=== PATIENT | female | born 1955 | race Caucasian/White ===

== ENCOUNTER 2020-08-15 11:12 | Inpatient (IN) | payer MEDICARE, OTHER, SELFPAY ==
[2020-08-15] VITALS (7 sets, daily range): BP systolic 136–152; BP diastolic 81–116; PULSE 89–138; RESP 18–24; TEMP 36.1–36.4; O2SAT 95–98; BMI 39.6
--- NOTE | 2020-08-15 12:13 | ED.PSYCH ---
HPI - Psych General Chief Complaint: Psychiatric Symptoms Stated Complaint: CRISIS Time Seen by Provider: 08/15/20 12:05 Source: family Mode of arrival: ambulatory Limitations: no limitations History of Present Illness HPI Narrative: inpatient running through eating to be admitted for ECT. states patient have severe depression which has not responded to medication as worsened the past 2 weeks. states patient tried to commit suicide many times 2 weeks ago states psychiatrist and therapist agree she needs ECT. MD complaint: suicidal ideation and feels depressed Related Data Home Medications Medication Instructions Recorded Confirmed atorvastatin 20 mg PO DAILY 08/15/20 08/15/20 clonazepam 3 mg PO BEDTIME 08/15/20 08/15/20 hydroxyzine HCl 50 mg PO BEDTIME 08/15/20 08/15/20 levothyroxine 88 mcg PO DAILY 08/15/20 08/15/20 mirtazapine 30 mg PO BEDTIME 08/15/20 08/15/20 nitroglycerin 0.4 mg SUBLINGUAL Q5M PRN 08/15/20 08/15/20 propranolol 20 mg PO BID 08/15/20 08/15/20 topiramate 75 mg PO BEDTIME 08/15/20 08/15/20 ziprasidone HCl 20 mg PO DAILY@1700 08/15/20 08/15/20 Allergies Allergy/AdvReac Type Severity Reaction Status Date / Time Iodinated Contrast Media Allergy Intermediate Hives Verified 08/15/20 12:27 Review of Systems Review of Systems: Severe depression and suicidal thoughts. Patient denies any physical complaints. Constitutional: Constitutional: Reports as per HPI and Reports no additional constitutional complaints Eyes: Eyes: Reports as per HPI and Reports no additional eye complaints ENT: Reports system reviewed and no additional complaints, except as documented and Reports as per HPI Cardiovascular: Cardiovascular: Reports as per HPI and Reports no additional cardiovascular complaints Respiratory: Respiratory: Reports as per HPI and Reports no additional respiratory complaints Gastrointestinal: Gastrointestinal: Reports as per HPI and Reports no additional gastrointestinal complaints Genitourinary: Genitourinary: Reports no additional female genitourinary complaints, Reports as per HPI, Denies abnormal menses, Denies abnormal vaginal bleeding, Denies flank pain, Denies urinary incontinence, Denies urinary hesitancy, Denies urinary urgency and Denies vaginal discharge Musculoskeletal: Musculoskeletal: Reports no additional musculoskeletal complaints and Reports as per HPI Psychiatric: Psychiatric: Reports no additional psychiatric complaints, Reports as per HPI, Reports anxiety and Reports depression [facility] Past Medical History Medical History (Updated 08/15/20 @ 17:42 by OMAR Ramirez) Constipation Endometriosis Surgical History (Updated 08/15/20 @ 12:25 by Cheyenne Calderon) Hx of appendectomy Social History Social History Alcohol intake: never Smoking Status: Never smoker Smoked in Last 30 Days: No Use of substances other than those prescribed or required for medical reasons: No Advance Directives: No Advance Directives Information Provided: No Physical Exam Vital Signs: Vital Signs: Vital Signs Temp Pulse Resp BP Pulse Ox 08/15/20 17:06 97.6 F 112 H 152/94 H 96 08/15/20 14:14 97 F 90 20 149/86 H 98 08/15/20 11:32 97 F 93 20 151/116 H 97 08/15/20 11:18 97 F 93 24 H 151/116 H Body Mass Index 39.6 Const: Other: Multiple skin excoriations on body. Patient constantly itching herself. General: cooperative, healthy appearing, no acute distress, well developed, alert and awake Orientation/consciousness: oriented to person, oriented to place, oriented to time and patient oriented x3 HENMT: Head: Yes normal to inspection Eyes: General: appearance normal, both eyes and all related structures Neck: Neck: Yes normal visual inspection, Yes full ROM, Yes no lymphadenopathy, Yes no meningeal signs, No positive Brudzinski's sign and No positive Kernig's sign Chest: Chest palpation & inspection: normal inspection of the chest and normal palpation of entire chest wall Resp: Effort & Inspection: normal respiratory effort, able to speak in complete sentences, no audible wheezes and no cough Auscultation: clear to auscultation bilaterally, no crackles, no rales, no rhonchi and no wheezes Percussion: percussion normal Cardio: Jugular venous distension: no JVD Heart sounds: S1 normal heart sound present and S2 normal heart sound present GI: Other: Multiple excoriation Inspection: Yes normal to inspection and No abdominal wall ecchymosis Palpation (GI): Soft to palpation, not firm, nontender, no guarding and not rigid : General: No CVA tenderness and Yes no CVA tenderness Back/Spine/Pelvis: Back: no CVA tenderness, No CVA tenderness and No back tenderness Skin: Other: positive for skin excoriation Neuro: General: oriented to person, oriented to place, oriented to time, patient oriented x3, no meningeal signs and CN's II-XI intact bilaterally Extrem: Other: positive for excoriations. General: Yes normal to inspection and Yes full ROM Psych: Other: Patient positive for severe anxiety and depression. Patient is suicial Course Course Course Narrative: Patient will have labs and baseline EKG. Crisis consult will be placed for admission. Reevaluation(s) Reevaluation #1: patient is a bed search for psych admission as per Care team organizational development consultant. Awaiating CMP. Case signed out to OMAR Mccabe to follow up CMP. Time: 17:45 MDM - Psych MDM Narrative Medical decision making narrative: Patient is a bed search for psych inpatient. Diagnosis is depression and severe anxety Restraints Face to Face Assessment: Face to Face Assessment: Current Situation: After assessment of the patient, a review of the pertinent medical record and a discussion with nursing staff, I feel the patient requires a restrain intervention. Reaction To: [] Medical Condition: [] Behavioral State: [] Continued Need: [] Lab Data Result diagrams: 08/15/20 15:38 Labs: Lab Results 08/15/20 08/15/20 08/15/20 Range/Units 11:56 11:57 15:38 WBC 6.8 (4.8-10.8) X10*3/uL RBC 5.37 (4.20-5.50) X10*6/uL Hgb 15.1 (12.0-16.0) g/dl Hct 47.4 H (37-47) % MCV 88.3 (80-98) fL MCH 28.1 (27.0-33.0) pg MCHC 31.9 (31.0-35.0) g/dl RDW 14.2 (11.0-16.0) % Plt Count 326 (160-400) X10*3/uL MPV 10.1 (9.4-12.3) fL Immature Gran % (Auto) 0.4 (0.0-0.4) % Neut % (Auto) 72.0 (45-73) % Lymph % (Auto) 19.1 L (20-40) % [place] % (Auto) 5.8 (2-11) % Eos % (Auto) 2.1 (0-4) % Baso % (Auto) 0.6 (0-2) % Lymph # (Auto) 1.3 (1.2-4.9) X10*3/uL [place] # (Auto) 0.4 (0.1-1.2) X10*3/uL Eos # (Auto) 0.1 (0.0-0.4) X10*3/uL Baso # (Auto) 0.0 (0.0-0.2) X10*3/uL Abs Immat Gran (auto) 0.03 (0.00-0.03) X10*3/uL Absolute Neuts (auto) 4.9 (2.0-8.3) X10*3/uL Absolute Nucleated RBC 0.000 (0.0-0.012) X10*3/uL Nucleated RBC % (auto) 0.0 (0.0-0.2) /100WBC PT (10.8-13.0) SEC INR (0.9-1.1) APTT (24.1-38.0) SEC Total Bilirubin (0.0-1.0) mg/dL Direct Bilirubin (0.0-0.5) mg/dL AST (5-31) U/L ALT (0-31) U/L Alkaline Phosphatase (39-117) U/L Total Protein (6.5-8.0) g/dL Albumin (3.5-5.0) g/dL Urine Color YELLOW Urine Appearance HAZY Urine pH 5.5 (5.0-8.0) Ur Specific [place] >= 1.030 H (1.005-1.025) Urine Protein NEG (NEG-TRACE) MG/DL Urine Glucose (UA) NEG (NEG) MG/DL Urine Ketones 40 (NEG) MG/DL Urine Blood NEG (NEG) Urine Nitrite NEG (NEG) Ur Leukocyte Esterase NEG (NEG) Salicylates (15-30) mg/dL Urine Opiates Screen Not Detected (Not Detect) Acetaminophen (<30) mcg/mL Ur Barbiturates Screen Not Detected (Not Detect) Ur Phencyclidine Scrn Not Detected (Not Detect) Ur Amphetamines Screen Not Detected (Not Detect) U Benzodiazepines Scrn POSITIVE H (Not Detect) Urine Cocaine Screen Not Detected (Not Detect) U Marijuana (THC) Screen Not Detected (Not Detect) Ethyl Alcohol mg/dL 08/15/20 08/15/20 08/15/20 Range/Units 15:38 15:38 15:38 WBC (4.8-10.8) X10*3/uL RBC (4.20-5.50) X10*6/uL Hgb (12.0-16.0) g/dl Hct (37-47) % MCV (80-98) fL MCH (27.0-33.0) pg MCHC (31.0-35.0) g/dl RDW (11.0-16.0) % Plt Count (160-400) X10*3/uL MPV (9.4-12.3) fL Immature Gran % (Auto) (0.0-0.4) % Neut % (Auto) (45-73) % Lymph % (Auto) (20-40) % [place] % (Auto) (2-11) % Eos % (Auto) (0-4) % Baso % (Auto) (0-2) % Lymph # (Auto) (1.2-4.9) X10*3/uL [place] # (Auto) (0.1-1.2) X10*3/uL Eos # (Auto) (0.0-0.4) X10*3/uL Baso # (Auto) (0.0-0.2) X10*3/uL Abs Immat Gran (auto) (0.00-0.03) X10*3/uL Absolute Neuts (auto) (2.0-8.3) X10*3/uL Absolute Nucleated RBC (0.0-0.012) X10*3/uL Nucleated RBC % (auto) (0.0-0.2) /100WBC PT (10.8-13.0) SEC INR (0.9-1.1) APTT (24.1-38.0) SEC Total Bilirubin 0.4 (0.0-1.0) mg/dL Direct Bilirubin 0.2 (0.0-0.5) mg/dL AST 18 (5-31) U/L ALT 17 (0-31) U/L Alkaline Phosphatase 99 (39-117) U/L Total Protein 7.0 (6.5-8.0) g/dL Albumin 4.2 (3.5-5.0) g/dL Urine Color Urine Appearance Urine pH (5.0-8.0) Ur Specific [place] (1.005-1.025) Urine Protein (NEG-TRACE) MG/DL Urine Glucose (UA) (NEG) MG/DL Urine Ketones (NEG) MG/DL Urine Blood (NEG) Urine Nitrite (NEG) Ur Leukocyte Esterase (NEG) Salicylates < 5.0 L (15-30) mg/dL Urine Opiates Screen (Not Detect) Acetaminophen < 1 (<30) mcg/mL Ur Barbiturates Screen (Not Detect) Ur Phencyclidine Scrn (Not Detect) Ur Amphetamines Screen (Not Detect) U Benzodiazepines Scrn (Not Detect) Urine Cocaine Screen (Not Detect) U Marijuana (THC) Screen (Not Detect) Ethyl Alcohol < 10 mg/dL 1025/20 Range/Units 15:38 WBC (4.8-10.8) X10*3/uL RBC (4.20-5.50) X10*6/uL Hgb (12.0-16.0) g/dl Hct (37-47) % MCV (80-98) fL MCH (27.0-33.0) pg MCHC (31.0-35.0) g/dl RDW (11.0-16.0) % Plt Count (160-400) X10*3/uL MPV (9.4-12.3) fL Immature Gran % (Auto) (0.0-0.4) % Neut % (Auto) (45-73) % Lymph % (Auto) (20-40) % [place] % (Auto) (2-11) % Eos % (Auto) (0-4) % Baso % (Auto) (0-2) % Lymph # (Auto) (1.2-4.9) X10*3/uL [place] # (Auto) (0.1-1.2) X10*3/uL Eos # (Auto) (0.0-0.4) X10*3/uL Baso # (Auto) (0.0-0.2) X10*3/uL Abs Immat Gran (auto) (0.00-0.03) X10*3/uL Absolute Neuts (auto) (2.0-8.3) X10*3/uL Absolute Nucleated RBC (0.0-0.012) X10*3/uL Nucleated RBC % (auto) (0.0-0.2) /100WBC PT 11.7 (10.8-13.0) SEC INR 1.0 (0.9-1.1) APTT 34.8 (24.1-38.0) SEC Total Bilirubin (0.0-1.0) mg/dL Direct Bilirubin (0.0-0.5) mg/dL AST (5-31) U/L ALT (0-31) U/L Alkaline Phosphatase (39-117) U/L Total Protein (6.5-8.0) g/dL Albumin (3.5-5.0) g/dL Urine Color Urine Appearance Urine pH (5.0-8.0) Ur Specific [place] (1.005-1.025) Urine Protein (NEG-TRACE) MG/DL Urine Glucose (UA) (NEG) MG/DL Urine Ketones (NEG) MG/DL Urine Blood (NEG) Urine Nitrite (NEG) Ur Leukocyte Esterase (NEG) Salicylates (15-30) mg/dL Urine Opiates Screen (Not Detect) Acetaminophen (<30) mcg/mL Ur Barbiturates Screen (Not Detect) Ur Phencyclidine Scrn (Not Detect) Ur Amphetamines Screen (Not Detect) U Benzodiazepines Scrn (Not Detect) Urine Cocaine Screen (Not Detect) U Marijuana (THC) Screen (Not Detect) Ethyl Alcohol mg/dL ECG Data Interpretation: Sinus rhythm with occasional premature ventricular complex ventricular rate 96 incomplete right bundle-branch block negative for STEMI. No EKG changes. Discharge Plan Discharge Clinical Impression: Depression, Acute anxiety Prescriptions: No Action atorvastatin 20 mg Tablet 20 mg PO DAILY RF: 0 clonazepam 1 mg Tablet 3 mg PO BEDTIME RF: 0 topiramate 25 mg Tablet 75 mg PO BEDTIME RF: 0 hydroxyzine HCl 50 mg Tablet 50 mg PO BEDTIME RF: 0 ziprasidone HCl 20 mg Capsule 20 mg PO DAILY@1700 RF: 0 mirtazapine 30 mg Tablet 30 mg PO BEDTIME RF: 0 nitroglycerin 0.4 mg Tablet, Sublingual 0.4 mg SUBLINGUAL Q5M PRN (Reason: Chest Pain) RF: 0 propranolol 20 mg Tablet 20 mg PO BID RF: 0 levothyroxine 88 mcg Capsule 88 mcg PO DAILY RF: 0
[2020-08-15 12:48] LABS: Glucose Urine UA NEG (NEG); Leukocyte Esterase Urine NEG (NEG); Nitrite Urine NEG (NEG); PH 5.5 (5.0-8.0); Specific Gravity - Urine >= 1.030 (1.005-1.025); Urine Blood NEG (NEG); Urine Ketones 40 MG/DL (NEG); Urine Protein NEG (NEG-TRACE)
--- NOTE | 2020-08-15 12:48 | PC.NURSE ---
CARE team in to evaluate
[2020-08-15 12:49] LABS: Appearance Urine HAZY; Color Urine YELLOW
[2020-08-15 13:12] LABS: Barbiturates, Urine Not Detected (Not Detect); Opiate Screen Urine Not Detected (Not Detect); Phencyclidine Screen Urine Not Detected (Not Detect)
[2020-08-15 13:13] LABS: Amphetamine Screen Urine Not Detected (Not Detect); Benzodiazepines Screen Urine POSITIVE (Not Detect); Cannabinoid Screen Urine Not Detected (Not Detect); Cocaine Screen Urine Not Detected (Not Detect)
[2020-08-15] MEDS: clonazePAM 1 MG TABLET 2 MG PO (13:41)
--- NOTE | 2020-08-15 14:36 | ECG_ITS ---
Test Reason : PRE ADMISSION Blood Pressure : / mmHG Vent. Rate : 096 BPM Atrial Rate : 096 BPM P-R Int : 126 ms QRS Dur : 116 ms QT Int : 370 ms P-R-T Axes : 052 028 -15 degrees QTc Int : 467 ms Sinus rhythm with occasional Premature ventricular complexes Incomplete right bundle branch block ST & T wave abnormality, consider inferior ischemia ST & T wave abnormality, consider anterolateral ischemia Abnormal ECG No previous ECGs available Referred By: Manuel Anglin Electronically Signed By:FRANCISCO RIVERS MD
[2020-08-15] MEDS: polyethylene glycoL 3350 17 GM POWD.PACK PO (14:52)
--- NOTE | 2020-08-15 14:56 | PC.NURSE ---
Pt in with . Pt continues to be very tearful, stating repeatedly 'i want to go home.' in w/ pt- at times irritable, accusatory 'if you lost her med list I'll take her out right now.' Pt stating that pt has been hospitalized in the past, and is requesting M5 now, states that pt's psychiatrist has already begun making arrangements w/ pt. Pt medicated for anxiety w/ clonopin - pt reluctant to take stating that ' i wont be able to take any when I get home.' Pt encouraged to accept the clonopin for anxiety and reminded that she will not be able to go home tonight. Pt also accepted medication for constipation- per pt, she has not been able to move her bowels x1 week. states pt has lost a lot of weight recently as she has not been eating, and drinking. Pt did accept miralax for constipation
--- NOTE | 2020-08-15 15:25 | PC.NURSE ---
labs being drawn
[2020-08-15 15:45] LABS: MANUAL DIFF FLAG NO
[2020-08-15 15:46] LABS: Basophils Percent Auto 0.6 % (0-2); Eosinophils Absolute Auto 0.1 X10*3/uL (0.0-0.4); Eosinophils Percent Auto 2.1 % (0-4); Hematocrit 47.4 % (37-47); Hemoglobin 15.1 g/dl (12.0-16.0); Imm Gran Abs Auto 0.03 X10*3/uL (0.00-0.03); Imm Gran Pct Auto 0.4 % (0.0-0.4); Lymphocytes Absolute Auto 1.3 X10*3/uL (1.2-4.9); Lymphocytes Percent Auto 19.1 % (20-40); Mean Corpuscular HGB Conc 31.9 g/dl (31.0-35.0); Mean Corpuscular Hemoglobin 28.1 pg (27.0-33.0); Mean Corpuscular Volume 88.3 fL (80-98); Mean Platelet Volume 10.1 fL (9.4-12.3); Monocytes Absolute Auto 0.4 X10*3/uL (0.1-1.2); Monocytes Percent Auto 5.8 % (2-11); Neutrophils Absolute Auto 4.9 X10*3/uL (2.0-8.3); Platelet Count 326 X10*3/uL (160-400); Red Blood Count 5.37 X10*6/uL (4.20-5.50); Red Cell Distribution Width 14.2 % (11.0-16.0); White Blood Count 6.8 X10*3/uL (4.8-10.8)
[2020-08-15 15:51] LABS: Prothrombin Time 11.7 SEC (10.8-13.0)
[2020-08-15 15:54] LABS: Partial Thromboplastin Time 34.8 SEC (24.1-38.0)
[2020-08-15 16:10] LABS: Acetaminophen LAB < 1 mcg/mL (<30); Alanine Aminotransferase 17 U/L (0-31); Albumin Level 4.2 g/dL (3.5-5.0); Alkaline Phosphatase 99 U/L (39-117); Aspartate Amino Transferase 18 U/L (5-31); Bilirubin Direct 0.2 mg/dL (0.0-0.5); Bilirubin Total 0.4 mg/dL (0.0-1.0); Salicylate < 5.0 mg/dL (15-30)
[2020-08-15 16:12] LABS: Ethanol < 10 mg/dL
--- NOTE | 2020-08-15 16:42 | PC.NURSE ---
of pt stating he needs to leave to go home- pt tearful, stating that she does not want to be here, reassured, pt difficult to console.
[2020-08-15 18:03] LABS: Anion Gap 15 (12-20); Blood Urea Nitrogen 10 mg/dL (9-16); Calcium 9.7 mg/dL (8.4-10.2); Carbon Dioxide 24 mmol/L (22-29); Chloride 106 mmol/L (96-108); Creatinine Clr Calc Pharmacy 67.5; Estimated Glomerular Filt Rate > 60; Glucose Random 125 mg/dL (60-115); Sodium 141 mmol/L (135-145)
[2020-08-15] MEDS: Propranolol HCL 20 MG TABLET PO (20:15)
[2020-08-15] MEDS: Mirtazapine 30 MG TABLET PO (20:15)
[2020-08-15] MEDS: Topiramate 25 MG TABLET 75 MG PO (23:16)
[2020-08-15] MEDS: clonazePAM 1 MG TABLET 3 MG PO (23:16)
[2020-08-15] MEDS: Atorvastatin Calcium 20 MG TABLET PO (23:17)
[2020-08-15] MEDS: Escitalopram Oxalate 5 MG TABLET PO (23:17)
[2020-08-15] MEDS: hydrOXYzine HCL 50 MG TABLET PO (23:17)
[2020-08-16] VITALS (7 sets, daily range): BP systolic 109–133; BP diastolic 67–83; PULSE 70–103; RESP 16–18; TEMP 36.2–36.4; O2SAT 96–98
[2020-08-16] MEDS: Ibuprofen 400 MG TABLET PO (05:28)
--- NOTE | 2020-08-16 06:15 | PC.NURSE ---
Patient in bed appears sleeping, no distress observed/reported, will continue to monitor, will continue to monitor.
--- NOTE | 2020-08-16 07:15 | PC.NURSE ---
PT PACING IN ED. DENIES ANY COMPLAINTS AT THIS TIME. RESPIRATIONS EVEN/UNLABORED BILATERALLY. WILL CONTINUE TO MONITOR.
--- NOTE | 2020-08-16 08:13 | PC.NURSE ---
Pt up to shower.
--- NOTE | 2020-08-16 09:08 | MHC.CARE ---
CARE Team contacted [facility] reference #[id number] , Pts current plan has out of network benefits, a single case agreement is not required. Pts plan additionally does not require pre-certification.
[2020-08-16] MEDS: Levothyroxine Sodium 88 MCG TABLET PO (09:19)
[2020-08-16] MEDS: Propranolol HCL 20 MG TABLET PO ×2 (09:20→21:50)
--- NOTE | 2020-08-16 11:23 | PC.NURSE ---
Pt's is taking all patients belongings home with him.
[2020-08-16] MEDS: polyethylene glycoL 3350 17 GM POWD.PACK PO (12:21)
[2020-08-16] MEDS: Ibuprofen 600 MG TABLET PO ×2 (12:21→18:43)
--- NOTE | 2020-08-16 12:24 | PC.NURSE ---
pt given ibuprofen for back pain and miralax for constipation.
--- NOTE | 2020-08-16 15:21 | PC.NURSE ---
Report received. Resting in room. Declined to place dinner when offered. Ensure ordered. Continues to be a section 12 bed search.
--- NOTE | 2020-08-16 16:26 | P.CNPS_ITS ---
History of Present Illness Chief Complaint: CRISIS Reason for Consult: Impaired sleep, worsening anxiety and depression Requesting physician: Barbara Partida Discussed with referring provider: Yes Sources of Information: patient interviewed and chart reviewed HPI Narrative: Pt is a 64 year old female with history of depression currently awaiting admission to psychiatric unit for worsening depressive sx, suicidal ideation and possible eval for ECT. Consult requested as patient expressing worsening anxiety since in ED and poor sleep last night. Pt seen in room 4 of area. Awake, alert, engaged in interview. Pt laying down for most on interview. Pt intermittently weeping stating she wanted to go home, though at the same time acknowledging that she needed to be admitted. Discussed current sx., including lack of sleep last evening.. Pt stated that inability to sleep last evening was likely due to not receiving one of her medications in the evening as she normally takes it at home. During interview patient asked this mortgage or loan underwriter several times to increase her Klonopin dose, when asked for rationale, she stated I know it will help me sleep . Pt is currently prescribed 3mg of Klonopin at . Past Psychiatric History: Please see crisis eval for full history, but stacy is currently followed outpt by Dr. Kristopher Fuentes Medical Evaluation Reviewed: Yes Personal & Social History: very involved Review of Systems Psychiatric: Reports abnormal sleep pattern, Reports anxiety, Reports change in appetite (decreased ), Reports depression, Reports hopelessness and Reports anhedonia [facility] Medical History (Updated 08/15/20 @ 17:42 by OMAR Ramirez) Constipation Endometriosis Surgical History (Updated 08/15/20 @ 12:25 by Cheyenne Calderon) Hx of appendectomy Diagnostics Vital Signs (24Hr): Vital Signs - 24 hr 08/15/20 17:06 08/15/20 20:15 08/15/20 20:22 Temperature 97.6 F Pulse Rate 112 H 138 H 138 H Respiratory Rate Blood Pressure 152/94 H 152/101 H 151/101 H Pulse Oximetry 96 97 08/15/20 23:24 08/16/20 05:36 08/16/20 09:13 Temperature 96.9 F 97.5 F 97.2 F Pulse Rate 89 103 H 70 Respiratory Rate 18 17 Blood Pressure 136/81 109/83 115/79 Pulse Oximetry 95 97 96 08/16/20 09:20 08/16/20 10:00 08/16/20 12:00 Temperature Pulse Rate 70 Respiratory Rate 16 18 Blood Pressure 115/79 Pulse Oximetry 08/16/20 16:17 Temperature 97.4 F Pulse Rate 86 Respiratory Rate 18 Blood Pressure 133/67 Pulse Oximetry 98 Body Mass Index 39.6 Labs Results: 08/15/20 15:38 08/15/20 15:38 Labs: Laboratory Results - last 48 hr 08/15/20 08/15/20 08/15/20 11:56 11:57 15:38 WBC 6.8 RBC 5.37 Hgb 15.1 Hct 47.4 H MCV 88.3 MCH 28.1 MCHC 31.9 RDW 14.2 Plt Count 326 MPV 10.1 Immature Gran % (Auto) 0.4 Neut % (Auto) 72.0 Lymph % (Auto) 19.1 L [place] % (Auto) 5.8 Eos % (Auto) 2.1 Baso % (Auto) 0.6 Lymph # (Auto) 1.3 [place] # (Auto) 0.4 Eos # (Auto) 0.1 Baso # (Auto) 0.0 Abs Immat Gran (auto) 0.03 Absolute Neuts (auto) 4.9 Absolute Nucleated RBC 0.000 Nucleated RBC % (auto) 0.0 PT INR APTT Sodium Potassium Chloride Carbon Dioxide Anion Gap BUN Creatinine Estim Creat Clear Calc Estimated GFR Random Glucose Calcium Total Bilirubin Direct Bilirubin AST ALT Alkaline Phosphatase Total Protein Albumin Urine Color YELLOW Urine Appearance HAZY Urine pH 5.5 Ur Specific [place] >= 1.030 H Urine Protein NEG Urine Glucose (UA) NEG Urine Ketones 40 Urine Blood NEG Urine Nitrite NEG Ur Leukocyte Esterase NEG Salicylates Urine Opiates Screen Not Detected Acetaminophen Ur Barbiturates Screen Not Detected Ur Phencyclidine Scrn Not Detected Ur Amphetamines Screen Not Detected U Benzodiazepines Scrn POSITIVE H Urine Cocaine Screen Not Detected U Marijuana (THC) Screen Not Detected Ethyl Alcohol 08/15/20 08/15/20 08/15/20 15:38 15:38 15:38 WBC RBC Hgb Hct MCV MCH MCHC RDW Plt Count MPV Immature Gran % (Auto) Neut % (Auto) Lymph % (Auto) [place] % (Auto) Eos % (Auto) Baso % (Auto) Lymph # (Auto) [place] # (Auto) Eos # (Auto) Baso # (Auto) Abs Immat Gran (auto) Absolute Neuts (auto) Absolute Nucleated RBC Nucleated RBC % (auto) PT INR APTT Sodium 141 Potassium 4.0 Chloride 106 Carbon Dioxide 24 Anion Gap 15 BUN 10 Creatinine 0.91 Estim Creat Clear Calc 67.5 Estimated GFR > 60 Random Glucose 125 H Calcium 9.7 Total Bilirubin 0.4 Direct Bilirubin 0.2 AST 18 ALT 17 Alkaline Phosphatase 99 Total Protein 7.0 Albumin 4.2 Urine Color Urine Appearance Urine pH Ur Specific [place] Urine Protein Urine Glucose (UA) Urine Ketones Urine Blood Urine Nitrite Ur Leukocyte Esterase Salicylates < 5.0 L Urine Opiates Screen Acetaminophen < 1 Ur Barbiturates Screen Ur Phencyclidine Scrn Ur Amphetamines Screen U Benzodiazepines Scrn Urine Cocaine Screen U Marijuana (THC) Screen Ethyl Alcohol < 10 08/15/20 15:38 WBC RBC Hgb Hct MCV MCH MCHC RDW Plt Count MPV Immature Gran % (Auto) Neut % (Auto) Lymph % (Auto) [place] % (Auto) Eos % (Auto) Baso % (Auto) Lymph # (Auto) [place] # (Auto) Eos # (Auto) Baso # (Auto) Abs Immat Gran (auto) Absolute Neuts (auto) Absolute Nucleated RBC Nucleated RBC % (auto) PT 11.7 INR 1.0 APTT 34.8 Sodium Potassium Chloride Carbon Dioxide Anion Gap BUN Creatinine Estim Creat Clear Calc Estimated GFR Random Glucose Calcium Total Bilirubin Direct Bilirubin AST ALT Alkaline Phosphatase Total Protein Albumin Urine Color Urine Appearance Urine pH Ur Specific [place] Urine Protein Urine Glucose (UA) Urine Ketones Urine Blood Urine Nitrite Ur Leukocyte Esterase Salicylates Urine Opiates Screen Acetaminophen Ur Barbiturates Screen Ur Phencyclidine Scrn Ur Amphetamines Screen U Benzodiazepines Scrn Urine Cocaine Screen U Marijuana (THC) Screen Ethyl Alcohol Mental Status Exam Mental Status Exam Patient Appearance: Well Grooomed Patient Orientation: Person, Place, Time and Situation Level of Consciousness: Awake and Alert Patient Behavior: Timid and Anxious Mood Description: Depressed, Anxious and Blunted Affect Description: Depressed, Anxious, Blunted and Apprehensive Patient Cognition Impaired: No Ability to Follow Directions: Excellent Speech Pattern: Clear and Soft-Spoken Hallucinations: None Thought Process: Rumination Thought Content: positive for Preoccupation and positive for Slowed Thinking Depressive Symptoms: Increased Anxiety, Difficulty Sleeping, Changes in Appetite, Crying Spells, Hopelessness, Unhappiness, Thoughts of /Suicide (Denies during interview, though attempts prior to admission ), Loss of Energy and Difficulty Concentrating Judgement: Fair Medications Medications Current Medications Generic Name Dose Route Start Last Admin Trade Name Torsten PRN Reason Stop Dose Admin Atorvastatin Calcium 20 mg 08/16/20 21:00 Atorvastatin Calcium 20 Mg Tablet PO BEDTIME ERIN Clonazepam 3 mg 08/15/20 23:15 08/15/20 23:16 Clonazepam 1 Mg Tablet PO 3 mg BEDTIME ERIN Administration Escitalopram Oxalate 5 mg 08/15/20 23:15 08/15/20 23:17 Escitalopram Oxalate 5 Mg Tablet PO 5 mg BEDTIME ERIN Administration Hydroxyzine HCl 50 mg 08/15/20 23:15 08/15/20 23:17 Hydroxyzine Hcl 50 Mg Tablet PO 50 mg BEDTIME ERIN Administration Hydroxyzine HCl 25 mg 08/16/20 16:10 Hydroxyzine Hcl 25 Mg Tablet PO Q6H PRN Anxiety Levothyroxine Sodium 88 mcg 08/16/20 09:00 08/16/20 09:19 Levothyroxine Sodium 88 Mcg Tablet PO 88 mcg DAILY ERIN Administration Mirtazapine 30 mg 08/15/20 21:00 08/15/20 20:15 Mirtazapine 30 Mg Tablet PO 30 mg BEDTIME ERIN Administration Nitroglycerin 0.4 mg 08/15/20 18:42 Nitroglycerin 0.4 Mg Tab.Subl SUBLINGUAL Q5M PRN Chest Pain Propranolol HCl 20 mg 08/15/20 21:00 08/16/20 09:20 Propranolol Hcl 20 Mg Tablet PO 20 mg BID ERIN Administration Protocol Topiramate 75 mg 08/15/20 23:15 08/15/20 23:16 Topiramate 25 Mg Tablet PO 75 mg BEDTIME ERIN Administration Ziprasidone 20 mg 08/16/20 21:00 Ziprasidone 20 Mg Capsule PO BEDTIME ERIN Allergies Allergies Allergy/AdvReac Type Severity Reaction Status Date / Time Iodinated Contrast Media Allergy Intermediate Hives Verified 08/15/20 12:27 Assessment & Plan Assessment & Plan (1) Depression: Status: Acute Code(s): F32.9 - Major depressive disorder, single episode, unspecified Recommendations: * Atarax 25mg PRN for anxiety * Bedtime orders rectified, so pt will now be receiving Geodon as she is taking it at home * Awaiting admission to psychiatric unit Greater than 50% of the session was spent on counseling and/or coordination of care
[2020-08-16] MEDS: Mirtazapine 30 MG TABLET PO (21:50)
[2020-08-16] MEDS: Ziprasidone 20 MG CAPSULE PO (21:51)
[2020-08-16] MEDS: hydrOXYzine HCL 50 MG TABLET PO (21:51)
[2020-08-16] MEDS: Atorvastatin Calcium 20 MG TABLET PO (21:51)
[2020-08-16] MEDS: clonazePAM 1 MG TABLET 3 MG PO (21:51)
[2020-08-16] MEDS: Escitalopram Oxalate 5 MG TABLET PO (21:51)
[2020-08-16] MEDS: Topiramate 25 MG TABLET 75 MG PO (21:51)
[2020-08-17 00:34] VITALS: RESP 16
--- NOTE | 2020-08-17 07:02 | PC.NURSE ---
Report received. PT currently eating breakfast, requesting motrin, denies other complaints. Pt is inpatient bedsearch.
[2020-08-17 08:57] VITALS: BP 107/55; PULSE 89; RESP 16; TEMP 36.6; O2SAT 95
[2020-08-17] MEDS: hydrOXYzine HCL 25 MG TABLET PO ×2 (09:07→22:54)
[2020-08-17] MEDS: Levothyroxine Sodium 88 MCG TABLET PO (09:07)
[2020-08-17 09:10] VITALS: BP 107/55; PULSE 89
[2020-08-17 10:15] LABS: SARS COV2 PCR INHOUSE NEGATIVE (Negative)
[2020-08-17] MEDS: polyethylene glycoL 3350 17 GM POWD.PACK PO (13:52)
[2020-08-17] MEDS: Ibuprofen 600 MG TABLET PO (15:19)
[2020-08-17 15:56] VITALS: BP 131/78; PULSE 111; RESP 16; TEMP 36.2; O2SAT 95
[2020-08-17 18:00] VITALS: BP 131/78; PULSE 111; RESP 16; TEMP 36.2; O2SAT 95
[2020-08-17] MEDS: clonazePAM 1 MG TABLET 3 MG PO (21:25)
[2020-08-17] MEDS: Atorvastatin Calcium 20 MG TABLET PO (21:25)
[2020-08-17] MEDS: Ziprasidone 20 MG CAPSULE PO (21:26)
[2020-08-17] MEDS: Topiramate 25 MG TABLET 75 MG PO (21:26)
[2020-08-17] MEDS: hydrOXYzine HCL 50 MG TABLET PO (21:26)
[2020-08-17 21:27] VITALS: BP 137/92; PULSE 122
[2020-08-17] MEDS: Escitalopram Oxalate 5 MG TABLET PO (21:27)
[2020-08-17] MEDS: Mirtazapine 30 MG TABLET PO (21:27)
[2020-08-17] MEDS: Propranolol HCL 20 MG TABLET PO (21:27)
[2020-08-17] MEDS: Magnesium Citrate 300 ML SOLUTION 150 ML PO (22:53)
[2020-08-18 07:29] VITALS: BP 105/83; PULSE 81; TEMP 35.8
[2020-08-18 08:27] VITALS: BP 105/83; PULSE 81
[2020-08-18] MEDS: Levothyroxine Sodium 88 MCG TABLET PO (08:27)
[2020-08-18] MEDS: Propranolol HCL 20 MG TABLET PO ×2 (08:27→21:42)
[2020-08-18 09:40] VITALS: O2SAT 97
--- NOTE | 2020-08-18 12:14 | P.HPPS_ITS ---
HPI Chief Complaint: Depression Sources of Information: patient interviewed, chart reviewed and crisis/core team assessment reviewed HPI Narrative: the patient is a 64-year-old female with a history of recurrent depression. The patient is referred through the emergency room status post suicide attempt her with a Klonopin overdose. The patient was brought to the emergency room by her who rescue the patient from the overdose attempt. Patient's reportedly states he is no longer able to keep her safe at home. Patient has been increasingly despondent has had problems with concentration attention difficulty D she states with her eyes and feeling that she cannot live like this any longer. She has had her eyes examined there has been no difficulty. Patient is anxious tends to ruminate has reportedly lost 40 lb since March. She has been increasingly hopeless helpless despondent with intrusive suicidal thoughts. She has had a number of reported medication changes including tapering off of Cymbalta clonazepam was recently increased to 3 mg bedtime she was restarted on Lexapro 5 mg daily has been on mirtazapine 30 mg daily. She is also on Topamax 75 mg Geodon 20 mg hydroxyzine 50 mg at bedtime atorvastatin 10 mg daily levothyroxine 88 micro g daily propranolol 20 b.i.d. nitroglycerin 0.4 mg sublingual p.r.n.. The patient has not had trials of lithium Lamictal Abilifkat Rexulti. The patient in the emergency room was reportedly wanting to go home she had been referred to this telegraphic typewriter installer by Dr. Fuentes her outpatient psychiatrist for go luation of ECT or TMS. Patient has been increasingly decompensating since March. Her psychiatrist is Dr. Hannah Fuentes telephone [phone] to patient denies any history of caro denies any history of hallucinations or delusional material Past Psychiatric History: Please see crisis eval for full history, but patient is currently followed outpt by Dr. Kristopher Fuentes the patient has a history of prior psychiatric hospitalizations last at [facility] 2 and half years ago. History of suicidality but until wrist recently no history of past suicide attempt. First depressive episode age 51 the patient has a history of hospitalization at [facility] in 2017 another hospitalization 2018 she is mode had multiple medication trials. [facility] Medical History (Updated 08/18/20 @ 22:26 by Deondre Briceño MD) Constipation Endometriosis Hypercholesteremia Hypertension Major depressive disorder, recurrent severe without psychotic features Surgical History (Updated 08/15/20 @ 12:25 by Cheyenne Calderon) Hx of appendectomy Family History: family history of depression and suicidality id brother committed suicide by hanging Social History: the patient is has 2 children she states she is happily for 46 years the patient is a number of grandchildren patient is 1 of 5 children Substance History: denies any history of alcohol or substance abuse Trauma History: denies any trauma history Diagnostics Vital Signs (24Hr): Vital Signs - 24 hr 08/17/20 15:56 08/17/20 18:00 08/17/20 21:27 Temperature 97.1 F 97.1 F Pulse Rate 111 H 111 H 122 H Respiratory Rate 16 16 Blood Pressure 131/78 131/78 137/92 H Pulse Oximetry 95 95 08/18/20 07:29 08/18/20 08:27 08/18/20 09:40 Temperature 96.4 F L Pulse Rate 81 81 Respiratory Rate Blood Pressure 105/83 105/83 Pulse Oximetry 97 Body Mass Index 39.6 Labs Results: 08/15/20 15:38 08/15/20 15:38 Labs: Laboratory Results - last 48 hr 08/17/20 09:11 Coronavirus (PCR) NEGATIVE Meds/Allergies Meds Home Medications Medication Instructions Recorded Confirmed Type atorvastatin 10 mg PO DAILY 08/15/20 08/15/20 History clonazepam 3 mg PO BEDTIME 08/15/20 08/15/20 History escitalopram oxalate [Lexapro] 5 mg PO BEDTIME 08/15/20 08/15/20 History hydroxyzine HCl 50 mg PO BEDTIME 08/15/20 08/15/20 History levothyroxine 88 mcg PO DAILY 08/15/20 08/15/20 History mirtazapine 30 mg PO BEDTIME 08/15/20 08/15/20 History nitroglycerin 0.4 mg SUBLINGUAL Q5M PRN 08/15/20 08/15/20 History propranolol 20 mg PO BID 08/15/20 08/15/20 History topiramate 75 mg PO BEDTIME 08/15/20 08/15/20 History ziprasidone HCl 20 mg PO DAILY@1700 08/15/20 08/15/20 History Allergies Allergies Allergy/AdvReac Type Severity Reaction Status Date / Time Iodinated Contrast Media Allergy Intermediate Hives Verified 08/15/20 12:27 Mental Status Exam Mental Status Exam Patient Appearance: Appropriate Patient Orientation: Person, Place and Situation Level of Consciousness: Awake Patient Behavior: Talkative Mood Description: Anxious, Sad and Nervous Affect Description: Anxious, Labile ( Becomes tearful in saying she just wants to go home), Sad and Nervous Ability to Follow Directions: Fair Speech Pattern: Perseverating Hallucinations: None Delusions: Not Present Thought Process: Distracted and Rumination Thought Content: positive for Obsessional Thoughts, positive for Perseveration, positive for Suicidal Ideation ( intrusive thoughts that she would be better off cannot stand how she feels denies plan or intent in this setting) and negative for Homicidal Ideation Depressive Symptoms: Increased Anxiety, Insomnia, Difficulty Sleeping, Thoughts of /Suicide and Difficulty Concentrating Judgement: Fair Judgement and Insight: had discussion with patient regarding treatment and ECT need for hospitalization. Patient became caught and obsessional loop has limited insight judgment at this time difficulty with perspective Assessment & Plan Assessment & Plan (1) Major depressive disorder, recurrent severe without psychotic features: Status: Acute Code(s): F33.2 - Major depressive disorder, recurrent severe without psychotic features (2) Suicidal ideation: Status: Acute Code(s): R45.851 - Suicidal ideations (3) Severe anxiety: Status: Acute Code(s): F41.9 - Anxiety disorder, unspecified Assessment and Plan: continue present medication trial. Unclear why patient is on 3 mg of clonazepam and might benefit from Seroquel or Zyprexa at bedtime for agitated depression. Will try and coordinate care with Dr. Fuentes patient's outpatient psychiatrist and will discuss with patient Dr. Fuentes and has been consideration of ECT which has been considered. Patient to unstable for TMS. Consideration could also be given to trial of Abilify. Check labs EKG medical consult patient given literature regarding ECT and also option of viewing inf ormation by video monitor for safety patient denies suicidal plan or intent in this setting had been head banging will monitor Patient educated on: diagnosis, medication risk/benefits and ECT Informed Consent: further education needed Reason for continued inpatient stay Substantial Risk for: harm to self
[2020-08-18] MEDS: hydrOXYzine HCL 25 MG TABLET PO ×2 (12:22→22:43)
[2020-08-18 18:00] VITALS: BP 147/88; PULSE 92; TEMP 36.2
[2020-08-18] MEDS: clonazePAM 1 MG TABLET 3 MG PO (21:40)
[2020-08-18] MEDS: Atorvastatin Calcium 20 MG TABLET PO (21:40)
[2020-08-18] MEDS: Topiramate 25 MG TABLET 75 MG PO (21:41)
[2020-08-18] MEDS: Mirtazapine 30 MG TABLET PO (21:41)
[2020-08-18] MEDS: Escitalopram Oxalate 5 MG TABLET PO (21:41)
[2020-08-18] MEDS: hydrOXYzine HCL 50 MG TABLET PO (21:41)
[2020-08-18 21:42] VITALS: BP 147/88; PULSE 92
[2020-08-18] MEDS: Ziprasidone 20 MG CAPSULE PO (21:42)
--- NOTE | 2020-08-19 | ECG_ITS ---
Test Reason : ECT CLEARENCE Blood Pressure : / mmHG Vent. Rate : 063 BPM Atrial Rate : 063 BPM P-R Int : 112 ms QRS Dur : 118 ms QT Int : 446 ms P-R-T Axes : 028 010 -07 degrees QTc Int : 456 ms Normal sinus rhythm Incomplete right bundle branch block ST & T wave abnormality, consider anterior ischemia Abnormal ECG When compared with ECG of 15-AUG-2020 15:54, Premature ventricular complexes are no longer Present Vent. rate has decreased BY 33 BPM Referred By: Deondre Briceño Electronically Signed By:FRANCISCO RIVERS MD
--- NOTE | 2020-08-19 | CT_ITS ---
EXAMINATION: CT HEAD WITHOUT CONTRAST CLINICAL INFORMATION: pre ect periods of confusion memory difficulty COMPARISON: None TECHNIQUE: Contiguous axial imaging was performed from the skull base to vertex without intravenous administration of contrast. Additional 2-D coronal and sagittal reformatted images are generated on the CT workstation and uploaded to PACS. DOSE LOWERING TECHNIQUES: This CT examination was performed using dose optimization techniques as appropriate, variously including the following: *Automated exposure control *Adjustment of mA and/or kV according to patient size (this includes techniques or standardized protocols for targeted exams where dose is matched to indication/reason for exam; i.e. extremities or head) *Use of iterative reconstruction technique DLP: 728 mGy-cm FINDINGS: There is no intracranial hemorrhage, hematoma, or extra-axial fluid collection. The ventricles are normal in size. There is no hydrocephalus, edema, or mass effect. The zheng-white matter differentiation appears symmetric. There is small perivascular Virchow-Bernard space inferior left basal ganglia. Punctate basal ganglia calcification also seen on left. There is no visible acute territorial infarct or mass lesion. There is incidental dural calcification just right of midline at vertex. The calvarium appears intact. There is no pneumocephalus or orbital emphysema. The visualized sinuses and middle ears and mastoid air cells show no significant mucosal thickening. There are no air-fluid levels. CT/CT head/brain wo con IMPRESSION: No acute intracranial abnormality.
[2020-08-19] MEDS: hydrOXYzine HCL 25 MG TABLET PO ×2 (03:26→09:48)
[2020-08-19 06:55] VITALS: BP 109/55; PULSE 77; RESP 16; TEMP 35.8
[2020-08-19 07:00] VITALS: BMI 38.3
[2020-08-19 08:33] LABS: Alanine Aminotransferase 18 U/L (0-31); Albumin Level 4.1 g/dL (3.5-5.0); Alkaline Phosphatase 99 U/L (39-117); Anion Gap 12 (12-20); Aspartate Amino Transferase 26 U/L (5-31); Bilirubin Total 0.5 mg/dL (0.0-1.0); Blood Urea Nitrogen 12 mg/dL (9-16); Calcium 9.4 mg/dL (8.4-10.2); Carbon Dioxide 27 mmol/L (22-29); Chloride 103 mmol/L (96-108); Cholesterol 151 mg/dL; Creatinine Clr Calc Pharmacy 66.8; Estimated Glomerular Filt Rate > 60; Glucose Fasting 112 mg/dL (60-99); HDL Cholesterol 52 mg/dL; LDL Cholesterol Calculated 76 mg/dl; Potassium 4.2 mmol/l (3.3-5.1); Sodium 138 mmol/L (135-145); Total Protein 6.7 g/dL (6.5-8.0); Triglycerides 119 mg/dL
[2020-08-19 08:49] LABS: TSH reflex Free T4 1.07 mIU/mL (0.32-4.0)
[2020-08-19 09:24] LABS: Reflex LDLD? No
[2020-08-19 09:27] LABS: Folate 12.4 ng/mL (> or = 4.0); Vitamin B12 364 pg/mL (200-900)
[2020-08-19 09:40] VITALS: BP 109/55; PULSE 77
[2020-08-19] MEDS: Propranolol HCL 20 MG TABLET PO ×2 (09:40→21:53)
[2020-08-19] MEDS: Levothyroxine Sodium 88 MCG TABLET PO (09:40)
[2020-08-19] MEDS: Trolamine Salicylate 10 % Cream 85 GM TUBE 1 APPL TOPICAL (16:17)
--- NOTE | 2020-08-19 16:34 | P.CONIM_ITS ---
History of Present Illness Data of Consult Service Date: 08/19/20 Requesting physician: Michelle rBiceño Primary Care Provider: Hilda Flowers MD [facility] Reason for consult: ECT clearance 64 year female with HLD, HTN, hypothyroidism, Major depression who is presently admitted to inpatient Psych unit due to depression with Suicide attempt by klonopin overdose. ECT is being contemplated as part of treatment plan and patient is being medically evaluated for this. She has never had this procedure before and is unsure if she will go through it. She report no chest pain, no sob and MIRAMONTES and does not endorse any covid symptoms. Review of Systems Review of Systems: Gen: no fever Resp: no SOB Card: no chest pain, no leg edema, no MIRAMONTES GI: no N/V Psych: Depression, SI Yes all other systems are reviewed and are negative [facility] Medical History (Updated 08/19/20 @ 16:42 by Darren Patterson MD) Constipation Endometriosis Hypercholesteremia Hypertension Hypothyroidism Major depressive disorder, recurrent severe without psychotic features Functional capacity: independent ambulation Pertinent family history: There is family history of HLD, HTN on both sides of family Surgical History Hx of appendectomy Social History Household Members: Spouse Housing: House Do you presently have visiting nurse or other home services: No Alcohol intake: never Smoking Status: Never smoker Smoked in Last 30 Days: No Use of substances other than those prescribed or required for medical reasons: No Currently Displaying Signs/Symptoms of Drug Intoxication Withdrawal: No Have you been hit, kicked, punched, or otherwise hurt by someone within the past year? If so, by whom?: No Do you feel safe in your current relationship?: Yes Is there a partner from a previous relationship who is making you feel unsafe now?: No Are you made to feel afraid or neglected: No Spiritual Healthcare Practices: NONE IDENTIFIED Advance Directives: No Advance Directives Information Provided: No Advance Directives on File: No Do you have thoughts of harming others: None Do you have a plan to hurt others: No Plan Recently lost weight without trying: Yes service: No Sexual orientation: Straight/Heterosexual Meds Allergies Allergy/AdvReac Type Severity Reaction Status Date / Time Iodinated Contrast Media Allergy Intermediate Hives Verified 08/15/20 12:27 Home Medications Medication Instructions Recorded Confirmed Type atorvastatin 10 mg PO DAILY 08/15/20 08/15/20 History clonazepam 3 mg PO BEDTIME 08/15/20 08/15/20 History escitalopram oxalate [Lexapro] 5 mg PO BEDTIME 08/15/20 08/15/20 History hydroxyzine HCl 50 mg PO BEDTIME 08/15/20 08/15/20 History levothyroxine 88 mcg PO DAILY 08/15/20 08/15/20 History mirtazapine 30 mg PO BEDTIME 08/15/20 08/15/20 History nitroglycerin 0.4 mg SUBLINGUAL Q5M PRN 08/15/20 08/15/20 History propranolol 20 mg PO BID 08/15/20 08/15/20 History topiramate 75 mg PO BEDTIME 08/15/20 08/15/20 History ziprasidone HCl 20 mg PO DAILY@1700 08/15/20 08/15/20 History Physical Exam Vital Signs and Narrative: Vital Signs: Last Vital Signs Temp 96.4 F L 08/19/20 06:55 Pulse 77 08/19/20 09:40 Resp 16 08/19/20 06:55 BP 109/55 L 08/19/20 09:40 Pulse Ox 97 08/18/20 09:40 Body Mass Index 38.3 Results Labs Labs: Laboratory Tests 08/15/20 08/15/20 08/15/20 11:56 11:57 15:38 WBC 6.8 RBC 5.37 Hgb 15.1 Hct 47.4 H MCV 88.3 MCH 28.1 MCHC 31.9 RDW 14.2 Plt Count 326 MPV 10.1 Immature Gran % (Auto) 0.4 Neut % (Auto) 72.0 Lymph % (Auto) 19.1 L [place] % (Auto) 5.8 Eos % (Auto) 2.1 Baso % (Auto) 0.6 Lymph # (Auto) 1.3 [place] # (Auto) 0.4 Eos # (Auto) 0.1 Baso # (Auto) 0.0 Abs Immat Gran (auto) 0.03 Absolute Neuts (auto) 4.9 Absolute Nucleated RBC 0.000 Nucleated RBC % (auto) 0.0 PT INR APTT Sodium Potassium Chloride Carbon Dioxide Anion Gap BUN Creatinine Estim Creat Clear Calc Estimated GFR Random Glucose Fasting Glucose Calcium Total Bilirubin Direct Bilirubin AST ALT Alkaline Phosphatase Total Protein Albumin Triglycerides Cholesterol LDL Cholesterol, Calc HDL Cholesterol Vitamin B12 Folate TSH Urine Color YELLOW Urine Appearance HAZY Urine pH 5.5 Ur Specific [place] >= 1.030 H Urine Protein NEG Urine Glucose (UA) NEG Urine Ketones 40 Urine Blood NEG Urine Nitrite NEG Ur Leukocyte Esterase NEG Salicylates Urine Opiates Screen Not Detected Acetaminophen Ur Barbiturates Screen Not Detected Ur Phencyclidine Scrn Not Detected Ur Amphetamines Screen Not Detected U Benzodiazepines Scrn POSITIVE H Urine Cocaine Screen Not Detected U Marijuana (THC) Screen Not Detected Ethyl Alcohol Coronavirus (PCR) 08/15/20 08/15/20 08/15/20 15:38 15:38 15:38 WBC RBC Hgb Hct MCV MCH MCHC RDW Plt Count MPV Immature Gran % (Auto) Neut % (Auto) Lymph % (Auto) [place] % (Auto) Eos % (Auto) Baso % (Auto) Lymph # (Auto) [place] # (Auto) Eos # (Auto) Baso # (Auto) Abs Immat Gran (auto) Absolute Neuts (auto) Absolute Nucleated RBC Nucleated RBC % (auto) PT INR APTT Sodium 141 Potassium 4.0 Chloride 106 Carbon Dioxide 24 Anion Gap 15 BUN 10 Creatinine 0.91 Estim Creat Clear Calc 67.5 Estimated GFR > 60 Random Glucose 125 H Fasting Glucose Calcium 9.7 Total Bilirubin 0.4 Direct Bilirubin 0.2 AST 18 ALT 17 Alkaline Phosphatase 99 Total Protein 7.0 Albumin 4.2 Triglycerides Cholesterol LDL Cholesterol, Calc HDL Cholesterol Vitamin B12 Folate TSH Urine Color Urine Appearance Urine pH Ur Specific [place] Urine Protein Urine Glucose (UA) Urine Ketones Urine Blood Urine Nitrite Ur Leukocyte Esterase Salicylates < 5.0 L Urine Opiates Screen Acetaminophen < 1 Ur Barbiturates Screen Ur Phencyclidine Scrn Ur Amphetamines Screen U Benzodiazepines Scrn Urine Cocaine Screen U Marijuana (THC) Screen Ethyl Alcohol < 10 Coronavirus (PCR) 08/15/20 08/17/20 08/19/20 15:38 09:11 07:49 WBC RBC Hgb Hct MCV MCH MCHC RDW Plt Count MPV Immature Gran % (Auto) Neut % (Auto) Lymph % (Auto) [place] % (Auto) Eos % (Auto) Baso % (Auto) Lymph # (Auto) [place] # (Auto) Eos # (Auto) Baso # (Auto) Abs Immat Gran (auto) Absolute Neuts (auto) Absolute Nucleated RBC Nucleated RBC % (auto) PT 11.7 INR 1.0 APTT 34.8 Sodium 138 Potassium 4.2 Chloride 103 Carbon Dioxide 27 Anion Gap 12 BUN 12 Creatinine 0.92 Estim Creat Clear Calc 66.8 Estimated GFR > 60 Random Glucose Fasting Glucose 112 H Calcium 9.4 Total Bilirubin 0.5 Direct Bilirubin AST 26 D ALT 18 Alkaline Phosphatase 99 Total Protein 6.7 Albumin 4.1 Triglycerides 119 Cholesterol 151 LDL Cholesterol, Calc 76 HDL Cholesterol 52 Vitamin B12 Folate TSH 1.07 Urine Color Urine Appearance Urine pH Ur Specific [place] Urine Protein Urine Glucose (UA) Urine Ketones Urine Blood Urine Nitrite Ur Leukocyte Esterase Salicylates Urine Opiates Screen Acetaminophen Ur Barbiturates Screen Ur Phencyclidine Scrn Ur Amphetamines Screen U Benzodiazepines Scrn Urine Cocaine Screen U Marijuana (THC) Screen Ethyl Alcohol Coronavirus (PCR) NEGATIVE 08/19/20 07:49 WBC RBC Hgb Hct MCV MCH MCHC RDW Plt Count MPV Immature Gran % (Auto) Neut % (Auto) Lymph % (Auto) [place] % (Auto) Eos % (Auto) Baso % (Auto) Lymph # (Auto) [place] # (Auto) Eos # (Auto) Baso # (Auto) Abs Immat Gran (auto) Absolute Neuts (auto) Absolute Nucleated RBC Nucleated RBC % (auto) PT INR APTT Sodium Potassium Chloride Carbon Dioxide Anion Gap BUN Creatinine Estim Creat Clear Calc Estimated GFR Random Glucose Fasting Glucose Calcium Total Bilirubin Direct Bilirubin AST ALT Alkaline Phosphatase Total Protein Albumin Triglycerides Cholesterol LDL Cholesterol, Calc HDL Cholesterol Vitamin B12 364 Folate 12.4 TSH Urine Color Urine Appearance Urine pH Ur Specific [place] Urine Protein Urine Glucose (UA) Urine Ketones Urine Blood Urine Nitrite Ur Leukocyte Esterase Salicylates Urine Opiates Screen Acetaminophen Ur Barbiturates Screen Ur Phencyclidine Scrn Ur Amphetamines Screen U Benzodiazepines Scrn Urine Cocaine Screen U Marijuana (THC) Screen Ethyl Alcohol Coronavirus (PCR) Assessment and Plan (1) Major depressive disorder, recurrent severe without psychotic features: Status: Acute (2) Severe anxiety: Status: Acute (3) Suicidal ideation: Status: Acute (4) Hypothyroidism: Status: Acute (5) Depression: Status: Acute (6) Acute anxiety: Status: Acute 64 year female with HTN, HLD, hypothyrodism and major depression presently admitted for depression with suicide attempt and is being considered for ECT. She has no angina or heart failure symptoms at this time. I reviewed ECG which does show an incomplete RBBB which appear to be old, no old for comparaison. Recommendation: At this time, there is no absolute contraindication to ECT and one should take usual precaution. ' -Continue home meds for HTN, HLD, Hypotnyroidism. Continue Pharmcotherapy and behavioral therapy for depression. Thanks you for the consult
[2020-08-19 18:00] VITALS: BP 134/71; PULSE 80; TEMP 36.4
--- NOTE | 2020-08-19 21:46 | HO.PSYCHPN ---
Subjective Subjective Date of Service: 08/19/20 Reason For Visit: Depression Subjective Notes: Conditional Voluntary Interim History: patient anxious ruminating depressed somewhat help rejecting distressed complains of visual difficulty states is related to the depression refusing any eye consult ophthalmic consult. Wants to feel better yet fearful of making any medication change. Extensive conversation with patient's this morning risks benefits and alternatives to ECT. He also asked about the possibility of involuntary ECT. Medication Compliance: Yes Side effects from medications: No Mental Status Exam Mental Status Exam Patient Appearance: Appropriate Patient Orientation: Person, Place and Situation Level of Consciousness: Awake Patient Behavior: Talkative, Restless, Fearful and Distractible Mood Description: Depressed, Fearful, Anxious, Sad and Nervous Affect Description: Anxious, Labile ( Becomes tearful in saying she just wants to go home), Sad and Nervous Ability to Follow Directions: Fair Speech Pattern: Perseverating Hallucinations: None Delusions: Not Present Thought Process: Distracted and Rumination Thought Content: positive for Obsessional Thoughts, positive for Perseveration, positive for Suicidal Ideation ( intrusive thoughts that she would be better off cannot stand how she feels denies plan or intent in this setting) and negative for Homicidal Ideation Depressive Symptoms: Increased Anxiety, Insomnia, Difficulty Sleeping, Thoughts of /Suicide and Difficulty Concentrating Judgement: Fair Judgement and Insight: Patient having difficulty taking an information desperately asking for help E et fearful to accept help Diagnostics Vital Signs (24Hr): Vital Signs - 24 hr 08/19/20 06:55 08/19/20 09:40 08/19/20 18:00 Temperature 96.4 F L 97.6 F Pulse Rate 77 77 80 Respiratory Rate 16 Blood Pressure 109/55 L 109/55 L 134/71 Body Mass Index 38.3 Labs Results: 08/15/20 15:38 08/19/20 07:49 Labs: Laboratory Results - last 48 hr 08/19/20 08/19/20 07:49 07:49 Sodium 138 Potassium 4.2 Chloride 103 Carbon Dioxide 27 Anion Gap 12 BUN 12 Creatinine 0.92 Estim Creat Clear Calc 66.8 Estimated GFR > 60 Fasting Glucose 112 H Calcium 9.4 Total Bilirubin 0.5 AST 26 D ALT 18 Alkaline Phosphatase 99 Total Protein 6.7 Albumin 4.1 Triglycerides 119 Cholesterol 151 LDL Cholesterol, Calc 76 HDL Cholesterol 52 Vitamin B12 364 Folate 12.4 TSH 1.07 Imaging Radiology Impressions: ITS Impressions Head CT 08/19/20 00:00 IMPRESSION: No acute intracranial abnormality. Medications Medications Current Medications Generic Name Dose Route Start Last Admin Trade Name Berhaneq PRN Reason Stop Dose Admin Atorvastatin Calcium 20 mg 08/16/20 21:00 08/18/20 21:40 Atorvastatin Calcium 20 Mg Tablet PO 20 mg BEDTIME ERIN Administration Clonazepam 3 mg 08/15/20 23:15 08/18/20 21:40 Clonazepam 1 Mg Tablet PO 3 mg BEDTIME ERIN Administration Escitalopram Oxalate 5 mg 08/15/20 23:15 08/18/20 21:41 Escitalopram Oxalate 5 Mg Tablet PO 5 mg BEDTIME ERIN Administration Hydroxyzine HCl 50 mg 08/15/20 23:15 08/18/20 21:41 Hydroxyzine Hcl 50 Mg Tablet PO 50 mg BEDTIME ERIN Administration Hydroxyzine HCl 25 mg 08/16/20 16:10 08/19/20 09:48 Hydroxyzine Hcl 25 Mg Tablet PO 25 mg Q6H PRN Administration Anxiety Ibuprofen 600 mg 08/19/20 20:12 Ibuprofen 600 Mg Tablet PO Q8H PRN Pain, Moderate (Pain Scale 4-6 Levothyroxine Sodium 88 mcg 08/16/20 09:00 08/19/20 09:40 Levothyroxine Sodium 88 Mcg Tablet PO 88 mcg DAILY ERIN Administration Magnesium Citrate 150 ml 08/17/20 18:31 08/17/20 22:53 Magnesium Citrate 300 Ml Solution PO 150 ml BID PRN Administration Constipation Mirtazapine 30 mg 08/15/20 21:00 08/18/20 21:41 Mirtazapine 30 Mg Tablet PO 30 mg BEDTIME ERIN Administration Nitroglycerin 0.4 mg 08/15/20 18:42 Nitroglycerin 0.4 Mg Tab.Subl SUBLINGUAL Q5M PRN Chest Pain Olanzapine 2.5 mg 08/19/20 21:00 Olanzapine 2.5 Mg Tablet PO BEDTIME ERIN Olanzapine 2.5 mg 08/19/20 17:26 Olanzapine 2.5 Mg Tablet PO BID PRN anxiety/restlessness Propranolol HCl 20 mg 08/15/20 21:00 08/19/20 09:40 Propranolol Hcl 20 Mg Tablet PO 20 mg BID ERIN Administration Protocol Sodium Biphosphate/Sodium Phosphate 133 ml 08/17/20 18:31 Sodium Phosphate,Hardin-Dibasic 133 Ml Enema DE DAILY PRN Constipation Topiramate 50 mg 08/19/20 21:00 Topiramate 25 Mg Tablet PO BEDTIME ERIN Trolamine Salicylate 1 appl 08/19/20 13:52 08/19/20 16:17 Trolamine Salicylate 10 % Cream 85 Gm Tube TOPICAL 1 appl QID PRN Administration Pain, Moderate (Pain Scale 4-6 Protocol Allergies Allergies Allergy/AdvReac Type Severity Reaction Status Date / Time Iodinated Contrast Media Allergy Intermediate Hives Verified 08/15/20 12:27 Assessment & Plan Assessment & Plan (1) Severe anxiety: Status: Acute Code(s): F41.9 - Anxiety disorder, unspecified (2) Suicidal ideation: Status: Acute Code(s): R45.851 - Suicidal ideations (3) Major depressive disorder, recurrent severe without psychotic features: Status: Acute Code(s): F33.2 - Major depressive disorder, recurrent severe without psychotic features Assessment and Plan: all placed to Dr. Hannah Fuentes to this point no return call trying to coordinate care regarding medication and ECT. Had extensive discussion with patient's this morning patient had been referred for ECT discussed how TMS was not an option given patient's instability and recent suicidality. Stop Geoantoni try low-dose Zyprexa for agitated depression med consultation reviewed head CT scan unremarkable no significant contraindications to ECT. EKG incomplete right bundle branch block Greater than 50% of the session was spent on counseling and/or coordination of care Patient educated on: diagnosis, medication risk/benefits and ECT Guardian/Caregiver educated on: medication risk/benefits and ECT Informed Consent: further education needed Reason for contiued inpatient stay Substantial Risk for: harm to self
[2020-08-19] MEDS: Mirtazapine 30 MG TABLET PO (21:50)
[2020-08-19] MEDS: clonazePAM 1 MG TABLET 3 MG PO (21:51)
[2020-08-19] MEDS: Atorvastatin Calcium 20 MG TABLET PO (21:51)
[2020-08-19] MEDS: Escitalopram Oxalate 5 MG TABLET PO (21:51)
[2020-08-19] MEDS: OLANZapine 2.5 MG TABLET PO (21:52)
[2020-08-19] MEDS: hydrOXYzine HCL 50 MG TABLET PO (21:52)
[2020-08-19] MEDS: Topiramate 25 MG TABLET 50 MG PO (21:52)
[2020-08-19 21:53] VITALS: BP 134/71; PULSE 80
[2020-08-20] MEDS: hydrOXYzine HCL 25 MG TABLET PO ×3 (00:17→14:35)
[2020-08-20 06:22] VITALS: BP 105/56; PULSE 89; RESP 16; TEMP 35.7; O2SAT 98
[2020-08-20 08:48] VITALS: BP 105/56; PULSE 89
[2020-08-20] MEDS: Propranolol HCL 20 MG TABLET PO ×2 (08:48→21:38)
[2020-08-20] MEDS: Levothyroxine Sodium 88 MCG TABLET PO (08:48)
[2020-08-20] MEDS: Trolamine Salicylate 10 % Cream 85 GM TUBE 1 APPL TOPICAL (09:33)
--- NOTE | 2020-08-20 10:42 | P.PNPSI_ITS ---
Subjective Subjective Reason For Visit: Depression Subjective Notes: Conditional Voluntary Interim History: Patient severely depressed anxious worried about electric bill therapy or at having electric for therapy. Has symptomatic preoccupation worries about insomnia given psychoeducation about ECT a at other option Medication Compliance: Yes Side effects from medications: No Attending Groups: No Mental Status Exam Mental Status Exam Narrative: withdrawn or giated when engaged Patient Appearance: Disheveled and Appropriate Patient Orientation: Person, Place, Time and Situation Level of Consciousness: Awake and Appropriate Patient Behavior: Passive, Restless and Anxious Mood Description: Constricted, Depressed, Anxious, Sad, Nervous and Apprehensive Affect Description: Depressed Patient Cognition Impaired: No Ability to Follow Directions: Poor Speech Pattern: Clear Thought Process: Rumination Thought Content: positive for Obsessional Thoughts and positive for Perseveration Depressive Symptoms: Diff. Making Decisions, Crying Spells and Significant Weight Loss Judgement: Fair Diagnostics Vital Signs (24Hr): Vital Signs - 24 hr 08/19/20 18:00 08/19/20 21:53 08/20/20 06:22 Temperature 97.6 F 96.3 F L Pulse Rate 80 80 89 Respiratory Rate 16 Blood Pressure 134/71 134/71 105/56 L Pulse Oximetry 98 08/20/20 08:48 Temperature Pulse Rate 89 Respiratory Rate Blood Pressure 105/56 L Pulse Oximetry Body Mass Index 38.3 Labs Results: 08/15/20 15:38 08/19/20 07:49 Labs: Laboratory Results - last 48 hr 08/19/20 08/19/20 07:49 07:49 Sodium 138 Potassium 4.2 Chloride 103 Carbon Dioxide 27 Anion Gap 12 BUN 12 Creatinine 0.92 Estim Creat Clear Calc 66.8 Estimated GFR > 60 Fasting Glucose 112 H Calcium 9.4 Total Bilirubin 0.5 AST 26 D ALT 18 Alkaline Phosphatase 99 Total Protein 6.7 Albumin 4.1 Triglycerides 119 Cholesterol 151 LDL Cholesterol, Calc 76 HDL Cholesterol 52 Vitamin B12 364 Folate 12.4 TSH 1.07 Imaging Radiology Impressions: ITS Impressions Head CT 08/19/20 00:00 IMPRESSION: No acute intracranial abnormality. Medications Medications Current Medications Generic Name Dose Route Start Last Admin Trade Name Freq PRN Reason Stop Dose Admin Atorvastatin Calcium 20 mg 08/16/20 21:00 08/19/20 21:51 Atorvastatin Calcium 20 Mg Tablet PO 20 mg BEDTIME ERIN Administration Clonazepam 3 mg 08/15/20 23:15 08/19/20 21:51 Clonazepam 1 Mg Tablet PO 3 mg BEDTIME ERIN Administration Escitalopram Oxalate 5 mg 08/15/20 23:15 08/19/20 21:51 Escitalopram Oxalate 5 Mg Tablet PO 5 mg BEDTIME ERIN Administration Hydroxyzine HCl 50 mg 08/15/20 23:15 08/19/20 21:52 Hydroxyzine Hcl 50 Mg Tablet PO 50 mg BEDTIME ERIN Administration Hydroxyzine HCl 25 mg 08/16/20 16:10 08/20/20 08:49 Hydroxyzine Hcl 25 Mg Tablet PO 25 mg Q6H PRN Administration Anxiety Ibuprofen 600 mg 08/19/20 20:12 Ibuprofen 600 Mg Tablet PO Q8H PRN Pain, Moderate (Pain Scale 4-6 Levothyroxine Sodium 88 mcg 08/16/20 09:00 08/20/20 08:48 Levothyroxine Sodium 88 Mcg Tablet PO 88 mcg DAILY ERIN Administration Magnesium Citrate 150 ml 08/17/20 18:31 08/17/20 22:53 Magnesium Citrate 300 Ml Solution PO 150 ml BID PRN Administration Constipation Mirtazapine 30 mg 08/15/20 21:00 08/19/20 21:50 Mirtazapine 30 Mg Tablet PO 30 mg BEDTIME ERIN Administration Nitroglycerin 0.4 mg 08/15/20 18:42 Nitroglycerin 0.4 Mg Tab.Subl SUBLINGUAL Q5M PRN Chest Pain Olanzapine 2.5 mg 08/19/20 21:00 08/19/20 21:52 Olanzapine 2.5 Mg Tablet PO 2.5 mg BEDTIME ERIN Administration Olanzapine 2.5 mg 08/19/20 17:26 Olanzapine 2.5 Mg Tablet PO BID PRN anxiety/restlessness Olanzapine 2.5 mg 08/20/20 10:26 Olanzapine 2.5 Mg Tablet PO 08/20/20 10:27 ONCE ONE Propranolol HCl 20 mg 08/15/20 21:00 08/20/20 08:48 Propranolol Hcl 20 Mg Tablet PO 20 mg BID ERIN Administration Protocol Sodium Biphosphate/Sodium Phosphate 133 ml 08/17/20 18:31 Sodium Phosphate,[place]-Dibasic 133 Ml Enema [place] DAILY PRN Constipation Topiramate 50 mg 08/19/20 21:00 08/19/20 21:52 Topiramate 25 Mg Tablet PO 50 mg BEDTIME ERIN Administration Trolamine Salicylate 1 appl 08/19/20 13:52 08/20/20 09:33 Trolamine Salicylate 10 % Cream 85 Gm Tube TOPICAL 1 appl QID PRN Administration Pain, Moderate (Pain Scale 4-6 Protocol Allergies Allergies Allergy/AdvReac Type Severity Reaction Status Date / Time Iodinated Contrast Media Allergy Intermediate Hives Verified 08/15/20 12:27 Assessment & Plan Assessment & Plan (1) Severe anxiety: Status: Acute Code(s): F41.9 - Anxiety disorder, unspecified (2) Major depressive disorder, recurrent severe without psychotic features: Status: Acute Code(s): F33.2 - Major depressive disorder, recurrent severe without psychotic features Assessment and Plan: head CT scan med consult reviewed EKG right bundle-branch block incomplete patient felt medically stable for ECT Zyprexa added for anxiety obsessional thinking Greater than 50% of the session was spent on counseling and/or coordination of care
[2020-08-20] MEDS: OLANZapine 2.5 MG TABLET PO (10:53)
[2020-08-20 18:00] VITALS: BP 151/79; PULSE 90; TEMP 36.3
[2020-08-20] MEDS: clonazePAM 1 MG TABLET 3 MG PO (21:35)
[2020-08-20] MEDS: OLANZapine 2.5 MG TABLET 5 MG PO (21:36)
[2020-08-20] MEDS: hydrOXYzine HCL 50 MG TABLET PO (21:36)
[2020-08-20] MEDS: Escitalopram Oxalate 5 MG TABLET PO (21:37)
[2020-08-20] MEDS: Atorvastatin Calcium 20 MG TABLET PO (21:37)
[2020-08-20] MEDS: Mirtazapine 30 MG TABLET PO (21:37)
[2020-08-20 21:38] VITALS: BP 151/79; PULSE 90
[2020-08-20] MEDS: Topiramate 25 MG TABLET 50 MG PO (21:38)
[2020-08-21] MEDS: hydrOXYzine HCL 25 MG TABLET PO ×2 (00:51→09:27)
[2020-08-21] MEDS: OLANZapine 2.5 MG TABLET PO (00:51)
[2020-08-21 06:35] VITALS: BP 118/74; PULSE 79; RESP 16; TEMP 36.1
[2020-08-21] MEDS: Propranolol HCL 20 MG TABLET PO ×2 (09:24→22:24)
[2020-08-21] MEDS: Levothyroxine Sodium 88 MCG TABLET PO (09:24)
--- NOTE | 2020-08-21 10:53 | P.PNPSI_ITS ---
Subjective Subjective Date of Service: 08/21/20 Reason For Visit: Depression Subjective Notes: Conditional Voluntary Interim History: Pt anxious and depressed, fearful about ECT and perseverating about what would help her best but can't make decision around it mostly isolating to her room Medication Compliance: Yes Side effects from medications: No Attending Groups: Intermittent Review of Systems Constitutional: Reports fatigue, Reports lethargy and Reports malaise Endocrine: Reports fatigue Mental Status Exam Mental Status Exam Narrative: lying in bed, looking sad and anxious Patient Appearance: Fatigued and Appropriate Patient Orientation: Person, Place, Time and Situation Level of Consciousness: Awake and Appropriate Patient Behavior: Dependent, Passive and Anxious Mood Description: Constricted and Depressed Affect Description: Withdrawn Patient Cognition Impaired: No Ability to Follow Directions: Fair Speech Pattern: Clear and Soft-Spoken Hallucinations: None Thought Process: Intact, Goal Oriented and Slowed Thinking Thought Content: positive for Goal Oriented, positive for Perseveration (ambivalent) and positive for Poverty of Content Depressive Symptoms: Diff. Making Decisions, Difficulty Sleeping, Loss of Int. in Activity, Hopelessness, Unhappiness and Difficulty Concentrating Judgement: Fair Diagnostics Vital Signs (24Hr): Vital Signs - 24 hr 08/20/20 18:00 08/20/20 21:38 08/21/20 06:35 Temperature 97.4 F 96.9 F Pulse Rate 90 90 79 Respiratory Rate 16 Blood Pressure 151/79 H 151/79 H 118/74 Body Mass Index 38.3 Labs Results: 08/15/20 15:38 08/19/20 07:49 Imaging Radiology Impressions: ITS Impressions Head CT 08/19/20 00:00 IMPRESSION: No acute intracranial abnormality. Medications Medications Current Medications Generic Name Dose Route Start Last Admin Trade Name Freq PRN Reason Stop Dose Admin Atorvastatin Calcium 20 mg 08/16/20 21:00 08/20/20 21:37 Atorvastatin Calcium 20 Mg Tablet PO 20 mg BEDTIME ERIN Administration Clonazepam 3 mg 08/15/20 23:15 08/20/20 21:35 Clonazepam 1 Mg Tablet PO 3 mg BEDTIME ERIN Administration Escitalopram Oxalate 5 mg 08/15/20 23:15 08/20/20 21:37 Escitalopram Oxalate 5 Mg Tablet PO 5 mg BEDTIME ERIN Administration Hydroxyzine HCl 50 mg 08/15/20 23:15 08/20/20 21:36 Hydroxyzine Hcl 50 Mg Tablet PO 50 mg BEDTIME ERIN Administration Hydroxyzine HCl 25 mg 08/16/20 16:10 08/21/20 09:27 Hydroxyzine Hcl 25 Mg Tablet PO 25 mg Q6H PRN Administration Anxiety Ibuprofen 600 mg 08/19/20 20:12 Ibuprofen 600 Mg Tablet PO Q8H PRN Pain, Moderate (Pain Scale 4-6 Levothyroxine Sodium 88 mcg 08/16/20 09:00 08/21/20 09:24 Levothyroxine Sodium 88 Mcg Tablet PO 88 mcg DAILY ERIN Administration Magnesium Citrate 150 ml 08/17/20 18:31 08/17/20 22:53 Magnesium Citrate 300 Ml Solution PO 150 ml BID PRN Administration Constipation Mirtazapine 30 mg 08/15/20 21:00 08/20/20 21:37 Mirtazapine 30 Mg Tablet PO 30 mg BEDTIME ERIN Administration Nitroglycerin 0.4 mg 08/15/20 18:42 Nitroglycerin 0.4 Mg Tab.Subl SUBLINGUAL Q5M PRN Chest Pain Olanzapine 2.5 mg 08/19/20 17:26 08/21/20 00:51 Olanzapine 2.5 Mg Tablet PO 2.5 mg BID PRN Administration anxiety/restlessness Olanzapine 5 mg 08/20/20 21:00 08/20/20 21:36 Olanzapine 2.5 Mg Tablet PO 5 mg BEDTIME ERIN Administration Propranolol HCl 20 mg 08/15/20 21:00 08/21/20 09:24 Propranolol Hcl 20 Mg Tablet PO 20 mg BID ERIN Administration Protocol Sodium Biphosphate/Sodium Phosphate 133 ml 08/17/20 18:31 Sodium Phosphate,[place]-Dibasic 133 Ml Enema [place] DAILY PRN Constipation Topiramate 50 mg 08/19/20 21:00 08/20/20 21:38 Topiramate 25 Mg Tablet PO 50 mg BEDTIME ERIN Administration Trolamine Salicylate 1 appl 08/19/20 13:52 08/20/20 09:33 Trolamine Salicylate 10 % Cream 85 Gm Tube TOPICAL 1 appl QID PRN Administration Pain, Moderate (Pain Scale 4-6 Protocol Allergies Allergies Allergy/AdvReac Type Severity Reaction Status Date / Time Iodinated Contrast Media Allergy Intermediate Hives Verified 08/15/20 12:27 Assessment & Plan Assessment & Plan (1) Major depressive disorder, recurrent severe without psychotic features: Status: Acute Code(s): F33.2 - Major depressive disorder, recurrent severe without psychotic features Assessment and Plan: discussed medication and trial of ECT Greater than 50% of the session was spent on counseling and/or coordination of care
[2020-08-21] MEDS: clonazePAM 1 MG TABLET 3 MG PO (22:16)
[2020-08-21] MEDS: Atorvastatin Calcium 20 MG TABLET PO (22:16)
[2020-08-21] MEDS: Escitalopram Oxalate 5 MG TABLET PO (22:16)
[2020-08-21] MEDS: Topiramate 25 MG TABLET 50 MG PO (22:17)
[2020-08-21] MEDS: hydrOXYzine HCL 50 MG TABLET PO (22:17)
[2020-08-21] MEDS: Mirtazapine 30 MG TABLET PO (22:17)
[2020-08-21] MEDS: OLANZapine 5 MG TABLET PO (22:20)
[2020-08-21 22:24] VITALS: BP 136/68; PULSE 60
[2020-08-21 22:28] VITALS: TEMP 36.1
[2020-08-22] MEDS: Ibuprofen 600 MG TABLET PO (01:05)
[2020-08-22] MEDS: hydrOXYzine HCL 25 MG TABLET PO ×2 (01:05→09:00)
[2020-08-22 06:00] VITALS: BP 135/70; PULSE 80; RESP 18; TEMP 36.6; O2SAT 98
[2020-08-22] MEDS: Propranolol HCL 20 MG TABLET PO ×2 (09:00→22:14)
[2020-08-22] MEDS: Levothyroxine Sodium 88 MCG TABLET PO (09:01)
[2020-08-22] MEDS: OLANZapine 2.5 MG TABLET PO (13:13)
--- NOTE | 2020-08-22 15:00 | HO.PSYCHPN ---
Subjective Subjective Date of Service: 08/22/20 Reason For Visit: Depression Subjective Notes: Conditional Voluntary Interim History: continues agitated and ambivalent, anxious and depressed can't make decision about treatment Medication Compliance: Yes Side effects from medications: No Attending Groups: Intermittent Review of Systems Acute medical concerns: No Review of Systems Review of Systems Yes all other systems are reviewed and are negative Mental Status Exam Mental Status Exam Narrative: withdrawn or giated when engaged Patient Appearance: Fatigued and Appropriate Patient Orientation: Person, Place, Time and Situation Level of Consciousness: Awake and Appropriate Patient Behavior: Passive, Restless and Anxious Mood Description: Anxious Affect Description: Depressed Patient Cognition Impaired: No Ability to Follow Directions: Poor Speech Pattern: Clear Thought Process: Rumination Thought Content: positive for Obsessional Thoughts and positive for Perseveration Depressive Symptoms: Diff. Making Decisions Judgement: Fair Diagnostics Vital Signs (24Hr): Vital Signs - 24 hr 08/21/20 22:24 08/21/20 22:28 08/22/20 06:00 Temperature 97.0 F 97.9 F Pulse Rate 60 80 Respiratory Rate 18 Blood Pressure 136/68 135/70 Pulse Oximetry 98 Body Mass Index 38.3 Labs Results: 08/15/20 15:38 08/19/20 07:49 Imaging Radiology Impressions: ITS Impressions Head CT 08/19/20 00:00 IMPRESSION: No acute intracranial abnormality. Medications Medications Current Medications Generic Name Dose Route Start Last Admin Trade Name Freq PRN Reason Stop Dose Admin Atorvastatin Calcium 20 mg 08/16/20 21:00 08/21/20 22:16 Atorvastatin Calcium 20 Mg Tablet PO 20 mg BEDTIME ERIN Administration Clonazepam 3 mg 08/15/20 23:15 08/21/20 22:16 Clonazepam 1 Mg Tablet PO 3 mg BEDTIME ERIN Administration Escitalopram Oxalate 5 mg 08/15/20 23:15 08/21/20 22:16 Escitalopram Oxalate 5 Mg Tablet PO 5 mg BEDTIME ERIN Administration Hydroxyzine HCl 50 mg 08/15/20 23:15 08/21/20 22:17 Hydroxyzine Hcl 50 Mg Tablet PO 50 mg BEDTIME ERIN Administration Hydroxyzine HCl 25 mg 08/16/20 16:10 08/22/20 09:00 Hydroxyzine Hcl 25 Mg Tablet PO 25 mg Q6H PRN Administration Anxiety Ibuprofen 600 mg 08/19/20 20:12 08/22/20 01:05 EDT Ibuprofen 600 Mg Tablet PO 600 mg Q8H PRN Administration Pain, Moderate (Pain Scale 4-6 Levothyroxine Sodium 88 mcg 08/16/20 09:00 08/22/20 09:01 Levothyroxine Sodium 88 Mcg Tablet PO 88 mcg DAILY ERIN Administration Magnesium Citrate 150 ml 08/17/20 18:31 08/17/20 22:53 Magnesium Citrate 300 Ml Solution PO 150 ml BID PRN Administration Constipation Mirtazapine 30 mg 08/15/20 21:00 08/21/20 22:17 Mirtazapine 30 Mg Tablet PO 30 mg BEDTIME ERIN Administration Nitroglycerin 0.4 mg 08/15/20 18:42 Nitroglycerin 0.4 Mg Tab.Subl SUBLINGUAL Q5M PRN Chest Pain Olanzapine 2.5 mg 08/19/20 17:26 08/21/20 00:51 Olanzapine 2.5 Mg Tablet PO 2.5 mg BID PRN Administration anxiety/restlessness Olanzapine 5 mg 08/22/20 21:00 08/21/20 22:20 Olanzapine 5 Mg Tablet PO 5 mg BEDTIME ERIN Administration Olanzapine 2.5 mg 08/22/20 11:50 08/22/20 13:13 Olanzapine 2.5 Mg Tablet PO 2.5 mg DAILY ERIN Administration Propranolol HCl 20 mg 08/15/20 21:00 08/22/20 09:00 Propranolol Hcl 20 Mg Tablet PO 20 mg BID ERIN Administration Protocol Sodium Biphosphate/Sodium Phosphate 133 ml 08/17/20 18:31 Sodium Phosphate,[place]-Dibasic 133 Ml Enema [place] DAILY PRN Constipation Topiramate 50 mg 08/19/20 21:00 08/21/20 22:17 Topiramate 25 Mg Tablet PO 50 mg BEDTIME ERIN Administration Trolamine Salicylate 1 appl 08/19/20 13:52 08/20/20 09:33 Trolamine Salicylate 10 % Cream 85 Gm Tube TOPICAL 1 appl QID PRN Administration Pain, Moderate (Pain Scale 4-6 Protocol Allergies Allergies Allergy/AdvReac Type Severity Reaction Status Date / Time Iodinated Contrast Media Allergy Intermediate Hives Verified 08/15/20 12:27 Assessment & Plan Assessment & Plan (1) Major depressive disorder, recurrent severe without psychotic features: Status: Acute Code(s): F33.2 - Major depressive disorder, recurrent severe without psychotic features Assessment and Plan: discussed advising ECt (2) Severe anxiety: Status: Acute Code(s): F41.9 - Anxiety disorder, unspecified Assessment and Plan: add low dose olanzapine in am , vistaril not bring much relief to agita in am Greater than 50% of the session was spent on counseling and/or coordination of care
[2020-08-22] MEDS: hydrOXYzine HCL 50 MG TABLET PO (22:11)
[2020-08-22] MEDS: OLANZapine 5 MG TABLET PO (22:13)
[2020-08-22] MEDS: Atorvastatin Calcium 20 MG TABLET PO (22:13)
[2020-08-22] MEDS: Mirtazapine 30 MG TABLET PO (22:13)
[2020-08-22] MEDS: Escitalopram Oxalate 5 MG TABLET PO (22:13)
[2020-08-22 22:14] VITALS: BP 177/94; PULSE 102
[2020-08-23] VITALS (14 sets, daily range): BP systolic 113–156; BP diastolic 51–92; PULSE 73–92; RESP 16–18; TEMP 36.1–36.4; O2SAT 93–96
--- NOTE | 2020-08-23 07:35 | MHC.SHP ---
Pre-Procedural Eval Section A The patient is an INPATIENT: Yes Changes since office visit: Yes Changes in Medication and Yes Patient answered all questions; No Cold of Flu in the past 2 weeks and No New Medical Problems The History & Physical has been completed within 30 days and I have reviewed it.: Yes Section B Chief Complaint: Depression Allergies: Allergies Allergy/AdvReac Type Severity Reaction Status Date / Time Iodinated Contrast Media Allergy Intermediate Hives Verified 08/15/20 12:27 Plan Patient has been examined and remains a candidate for the planned procedure
--- NOTE | 2020-08-23 07:35 | HO.ECTPROC ---
ECT Procedure Note Diagnosis/Treatment Diagnosis: Major Depressive Disorder Current Treatment Number: 1 Treatment: Series Interval Clinical Notes: pt with severe anxiety and depression ECT Settings Device: THYMATRON DGx Electrode Placement: Right Unilateral Program/Pulse Width: 0.50 Energy Percent: 100 Seizure Duration By EEG (in seconds): 21 Medications Administration General Anesthetic: Propofol (60 for flumaz effect 140 mg for procedure ) Muscle Relaxant: Succinylcholine (80) Ancillary Medications Analgesics: Torodol - Pre ECT (15) Anti-emetics: Zofran - Pre ECT (4) Miscillaneous Medications: Flumazenil (0.5) Airway Management Airway Management: Bag Mask Ventilation Treatment Recommendations Electrode Placement: Right Unilateral Program/Pulse Width: 0.50 Energy Percent: 100 Notes: change to etomidate give .25 flumazenil just before giving etom Had anxiety with flumazenil Pt Tolerated Procedure w/o Issue: Yes
[2020-08-23] MEDS: clonazePAM 0.5 MG TABLET PO (08:35)
[2020-08-23] MEDS: OLANZapine 2.5 MG TABLET PO ×3 (08:39→22:22)
--- NOTE | 2020-08-23 09:09 | HO.POSTANES ---
Post Anesthesia Evaluation Post Anesthesia Evaluation Vital Signs: Vital Signs Temp Pulse Resp BP Pulse Ox 08/23/20 08:55 97.2 F 73 16 152/89 H 94 08/23/20 08:40 80 16 135/82 93 08/23/20 08:25 82 16 135/75 93 08/23/20 08:20 82 16 141/70 H 95 08/23/20 08:15 78 16 129/65 95 08/23/20 08:10 97.6 F 75 18 113/51 L 95 08/23/20 06:54 96.9 F 77 16 145/88 H 94 08/23/20 05:48 97.2 F 87 16 121/69 96 08/23/20 05:35 97.2 F 87 16 121/69 96 08/23/20 00:01 97.5 F 75 16 128/62 08/22/20 22:14 102 H 177/94 H Anesthesia: General Mental Status: Awake Pain Control: Satisfactory Nausea/Vomiting: None Hydration: Adequate Anesthesia-Related Issues: No Anes. Related Issues
[2020-08-23] MEDS: Levothyroxine Sodium 88 MCG TABLET PO (10:11)
[2020-08-23] MEDS: Propranolol HCL 20 MG TABLET PO ×2 (10:11→22:21)
[2020-08-23] MEDS: clonazePAM 1 MG TABLET 3 MG PO (22:22)
[2020-08-23] MEDS: Atorvastatin Calcium 20 MG TABLET PO (22:22)
[2020-08-23] MEDS: Mirtazapine 30 MG TABLET PO (22:23)
[2020-08-23] MEDS: hydrOXYzine HCL 50 MG TABLET PO (22:23)
--- NOTE | 2020-08-23 23:22 | HO.PSYCHPN ---
Subjective Subjective Reason For Visit: Depression Interim History: see ECT note patient did have anxiety reaction when given flumazenil. Patient ask for help but fearful of almost all options. Severe anxiety Mental Status Exam Mental Status Exam Narrative: withdrawn or giated when engaged Patient Appearance: Appropriate Patient Orientation: Person, Place, Time and Situation Level of Consciousness: Awake and Appropriate Patient Behavior: Passive, Restless and Anxious Mood Description: Constricted, Depressed, Anxious, Sad, Nervous and Apprehensive Affect Description: Depressed Patient Cognition Impaired: No Ability to Follow Directions: Poor Speech Pattern: Clear Diagnostics Vital Signs (24Hr): Vital Signs - 24 hr 08/23/20 00:01 08/23/20 05:35 08/23/20 05:48 Temperature 97.5 F 97.2 F 97.2 F Pulse Rate 75 87 87 Respiratory Rate 16 16 16 Blood Pressure 128/62 121/69 121/69 Pulse Oximetry 96 96 08/23/20 06:54 08/23/20 08:10 08/23/20 08:15 Temperature 96.9 F 97.6 F Pulse Rate 77 75 78 Respiratory Rate 16 18 16 Blood Pressure 145/88 H 113/51 L 129/65 Pulse Oximetry 94 95 95 08/23/20 08:20 08/23/20 08:25 08/23/20 08:40 Temperature Pulse Rate 82 82 80 Respiratory Rate 16 16 16 Blood Pressure 141/70 H 135/75 135/82 Pulse Oximetry 95 93 93 08/23/20 08:55 08/23/20 10:00 08/23/20 10:11 Temperature 97.2 F 97.6 F Pulse Rate 73 75 75 Respiratory Rate 16 Blood Pressure 152/89 H 140/92 H 140/92 H Pulse Oximetry 94 93 08/23/20 22:21 Temperature Pulse Rate 92 Respiratory Rate Blood Pressure 156/75 H Pulse Oximetry Body Mass Index 38.3 Labs Results: 08/15/20 15:38 08/19/20 07:49 Imaging Radiology Impressions: ITS Impressions Head CT 08/19/20 00:00 IMPRESSION: No acute intracranial abnormality. Medications Medications Current Medications Generic Name Dose Route Start Last Admin Trade Name Freq PRN Reason Stop Dose Admin Atorvastatin Calcium 20 mg 08/16/20 21:00 08/23/20 22:22 Atorvastatin Calcium 20 Mg Tablet PO 20 mg BEDTIME ERIN Administration Clonazepam 3 mg 08/15/20 23:15 08/23/20 22:22 Clonazepam 1 Mg Tablet PO 3 mg BEDTIME ERIN Administration Hydroxyzine HCl 50 mg 08/15/20 23:15 08/23/20 22:23 Hydroxyzine Hcl 50 Mg Tablet PO 50 mg BEDTIME ERIN Administration Hydroxyzine HCl 25 mg 08/16/20 16:10 08/22/20 09:00 Hydroxyzine Hcl 25 Mg Tablet PO 25 mg Q6H PRN Administration Anxiety Ibuprofen 600 mg 08/19/20 20:12 08/22/20 01:05 EDT Ibuprofen 600 Mg Tablet PO 600 mg Q8H PRN Administration Pain, Moderate (Pain Scale 4-6 Levothyroxine Sodium 88 mcg 08/16/20 09:00 08/23/20 10:11 Levothyroxine Sodium 88 Mcg Tablet PO 88 mcg DAILY ERIN Administration Magnesium Citrate 150 ml 08/17/20 18:31 08/17/20 22:53 Magnesium Citrate 300 Ml Solution PO 150 ml BID PRN Administration Constipation Mirtazapine 30 mg 08/15/20 21:00 08/23/20 22:23 Mirtazapine 30 Mg Tablet PO 30 mg BEDTIME ERNI Administration Nitroglycerin 0.4 mg 08/15/20 18:42 Nitroglycerin 0.4 Mg Tab.Subl SUBLINGUAL Q5M PRN Chest Pain Olanzapine 2.5 mg 08/19/20 17:26 08/21/20 00:51 Olanzapine 2.5 Mg Tablet PO 2.5 mg BID PRN Administration anxiety/restlessness Olanzapine 2.5 mg 08/22/20 11:50 08/23/20 10:11 Olanzapine 2.5 Mg Tablet PO 2.5 mg DAILY ERIN Administration Olanzapine 7.5 mg 08/24/20 21:00 Olanzapine 5 Mg Tablet PO BEDTIME ERIN Propranolol HCl 20 mg 08/15/20 21:00 08/23/20 22:21 Propranolol Hcl 20 Mg Tablet PO 20 mg BID ERIN Administration Protocol Sodium Biphosphate/Sodium Phosphate 133 ml 08/17/20 18:31 Sodium Phosphate,[place]-Dibasic 133 Ml Enema [place] DAILY PRN Constipation Trolamine Salicylate 1 appl 08/19/20 13:52 08/20/20 09:33 Trolamine Salicylate 10 % Cream 85 Gm Tube TOPICAL 1 appl QID PRN Administration Pain, Moderate (Pain Scale 4-6 Protocol Allergies Allergies Allergy/AdvReac Type Severity Reaction Status Date / Time Iodinated Contrast Media Allergy Intermediate Hives Verified 08/15/20 12:27 Assessment & Plan Assessment & Plan (1) Severe anxiety: Status: Acute Code(s): F41.9 - Anxiety disorder, unspecified (2) Major depressive disorder, recurrent severe without psychotic features: Status: Acute Code(s): F33.2 - Major depressive disorder, recurrent severe without psychotic features Assessment and Plan: see ECT note Zyprexa added for anxiety obsessional thinking needs much reassurance and support case reviewed also with patient's reviewed results of 1st ECT Greater than 50% of the session was spent on counseling and/or coordination of care Patient educated on: diagnosis, medication risk/benefits, ECT and therapeutic strategies Informed Consent: further education needed Reason for contiued inpatient stay Substantial Risk for: harm to self
[2020-08-24 06:15] VITALS: BP 103/64; PULSE 68; RESP 16; TEMP 36.6
[2020-08-24] MEDS: Levothyroxine Sodium 88 MCG TABLET PO (09:26)
[2020-08-24] MEDS: OLANZapine 2.5 MG TABLET PO (09:26)
[2020-08-24 09:28] VITALS: BP 103/64; PULSE 68
[2020-08-24] MEDS: Propranolol HCL 20 MG TABLET PO ×2 (09:28→21:45)
[2020-08-24] MEDS: Benztropine Mesylate 1 MG TABLET PO (11:55)
[2020-08-24 18:00] VITALS: BP 117/56; PULSE 66; TEMP 36.2
--- NOTE | 2020-08-24 20:16 | P.PNPSI_ITS ---
Subjective Subjective Reason For Visit: Depression Interim History: patient anxious and ruminating rule depressed fearful of any medication change did tolerate eventually 1st ECT had difficulty with flumazenil reviewed with patient difficulty doing ECT on clonazepam Mental Status Exam Mental Status Exam Narrative: denies active self-harm in this setting Patient Appearance: Appropriate Patient Orientation: Person, Place, Time and Situation Level of Consciousness: Awake and Appropriate Patient Behavior: Passive, Restless and Anxious Mood Description: Constricted, Depressed, Anxious, Sad, Nervous and Apprehensive Affect Description: Depressed Patient Cognition Impaired: No Ability to Follow Directions: Poor Speech Pattern: Clear Hallucinations: None Thought Process: Rumination Thought Content: positive for Obsessional Thoughts, positive for Circumstantial, positive for Preoccupation and positive for Hypochondriasis Depressive Symptoms: Increased Anxiety, Insomnia, Diff. Making Decisions, Increased Irritability and Thoughts of /Suicide Judgement: Fair Diagnostics Vital Signs (24Hr): Vital Signs - 24 hr 08/23/20 22:21 08/24/20 06:15 08/24/20 09:28 Temperature 97.8 F Pulse Rate 92 68 68 Respiratory Rate 16 Blood Pressure 156/75 H 103/64 103/64 08/24/20 18:00 Temperature 97.1 F Pulse Rate 66 Respiratory Rate Blood Pressure 117/56 L Body Mass Index 38.3 Labs Results: 08/15/20 15:38 08/19/20 07:49 Imaging Radiology Impressions: ITS Impressions Head CT 08/19/20 00:00 IMPRESSION: No acute intracranial abnormality. Medications Medications Current Medications Generic Name Dose Route Start Last Admin Trade Name Freq PRN Reason Stop Dose Admin Atorvastatin Calcium 20 mg 08/16/20 21:00 08/23/20 22:22 Atorvastatin Calcium 20 Mg Tablet PO 20 mg BEDTIME ERIN Administration Hydroxyzine HCl 50 mg 08/15/20 23:15 08/23/20 22:23 Hydroxyzine Hcl 50 Mg Tablet PO 50 mg BEDTIME ERIN Administration Hydroxyzine HCl 25 mg 08/16/20 16:10 08/22/20 09:00 Hydroxyzine Hcl 25 Mg Tablet PO 25 mg Q6H PRN Administration Anxiety Ibuprofen 600 mg 08/19/20 20:12 08/22/20 01:05 EDT Ibuprofen 600 Mg Tablet PO 600 mg Q8H PRN Administration Pain, Moderate (Pain Scale 4-6 Levothyroxine Sodium 88 mcg 08/16/20 09:00 08/24/20 09:26 Levothyroxine Sodium 88 Mcg Tablet PO 88 mcg DAILY ERIN Administration Magnesium Citrate 150 ml 08/17/20 18:31 08/17/20 22:53 Magnesium Citrate 300 Ml Solution PO 150 ml BID PRN Administration Constipation Mirtazapine 30 mg 08/15/20 21:00 08/23/20 22:23 Mirtazapine 30 Mg Tablet PO 30 mg BEDTIME ERIN Administration Nitroglycerin 0.4 mg 08/15/20 18:42 Nitroglycerin 0.4 Mg Tab.Subl SUBLINGUAL Q5M PRN Chest Pain Olanzapine 2.5 mg 08/19/20 17:26 08/21/20 00:51 Olanzapine 2.5 Mg Tablet PO 2.5 mg BID PRN Administration anxiety/restlessness Olanzapine 7.5 mg 08/24/20 21:00 Olanzapine 5 Mg Tablet PO BEDTIME ERIN Olanzapine 2.5 mg 08/25/20 06:00 Olanzapine 2.5 Mg Tablet PO DAILY@0600 ERIN Propranolol HCl 20 mg 08/15/20 21:00 08/24/20 09:28 Propranolol Hcl 20 Mg Tablet PO 20 mg BID ERIN Administration Protocol Sodium Biphosphate/Sodium Phosphate 133 ml 08/17/20 18:31 Sodium Phosphate,[place]-Dibasic 133 Ml Enema [place] DAILY PRN Constipation Trolamine Salicylate 1 appl 08/19/20 13:52 08/20/20 09:33 Trolamine Salicylate 10 % Cream 85 Gm Tube TOPICAL 1 appl QID PRN Administration Pain, Moderate (Pain Scale 4-6 Protocol Allergies Allergies Allergy/AdvReac Type Severity Reaction Status Date / Time Iodinated Contrast Media Allergy Intermediate Hives Verified 08/15/20 12:27 Assessment & Plan Assessment & Plan (1) Severe anxiety: Status: Acute Code(s): F41.9 - Anxiety disorder, unspecified (2) Major depressive disorder, recurrent severe without psychotic features: Status: Acute Code(s): F33.2 - Major depressive disorder, recurrent severe without psychotic features Assessment and Plan: see ECT note Zyprexa added for anxiety obsessional thinking needs much reassurance and support case reviewed also with patient's reviewed results of 1st ECT change clonazepam to alprazolam for less interference with ECT Lexapro discontinued Greater than 50% of the session was spent on counseling and/or coordination of care Patient educated on: diagnosis, medication risk/benefits and ECT Reason for contiued inpatient stay Substantial Risk for: harm to self and rapid decompensation
[2020-08-24] MEDS: ALPRAZolam 0.5 MG TABLET 1 MG PO (21:44)
[2020-08-24 21:45] VITALS: BP 115/67; PULSE 66
[2020-08-24] MEDS: Atorvastatin Calcium 20 MG TABLET PO (21:45)
[2020-08-24] MEDS: Mirtazapine 30 MG TABLET PO (21:45)
[2020-08-24] MEDS: hydrOXYzine HCL 50 MG TABLET PO (21:45)
[2020-08-24] MEDS: OLANZapine 5 MG TABLET 7.5 MG PO (21:50)
[2020-08-25] VITALS (14 sets, daily range): BP systolic 119–156; BP diastolic 62–111; PULSE 58–99; RESP 16–23; TEMP 35.8–36.8; O2SAT 94–98; BMI 38.3
[2020-08-25] MEDS: OLANZapine 2.5 MG TABLET PO (05:55)
--- NOTE | 2020-08-25 06:19 | HO.ECTPROC ---
ECT Procedure Note Diagnosis/Treatment Diagnosis: Major Depressive Disorder Previous ECT Date: 08/23/20 Current Treatment Number: 2 Treatment: Series Interval Clinical Notes: No change in mood. Much ambivalence about ECT ECT Settings Device: THYMATRON DGx Electrode Placement: Rt temporal/ Lt frontal Program/Pulse Width: 0.50 Energy Percent: 100 Seizure Duration By EEG (in seconds): 57 By Motor Observation (in seconds): 39 Medications Administration General Anesthetic: Etomidate (18) Muscle Relaxant: Succinylcholine (100) Ancillary Medications Analgesics: Torodol - Pre ECT (15) Anti-emetics: Zofran - Pre ECT (4) Miscillaneous Medications: Propofol (30) Airway Management Airway Management: Bag Mask Ventilation Treatment Recommendations Electrode Placement: Rt temporal/ Lt frontal Program/Pulse Width: 0.50 Energy Percent: 100 Notes: No Flumazenil used. Reduce benzos if possible Pt Tolerated Procedure w/o Issue: Yes
--- NOTE | 2020-08-25 06:19 | MHC.SHP ---
Pre-Procedural Eval Section A The patient is an INPATIENT: Yes Changes since office visit: Yes Patient answered all questions; No Cold of Flu in the past 2 weeks, No New Medical Problems and No Changes in Medication The History & Physical has been completed within 30 days and I have reviewed it.: Yes Section B Chief Complaint: Depression Allergies: Allergies Allergy/AdvReac Type Severity Reaction Status Date / Time Iodinated Contrast Media Allergy Intermediate Hives Verified 08/15/20 12:27 Plan Diagnosis/Plan: Unchanged Patient has been examined and remains a candidate for the planned procedure
--- NOTE | 2020-08-25 07:03 | P.CONAN_ITS ---
HPI - Anesthesia Eval Consult details Narrative: 65 F with MDD pf ECT PMFSH Past Medical History Medical History Constipation Endometriosis Hypercholesteremia Hypertension Hypothyroidism Major depressive disorder, recurrent severe without psychotic features Functional capacity: independent ambulation Surgical History Surgical History Hx of appendectomy Social History Social History Household Members: Spouse Housing: House Do you presently have visiting nurse or other home services: No Alcohol intake: never Smoking Status: Never smoker Smoked in Last 30 Days: No Use of substances other than those prescribed or required for medical reasons: No Currently Displaying Signs/Symptoms of Drug Intoxication Withdrawal: No Have you been hit, kicked, punched, or otherwise hurt by someone within the past year? If so, by whom?: No Do you feel safe in your current relationship?: Yes Is there a partner from a previous relationship who is making you feel unsafe now?: No Are you made to feel afraid or neglected: No Spiritual Healthcare Practices: NONE IDENTIFIED Advance Directives: No Advance Directives Information Provided: No Advance Directives on File: No Do you have thoughts of harming others: None Do you have a plan to hurt others: No Plan Recently lost weight without trying: Yes service: No Sexual orientation: Straight/Heterosexual Meds Allergies Allergy/AdvReac Type Severity Reaction Status Date / Time Iodinated Contrast Media Allergy Intermediate Hives Verified 08/15/20 12:27 Home Medications Medication Instructions Recorded Confirmed Type atorvastatin 10 mg PO DAILY 08/15/20 08/15/20 History clonazepam 3 mg PO BEDTIME 08/15/20 08/15/20 History escitalopram oxalate [Lexapro] 5 mg PO BEDTIME 08/15/20 08/15/20 History hydroxyzine HCl 50 mg PO BEDTIME 08/15/20 08/15/20 History levothyroxine 88 mcg PO DAILY 08/15/20 08/15/20 History mirtazapine 30 mg PO BEDTIME 08/15/20 08/15/20 History nitroglycerin 0.4 mg SUBLINGUAL Q5M PRN 08/15/20 08/15/20 History propranolol 20 mg PO BID 08/15/20 08/15/20 History topiramate 75 mg PO BEDTIME 08/15/20 08/15/20 History ziprasidone HCl 20 mg PO DAILY@1700 08/15/20 08/15/20 History Exam Exam Date and Time: August 25, 2020 0703 Height,Weight and Vital Signs: Height 5 ft 2 in Weight 95.2 kg Last Vital Signs Temp 97.5 F 08/25/20 06:27 Pulse 75 08/25/20 06:27 Resp 18 08/25/20 06:27 BP 140/85 H 08/25/20 06:27 Pulse Ox 95 08/25/20 06:27 Pertinent Lab Results Pertinent Lab Results: Laboratory Tests 08/15/20 08/15/20 08/15/20 11:56 11:57 15:38 WBC 6.8 RBC 5.37 Hgb 15.1 Hct 47.4 H MCV 88.3 MCH 28.1 MCHC 31.9 RDW 14.2 Plt Count 326 MPV 10.1 Immature Gran % (Auto) 0.4 Neut % (Auto) 72.0 Lymph % (Auto) 19.1 L [place] % (Auto) 5.8 Eos % (Auto) 2.1 Baso % (Auto) 0.6 Lymph # (Auto) 1.3 [place] # (Auto) 0.4 Eos # (Auto) 0.1 Baso # (Auto) 0.0 Abs Immat Gran (auto) 0.03 Absolute Neuts (auto) 4.9 Absolute Nucleated RBC 0.000 Nucleated RBC % (auto) 0.0 PT INR APTT Sodium Potassium Chloride Carbon Dioxide Anion Gap BUN Creatinine Estim Creat Clear Calc Estimated GFR Random Glucose Fasting Glucose Calcium Total Bilirubin Direct Bilirubin AST ALT Alkaline Phosphatase Total Protein Albumin Triglycerides Cholesterol LDL Cholesterol, Calc HDL Cholesterol Vitamin B12 Folate TSH Urine Color YELLOW Urine Appearance HAZY Urine pH 5.5 Ur Specific [place] >= 1.030 H Urine Protein NEG Urine Glucose (UA) NEG Urine Ketones 40 Urine Blood NEG Urine Nitrite NEG Ur Leukocyte Esterase NEG Salicylates Urine Opiates Screen Not Detected Acetaminophen Ur Barbiturates Screen Not Detected Ur Phencyclidine Scrn Not Detected Ur Amphetamines Screen Not Detected U Benzodiazepines Scrn POSITIVE H Urine Cocaine Screen Not Detected U Marijuana (THC) Screen Not Detected Ethyl Alcohol Coronavirus (PCR) 10/25/20 10/25/20 10/25/20 15:38 15:38 15:38 WBC RBC Hgb Hct MCV MCH MCHC RDW Plt Count MPV Immature Gran % (Auto) Neut % (Auto) Lymph % (Auto) [place] % (Auto) Eos % (Auto) Baso % (Auto) Lymph # (Auto) [place] # (Auto) Eos # (Auto) Baso # (Auto) Abs Immat Gran (auto) Absolute Neuts (auto) Absolute Nucleated RBC Nucleated RBC % (auto) PT INR APTT Sodium 141 Potassium 4.0 Chloride 106 Carbon Dioxide 24 Anion Gap 15 BUN 10 Creatinine 0.91 Estim Creat Clear Calc 67.5 Estimated GFR > 60 Random Glucose 125 H Fasting Glucose Calcium 9.7 Total Bilirubin 0.4 Direct Bilirubin 0.2 AST 18 ALT 17 Alkaline Phosphatase 99 Total Protein 7.0 Albumin 4.2 Triglycerides Cholesterol LDL Cholesterol, Calc HDL Cholesterol Vitamin B12 Folate TSH Urine Color Urine Appearance Urine pH Ur Specific [place] Urine Protein Urine Glucose (UA) Urine Ketones Urine Blood Urine Nitrite Ur Leukocyte Esterase Salicylates < 5.0 L Urine Opiates Screen Acetaminophen < 1 Ur Barbiturates Screen Ur Phencyclidine Scrn Ur Amphetamines Screen U Benzodiazepines Scrn Urine Cocaine Screen U Marijuana (THC) Screen Ethyl Alcohol < 10 Coronavirus (PCR) 08/15/20 08/17/20 08/19/20 15:38 09:11 07:49 WBC RBC Hgb Hct MCV MCH MCHC RDW Plt Count MPV Immature Gran % (Auto) Neut % (Auto) Lymph % (Auto) [place] % (Auto) Eos % (Auto) Baso % (Auto) Lymph # (Auto) [place] # (Auto) Eos # (Auto) Baso # (Auto) Abs Immat Gran (auto) Absolute Neuts (auto) Absolute Nucleated RBC Nucleated RBC % (auto) PT 11.7 INR 1.0 APTT 34.8 Sodium 138 Potassium 4.2 Chloride 103 Carbon Dioxide 27 Anion Gap 12 BUN 12 Creatinine 0.92 Estim Creat Clear Calc 66.8 Estimated GFR > 60 Random Glucose Fasting Glucose 112 H Calcium 9.4 Total Bilirubin 0.5 Direct Bilirubin AST 26 D ALT 18 Alkaline Phosphatase 99 Total Protein 6.7 Albumin 4.1 Triglycerides 119 Cholesterol 151 LDL Cholesterol, Calc 76 HDL Cholesterol 52 Vitamin B12 Folate TSH 1.07 Urine Color Urine Appearance Urine pH Ur Specific [place] Urine Protein Urine Glucose (UA) Urine Ketones Urine Blood Urine Nitrite Ur Leukocyte Esterase Salicylates Urine Opiates Screen Acetaminophen Ur Barbiturates Screen Ur Phencyclidine Scrn Ur Amphetamines Screen U Benzodiazepines Scrn Urine Cocaine Screen U Marijuana (THC) Screen Ethyl Alcohol Coronavirus (PCR) NEGATIVE 08/19/20 07:49 WBC RBC Hgb Hct MCV MCH MCHC RDW Plt Count MPV Immature Gran % (Auto) Neut % (Auto) Lymph % (Auto) [place] % (Auto) Eos % (Auto) Baso % (Auto) Lymph # (Auto) [place] # (Auto) Eos # (Auto) Baso # (Auto) Abs Immat Gran (auto) Absolute Neuts (auto) Absolute Nucleated RBC Nucleated RBC % (auto) PT INR APTT Sodium Potassium Chloride Carbon Dioxide Anion Gap BUN Creatinine Estim Creat Clear Calc Estimated GFR Random Glucose Fasting Glucose Calcium Total Bilirubin Direct Bilirubin AST ALT Alkaline Phosphatase Total Protein Albumin Triglycerides Cholesterol LDL Cholesterol, Calc HDL Cholesterol Vitamin B12 364 Folate 12.4 TSH Urine Color Urine Appearance Urine pH Ur Specific [place] Urine Protein Urine Glucose (UA) Urine Ketones Urine Blood Urine Nitrite Ur Leukocyte Esterase Salicylates Urine Opiates Screen Acetaminophen Ur Barbiturates Screen Ur Phencyclidine Scrn Ur Amphetamines Screen U Benzodiazepines Scrn Urine Cocaine Screen U Marijuana (THC) Screen Ethyl Alcohol Coronavirus (PCR) Airway Mallampati Class: III TM Dist: >3cm Neck ROM: Full Loose/Missing/Broken Teeth: No Assessment and Plan Assessment Anesthesia Assessment: Anesthesia Plan Discussed and Chart Reviewed Final Anesthetic Review NPO: Yes Final Preanesthetic Review: No Changes in Pt Med Stat and Consent Obtained/Reviewed Patient Risk: Low Procedure Risk: Low Anesthetic Plan Anesthetic Plan: GA Disposition: Standard PACU
[2020-08-25] MEDS: Propranolol HCL 20 MG TABLET PO ×2 (08:52→22:33)
[2020-08-25] MEDS: Ibuprofen 600 MG TABLET PO (08:52)
[2020-08-25] MEDS: Levothyroxine Sodium 88 MCG TABLET PO (08:52)
[2020-08-25] MEDS: Lidocaine 5 % Ointment 35 GM 1 APPL TOPICAL (13:55)
[2020-08-25] MEDS: ALPRAZolam 0.5 MG TABLET 1 MG PO (22:32)
[2020-08-25] MEDS: OLANZapine 5 MG TABLET 7.5 MG PO (22:32)
[2020-08-25] MEDS: Mirtazapine 30 MG TABLET PO (22:32)
[2020-08-25] MEDS: hydrOXYzine HCL 50 MG TABLET PO (22:32)
[2020-08-25] MEDS: Atorvastatin Calcium 20 MG TABLET PO (22:32)
--- NOTE | 2020-08-25 23:51 | P.PNPSI_ITS ---
Subjective Subjective Date of Service: 08/25/20 Reason For Visit: Depression Subjective Notes: Conditional Voluntary Interim History: patient continues quite anxious ruminating worried about insomnia worried about any potential change in medication quite fearful re garding ECT fearful regarding changing medication Medication Compliance: Yes Side effects from medications: Yes Attending Groups: No Mental Status Exam Mental Status Exam Narrative: denies active self-harm in this setting but feels quite fragile hopeless tearful Patient Appearance: Appropriate Patient Orientation: Person, Place, Time and Situation Level of Consciousness: Awake and Appropriate Patient Behavior: Passive, Restless and Anxious Mood Description: Constricted, Depressed, Anxious, Sad, Nervous and Apprehensive Affect Description: Depressed Patient Cognition Impaired: No Ability to Follow Directions: Poor Speech Pattern: Clear Hallucinations: None Thought Process: Rumination Thought Content: positive for Obsessional Thoughts, positive for Circumstantial, positive for Preoccupation and positive for Hypochondriasis Depressive Symptoms: Increased Anxiety, Insomnia, Diff. Making Decisions, Increased Irritability and Thoughts of /Suicide Judgement: Fair Diagnostics Vital Signs (24Hr): Vital Signs - 24 hr 08/25/20 05:35 08/25/20 05:48 08/25/20 06:27 Temperature 97.1 F 97.1 F 97.5 F Pulse Rate 88 88 75 Respiratory Rate 18 16 18 Blood Pressure 129/78 129/78 140/85 H Pulse Oximetry 96 96 95 08/25/20 07:26 08/25/20 07:31 08/25/20 07:36 Temperature 98.2 F Pulse Rate 62 59 58 Respiratory Rate 18 20 16 Blood Pressure 144/78 H 119/71 126/69 Pulse Oximetry 98 97 97 08/25/20 07:41 08/25/20 07:46 08/25/20 07:57 Temperature 98.2 F Pulse Rate 78 71 66 Respiratory Rate 20 23 H 22 H Blood Pressure 156/83 H 147/86 H 145/85 H Pulse Oximetry 96 94 95 08/25/20 08:52 08/25/20 10:19 08/25/20 18:00 Temperature 97.2 F 96.5 F L Pulse Rate 66 62 Respiratory Rate Blood Pressure 145/85 H 146/62 H Pulse Oximetry 97 08/25/20 22:33 08/25/20 22:43 Temperature Pulse Rate 97 99 Respiratory Rate Blood Pressure 149/111 H 155/93 H Pulse Oximetry Body Mass Index 38.3 Labs Results: 08/15/20 15:38 08/19/20 07:49 Imaging Radiology Impressions: ITS Impressions Head CT 08/19/20 00:00 IMPRESSION: No acute intracranial abnormality. Medications Medications Current Medications Generic Name Dose Route Start Last Admin Trade Name Freq PRN Reason Stop Dose Admin Alprazolam 1 mg 08/24/20 21:00 08/25/20 22:32 Alprazolam 0.5 Mg Tablet PO 1 mg BEDTIME ERIN Administration Alprazolam 0.25 mg 08/26/20 08:30 Alprazolam 0.25 Mg Tablet PO BID@0830,1430 ERIN Atorvastatin Calcium 20 mg 08/16/20 21:00 08/25/20 22:32 Atorvastatin Calcium 20 Mg Tablet PO 20 mg BEDTIME ERIN Administration Hydroxyzine HCl 50 mg 08/15/20 23:15 08/25/20 22:32 Hydroxyzine Hcl 50 Mg Tablet PO 50 mg BEDTIME ERIN Administration Hydroxyzine HCl 25 mg 08/16/20 16:10 08/22/20 09:00 Hydroxyzine Hcl 25 Mg Tablet PO 25 mg Q6H PRN Administration Anxiety Ibuprofen 600 mg 08/19/20 20:12 08/25/20 08:52 Ibuprofen 600 Mg Tablet PO 600 mg Q8H PRN Administration Pain, Moderate (Pain Scale 4-6 Levothyroxine Sodium 88 mcg 08/16/20 09:00 08/25/20 08:52 Levothyroxine Sodium 88 Mcg Tablet PO 88 mcg DAILY ERIN Administration Lidocaine 1 appl 08/25/20 13:08 08/25/20 13:55 Lidocaine 5 % Ointment 35 Gm TOPICAL 1 appl Q6H PRN Administration Pain, Moderate (Pain Scale 4-6 Protocol Magnesium Citrate 150 ml 08/17/20 18:31 08/17/20 22:53 Magnesium Citrate 300 Ml Solution PO 150 ml BID PRN Administration Constipation Mirtazapine 30 mg 08/15/20 21:00 08/25/20 22:32 Mirtazapine 30 Mg Tablet PO 30 mg BEDTIME ERIN Administration Nitroglycerin 0.4 mg 08/15/20 18:42 Nitroglycerin 0.4 Mg Tab.Subl SUBLINGUAL Q5M PRN Chest Pain Olanzapine 2.5 mg 08/19/20 17:26 08/21/20 00:51 Olanzapine 2.5 Mg Tablet PO 2.5 mg BID PRN Administration anxiety/restlessness Olanzapine 7.5 mg 08/24/20 21:00 08/25/20 22:32 Olanzapine 5 Mg Tablet PO 7.5 mg BEDTIME ERIN Administration Olanzapine 2.5 mg 08/25/20 06:00 08/25/20 05:55 Olanzapine 2.5 Mg Tablet PO 2.5 mg DAILY@0600 ERIN Administration Propranolol HCl 20 mg 08/15/20 21:00 08/25/20 22:33 Propranolol Hcl 20 Mg Tablet PO 20 mg BID ERIN Administration Protocol Sodium Biphosphate/Sodium Phosphate 133 ml 08/17/20 18:31 Sodium Phosphate,[place]-Dibasic 133 Ml Enema [place] DAILY PRN Constipation Trolamine Salicylate 1 appl 08/19/20 13:52 08/20/20 09:33 Trolamine Salicylate 10 % Cream 85 Gm Tube TOPICAL 1 appl QID PRN Administration Pain, Moderate (Pain Scale 4-6 Protocol Allergies Allergies Allergy/AdvReac Type Severity Reaction Status Date / Time Iodinated Contrast Media Allergy Intermediate Hives Verified 08/15/20 12:27 Assessment & Plan Assessment & Plan (1) Severe anxiety: Status: Acute Code(s): F41.9 - Anxiety disorder, unspecified (2) Major depressive disorder, recurrent severe without psychotic features: Status: Acute Code(s): F33.2 - Major depressive disorder, recurrent severe without psychotic features Assessment and Plan: continue ECT alprazolam at bedtime consider change olanzapine to Seroquel Greater than 50% of the session was spent on counseling and/or coordination of care Patient educated on: diagnosis, medication risk/benefits and ECT Informed Consent: understands Reason for contiued inpatient stay Substantial Risk for: harm to self
[2020-08-26] MEDS: hydrOXYzine HCL 25 MG TABLET PO ×2 (01:27→23:12)
[2020-08-26] MEDS: Ibuprofen 600 MG TABLET PO ×2 (01:27→16:58)
[2020-08-26 06:20] VITALS: BP 136/77; PULSE 78; RESP 18; TEMP 36.2; O2SAT 96
[2020-08-26] MEDS: OLANZapine 2.5 MG TABLET PO (06:30)
[2020-08-26 08:44] VITALS: BP 136/77; PULSE 78
[2020-08-26] MEDS: Propranolol HCL 20 MG TABLET PO ×2 (08:44→23:05)
[2020-08-26] MEDS: Levothyroxine Sodium 88 MCG TABLET PO (08:45)
[2020-08-26] MEDS: ALPRAZolam 0.25 MG TABLET PO ×2 (10:16→14:08)
--- NOTE | 2020-08-26 12:54 | HO.POSTANES ---
Post Anesthesia Evaluation Post Anesthesia Evaluation Vital Signs: Vital Signs Temp Pulse Resp BP Pulse Ox 08/26/20 08:44 78 136/77 08/26/20 06:20 97.2 F 78 18 136/77 96 Anesthesia: General Mental Status: Awake Pain Control: Satisfactory Nausea/Vomiting: None Hydration: Adequate Anesthesia-Related Issues: No Anes. Related Issues
[2020-08-26 16:59] VITALS: BP 134/85; PULSE 80; TEMP 36.4
--- NOTE | 2020-08-26 19:07 | P.PNPSI_ITS ---
Subjective Subjective Reason For Visit: Depression Subjective Notes: Conditional Voluntary Interim History: patient continues quite anxious ruminating worried about insomnia worried about any potential change in medication quite fearful regarding ECT fearful regarding changing medication discussed starting Seroquel and increasing alprazolam continue ECT needs much encouragement Medication Compliance: Yes Side effects from medications: Yes Attending Groups: No Mental Status Exam Mental Status Exam Narrative: denies active self-harm in this setting but feels quite fragile hopeless tearful this continues Patient Appearance: Appropriate Patient Orientation: Person, Place, Time and Situation Level of Consciousness: Awake and Appropriate Patient Behavior: Passive, Restless and Anxious Mood Description: Constricted, Depressed, Anxious, Sad, Nervous and Apprehensive Affect Description: Depressed Patient Cognition Impaired: No Ability to Follow Directions: Poor Speech Pattern: Clear Diagnostics Vital Signs (24Hr): Vital Signs - 24 hr 08/25/20 22:33 08/25/20 22:43 08/26/20 06:20 Temperature 97.2 F Pulse Rate 97 99 78 Respiratory Rate 18 Blood Pressure 149/111 H 155/93 H 136/77 Pulse Oximetry 96 08/26/20 08:44 08/26/20 16:59 Temperature 97.5 F Pulse Rate 78 80 Respiratory Rate Blood Pressure 136/77 134/85 Pulse Oximetry Body Mass Index 38.3 Labs Results: 08/15/20 15:38 08/19/20 07:49 Imaging Radiology Impressions: ITS Impressions Head CT 08/19/20 00:00 IMPRESSION: No acute intracranial abnormality. Medications Medications Current Medications Generic Name Dose Route Start Last Admin Trade Name Freq PRN Reason Stop Dose Admin Alprazolam 0.25 mg 08/26/20 08:30 08/26/20 14:08 Alprazolam 0.25 Mg Tablet PO 0.25 mg BID@0830,1430 ERIN Administration Alprazolam 1.5 mg 08/26/20 21:00 Alprazolam 0.5 Mg Tablet PO BEDTIME ERIN Atorvastatin Calcium 20 mg 08/16/20 21:00 08/25/20 22:32 Atorvastatin Calcium 20 Mg Tablet PO 20 mg BEDTIME ERIN Administration Hydroxyzine HCl 50 mg 08/15/20 23:15 08/25/20 22:32 Hydroxyzine Hcl 50 Mg Tablet PO 50 mg BEDTIME ERIN Administration Hydroxyzine HCl 25 mg 08/16/20 16:10 08/26/20 01:27 Hydroxyzine Hcl 25 Mg Tablet PO 25 mg Q6H PRN Administration Anxiety Ibuprofen 600 mg 08/19/20 20:12 08/26/20 16:58 Ibuprofen 600 Mg Tablet PO 600 mg Q8H PRN Administration Pain, Moderate (Pain Scale 4-6 Levothyroxine Sodium 88 mcg 08/16/20 09:00 08/26/20 08:45 Levothyroxine Sodium 88 Mcg Tablet PO 88 mcg DAILY ERIN Administration Lidocaine 1 appl 08/25/20 13:08 08/25/20 13:55 Lidocaine 5 % Ointment 35 Gm TOPICAL 1 appl Q6H PRN Administration Pain, Moderate (Pain Scale 4-6 Protocol Magnesium Citrate 150 ml 08/17/20 18:31 08/17/20 22:53 Magnesium Citrate 300 Ml Solution PO 150 ml BID PRN Administration Constipation Mirtazapine 30 mg 08/15/20 21:00 08/25/20 22:32 Mirtazapine 30 Mg Tablet PO 30 mg BEDTIME ERIN Administration Nitroglycerin 0.4 mg 08/15/20 18:42 Nitroglycerin 0.4 Mg Tab.Subl SUBLINGUAL Q5M PRN Chest Pain Olanzapine 2.5 mg 08/19/20 17:26 08/21/20 00:51 Olanzapine 2.5 Mg Tablet PO 2.5 mg BID PRN Administration anxiety/restlessness Olanzapine 7.5 mg 08/24/20 21:00 08/25/20 22:32 Olanzapine 5 Mg Tablet PO 7.5 mg BEDTIME ERIN Administration Olanzapine 2.5 mg 08/25/20 06:00 08/26/20 06:30 Olanzapine 2.5 Mg Tablet PO 2.5 mg DAILY@0600 ERIN Administration Propranolol HCl 20 mg 08/15/20 21:00 08/26/20 08:44 Propranolol Hcl 20 Mg Tablet PO 20 mg BID ERIN Administration Protocol Sodium Biphosphate/Sodium Phosphate 133 ml 08/17/20 18:31 Sodium Phosphate,[place]-Dibasic 133 Ml Enema [place] DAILY PRN Constipation Trolamine Salicylate 1 appl 08/19/20 13:52 08/20/20 09:33 Trolamine Salicylate 10 % Cream 85 Gm Tube TOPICAL 1 appl QID PRN Administration Pain, Moderate (Pain Scale 4-6 Protocol Allergies Allergies Allergy/AdvReac Type Severity Reaction Status Date / Time Iodinated Contrast Media Allergy Intermediate Hives Verified 08/15/20 12:27 Assessment & Plan Assessment & Plan (1) Severe anxiety: Status: Acute Code(s): F41.9 - Anxiety disorder, unspecified (2) Major depressive disorder, recurrent severe without psychotic features: Status: Acute Code(s): F33.2 - Major depressive disorder, recurrent severe without psychotic features Assessment and Plan: continue ECT alprazolam at bedtime consider change olanzapine to Seroquel start Trintellix 5 mg in the morning Greater than 50% of the session was spent on counseling and/or coordination of care
[2020-08-26] MEDS: QUEtiapine Fumarate 25 MG TABLET PO (23:04)
[2020-08-26] MEDS: Atorvastatin Calcium 20 MG TABLET PO (23:04)
[2020-08-26] MEDS: OLANZapine 5 MG TABLET 7.5 MG PO (23:04)
[2020-08-26 23:05] VITALS: BP 140/87; PULSE 94
[2020-08-26] MEDS: Mirtazapine 30 MG TABLET PO (23:05)
[2020-08-26] MEDS: hydrOXYzine HCL 50 MG TABLET PO (23:05)
[2020-08-27] VITALS (12 sets, daily range): BP systolic 113–187; BP diastolic 66–101; PULSE 59–96; RESP 16–95; TEMP 36.3–36.6; O2SAT 92–96; BMI 46.3
[2020-08-27] MEDS: OLANZapine 2.5 MG TABLET PO (06:07)
--- NOTE | 2020-08-27 06:58 | HO.ECTPROC ---
ECT Procedure Note Diagnosis/Treatment Diagnosis: Major Depressive Disorder Previous ECT Date: 08/25/20 Current Treatment Number: 3 Treatment: Series Interval Clinical Notes: agitation ECT Settings Device: THYMATRON DGx Electrode Placement: Bitemporal Program/Pulse Width: 0.50 Energy Percent: 100 Seizure Duration By EEG (in seconds): 51 By Motor Observation (in seconds): 42 Medications Administration General Anesthetic: Etomidate (18) Muscle Relaxant: Succinylcholine (100) and Rocuronium (5 pre ) Ancillary Medications Analgesics: Torodol - Pre ECT (15) Anti-emetics: Zofran - Pre ECT (4) Miscillaneous Medications: Propofol (30) Airway Management Airway Management: Bag Mask Ventilation Treatment Recommendations Electrode Placement: Bitemporal Program/Pulse Width: 0.50 Energy Percent: 100 Notes: Reduce to Etom 16 Pt Tolerated Procedure w/o Issue: Yes
--- NOTE | 2020-08-27 06:59 | HO.ANESPROP2 ---
FORMERLY [facility], [facility] Past Medical History Medical History Constipation Endometriosis Hypercholesteremia Hypertension Hypothyroidism Major depressive disorder, recurrent severe without psychotic features Functional capacity: independent ambulation Surgical History Surgical History Hx of appendectomy Social History Social History Household Members: Spouse Housing: House Do you presently have visiting nurse or other home services: No Alcohol intake: never Smoking Status: Never smoker Smoked in Last 30 Days: No Use of substances other than those prescribed or required for medical reasons: No Currently Displaying Signs/Symptoms of Drug Intoxication Withdrawal: No Have you been hit, kicked, punched, or otherwise hurt by someone within the past year? If so, by whom?: No Do you feel safe in your current relationship?: Yes Is there a partner from a previous relationship who is making you feel unsafe now?: No Are you made to feel afraid or neglected: No Spiritual Healthcare Practices: NONE IDENTIFIED Advance Directives: No Advance Directives Information Provided: No Advance Directives on File: No Do you have thoughts of harming others: None Do you have a plan to hurt others: No Plan Recently lost weight without trying: Yes service: No Sexual orientation: Straight/Heterosexual Meds Allergies Allergy/AdvReac Type Severity Reaction Status Date / Time Iodinated Contrast Media Allergy Intermediate Hives Verified 08/15/20 12:27 Home Medications Medication Instructions Recorded Confirmed Type atorvastatin 10 mg PO DAILY 08/15/20 08/15/20 History clonazepam 3 mg PO BEDTIME 08/15/20 08/15/20 History escitalopram oxalate [Lexapro] 5 mg PO BEDTIME 08/15/20 08/15/20 History hydroxyzine HCl 50 mg PO BEDTIME 08/15/20 08/15/20 History levothyroxine 88 mcg PO DAILY 08/15/20 08/15/20 History mirtazapine 30 mg PO BEDTIME 08/15/20 08/15/20 History nitroglycerin 0.4 mg SUBLINGUAL Q5M PRN 08/15/20 08/15/20 History propranolol 20 mg PO BID 08/15/20 08/15/20 History topiramate 75 mg PO BEDTIME 08/15/20 08/15/20 History ziprasidone HCl 20 mg PO DAILY@1700 08/15/20 08/15/20 History Exam Exam Date and Time: August 27, 2020 0659 Height,Weight and Vital Signs: Height 5 ft 2 in Weight 114.9 kg Last Vital Signs Temp 97.8 F 08/27/20 06:36 Pulse 73 08/27/20 06:36 Resp 16 08/27/20 06:36 BP 138/73 08/27/20 06:36 Pulse Ox 96 08/27/20 06:25 Pertinent Lab Results Pertinent Lab Results: Laboratory Tests 08/15/20 08/15/20 08/15/20 11:56 11:57 15:38 WBC 6.8 RBC 5.37 Hgb 15.1 Hct 47.4 H MCV 88.3 MCH 28.1 MCHC 31.9 RDW 14.2 Plt Count 326 MPV 10.1 Immature Gran % (Auto) 0.4 Neut % (Auto) 72.0 Lymph % (Auto) 19.1 L [place] % (Auto) 5.8 Eos % (Auto) 2.1 Baso % (Auto) 0.6 Lymph # (Auto) 1.3 [place] # (Auto) 0.4 Eos # (Auto) 0.1 Baso # (Auto) 0.0 Abs Immat Gran (auto) 0.03 Absolute Neuts (auto) 4.9 Absolute Nucleated RBC 0.000 Nucleated RBC % (auto) 0.0 PT INR APTT Sodium Potassium Chloride Carbon Dioxide Anion Gap BUN Creatinine Estim Creat Clear Calc Estimated GFR Random Glucose Fasting Glucose Calcium Total Bilirubin Direct Bilirubin AST ALT Alkaline Phosphatase Total Protein Albumin Triglycerides Cholesterol LDL Cholesterol, Calc HDL Cholesterol Vitamin B12 Folate TSH Urine Color YELLOW Urine Appearance HAZY Urine pH 5.5 Ur Specific [place] >= 1.030 H Urine Protein NEG Urine Glucose (UA) NEG Urine Ketones 40 Urine Blood NEG Urine Nitrite NEG Ur Leukocyte Esterase NEG Salicylates Urine Opiates Screen Not Detected Acetaminophen Ur Barbiturates Screen Not Detected Ur Phencyclidine Scrn Not Detected Ur Amphetamines Screen Not Detected U Benzodiazepines Scrn POSITIVE H Urine Cocaine Screen Not Detected U Marijuana (THC) Screen Not Detected Ethyl Alcohol Coronavirus (PCR) 08/15/20 08/15/20 08/15/20 15:38 15:38 15:38 WBC RBC Hgb Hct MCV MCH MCHC RDW Plt Count MPV Immature Gran % (Auto) Neut % (Auto) Lymph % (Auto) [place] % (Auto) Eos % (Auto) Baso % (Auto) Lymph # (Auto) [place] # (Auto) Eos # (Auto) Baso # (Auto) Abs Immat Gran (auto) Absolute Neuts (auto) Absolute Nucleated RBC Nucleated RBC % (auto) PT INR APTT Sodium 141 Potassium 4.0 Chloride 106 Carbon Dioxide 24 Anion Gap 15 BUN 10 Creatinine 0.91 Estim Creat Clear Calc 67.5 Estimated GFR > 60 Random Glucose 125 H Fasting Glucose Calcium 9.7 Total Bilirubin 0.4 Direct Bilirubin 0.2 AST 18 ALT 17 Alkaline Phosphatase 99 Total Protein 7.0 Albumin 4.2 Triglycerides Cholesterol LDL Cholesterol, Calc HDL Cholesterol Vitamin B12 Folate TSH Urine Color Urine Appearance Urine pH Ur Specific [place] Urine Protein Urine Glucose (UA) Urine Ketones Urine Blood Urine Nitrite Ur Leukocyte Esterase Salicylates < 5.0 L Urine Opiates Screen Acetaminophen < 1 Ur Barbiturates Screen Ur Phencyclidine Scrn Ur Amphetamines Screen U Benzodiazepines Scrn Urine Cocaine Screen U Marijuana (THC) Screen Ethyl Alcohol < 10 Coronavirus (PCR) 08/15/20 08/17/20 08/19/20 15:38 09:11 07:49 WBC RBC Hgb Hct MCV MCH MCHC RDW Plt Count MPV Immature Gran % (Auto) Neut % (Auto) Lymph % (Auto) [place] % (Auto) Eos % (Auto) Baso % (Auto) Lymph # (Auto) [place] # (Auto) Eos # (Auto) Baso # (Auto) Abs Immat Gran (auto) Absolute Neuts (auto) Absolute Nucleated RBC Nucleated RBC % (auto) PT 11.7 INR 1.0 APTT 34.8 Sodium 138 Potassium 4.2 Chloride 103 Carbon Dioxide 27 Anion Gap 12 BUN 12 Creatinine 0.92 Estim Creat Clear Calc 66.8 Estimated GFR > 60 Random Glucose Fasting Glucose 112 H Calcium 9.4 Total Bilirubin 0.5 Direct Bilirubin AST 26 D ALT 18 Alkaline Phosphatase 99 Total Protein 6.7 Albumin 4.1 Triglycerides 119 Cholesterol 151 LDL Cholesterol, Calc 76 HDL Cholesterol 52 Vitamin B12 Folate TSH 1.07 Urine Color Urine Appearance Urine pH Ur Specific [place] Urine Protein Urine Glucose (UA) Urine Ketones Urine Blood Urine Nitrite Ur Leukocyte Esterase Salicylates Urine Opiates Screen Acetaminophen Ur Barbiturates Screen Ur Phencyclidine Scrn Ur Amphetamines Screen U Benzodiazepines Scrn Urine Cocaine Screen U Marijuana (THC) Screen Ethyl Alcohol Coronavirus (PCR) NEGATIVE 08/19/20 07:49 WBC RBC Hgb Hct MCV MCH MCHC RDW Plt Count MPV Immature Gran % (Auto) Neut % (Auto) Lymph % (Auto) [place] % (Auto) Eos % (Auto) Baso % (Auto) Lymph # (Auto) [place] # (Auto) Eos # (Auto) Baso # (Auto) Abs Immat Gran (auto) Absolute Neuts (auto) Absolute Nucleated RBC Nucleated RBC % (auto) PT INR APTT Sodium Potassium Chloride Carbon Dioxide Anion Gap BUN Creatinine Estim Creat Clear Calc Estimated GFR Random Glucose Fasting Glucose Calcium Total Bilirubin Direct Bilirubin AST ALT Alkaline Phosphatase Total Protein Albumin Triglycerides Cholesterol LDL Cholesterol, Calc HDL Cholesterol Vitamin B12 364 Folate 12.4 TSH Urine Color Urine Appearance Urine pH Ur Specific [place] Urine Protein Urine Glucose (UA) Urine Ketones Urine Blood Urine Nitrite Ur Leukocyte Esterase Salicylates Urine Opiates Screen Acetaminophen Ur Barbiturates Screen Ur Phencyclidine Scrn Ur Amphetamines Screen U Benzodiazepines Scrn Urine Cocaine Screen U Marijuana (THC) Screen Ethyl Alcohol Coronavirus (PCR) Airway Mallampati Class: III TM Dist: >3cm Neck ROM: Full
--- NOTE | 2020-08-27 07:01 | MHC.SHP ---
Pre-Procedural Eval Section A The patient is an INPATIENT: Yes Changes since office visit: No Cold of Flu in the past 2 weeks, No New Medical Problems, No Changes in Medication and No Patient answered all questions The History & Physical has been completed within 30 days and I have reviewed it.: Yes Section B Chief Complaint: Depression Allergies: Allergies Allergy/AdvReac Type Severity Reaction Status Date / Time Iodinated Contrast Media Allergy Intermediate Hives Verified 08/15/20 12:27 Plan Diagnosis/Plan: Unchanged Patient has been examined and remains a candidate for the planned procedure
--- NOTE | 2020-08-27 08:27 | HO.POSTANES ---
Post Anesthesia Evaluation Post Anesthesia Evaluation Vital Signs: Vital Signs Temp Pulse Resp BP Pulse Ox 08/27/20 07:51 72 18 153/87 H 95 08/27/20 07:46 74 19 150/92 H 96 08/27/20 07:41 76 21 H 113/66 93 08/27/20 07:36 97.5 F 59 20 114/68 92 08/27/20 06:36 97.8 F 73 16 138/73 08/27/20 06:25 97.4 F 78 18 166/101 H 96 08/27/20 06:00 97.8 F 73 16 138/73 08/26/20 23:05 94 140/87 H Anesthesia: General Mental Status: Awake Pain Control: Satisfactory Nausea/Vomiting: None Hydration: Adequate Anesthesia-Related Issues: No Anes. Related Issues
[2020-08-27] MEDS: Propranolol HCL 20 MG TABLET PO ×2 (08:59→22:43)
[2020-08-27] MEDS: Levothyroxine Sodium 88 MCG TABLET PO (08:59)
--- NOTE | 2020-08-27 10:15 | PC.NURSE ---
Late entry. Pt admitted to PACU for ECT. IV inserted, LR infusion started, anesthesia to place order.
--- NOTE | 2020-08-27 10:39 | HO.PSYCHPN ---
Subjective Subjective Date of Service: 08/27/20 Reason For Visit: Depression Subjective Notes: Conditional Voluntary Interim History: patient continues quite anxious ruminating worried about insomnia worried about any potential change in medication quite fearful regarding ECT fearful regarding changing medication HAD BITEMPORAL ECT TODAY patient complains of muscle aches in her calf sent thigh unclear if related to ECT or antipsychotic side effect. tearful severely anxious and depressed not responding to olanzapine Medication Compliance: Yes Side effects from medications: Yes Attending Groups: No Mental Status Exam Mental Status Exam Narrative: denies active self-harm in this setting but feels quite fragile hopeless tearful ruminating on what happens if ECT not effective not psychotic no hallucinations or delusions does not respond easily to reassurance Patient Appearance: Appropriate Patient Orientation: Person, Place, Time and Situation Level of Consciousness: Awake Patient Behavior: Passive, Restless, Anxious and Fearful Mood Description: Constricted, Depressed, Anxious, Sad, Nervous and Apprehensive Affect Description: Depressed Patient Cognition Impaired: No Ability to Follow Directions: Poor Speech Pattern: Clear Diagnostics Vital Signs (24Hr): Vital Signs - 24 hr 08/26/20 16:59 08/26/20 23:05 08/27/20 06:00 Temperature 97.5 F 97.8 F Pulse Rate 80 94 73 Respiratory Rate 16 Blood Pressure 134/85 140/87 H 138/73 Pulse Oximetry 08/27/20 06:25 08/27/20 06:36 08/27/20 07:36 Temperature 97.4 F 97.8 F 97.5 F Pulse Rate 78 73 59 Respiratory Rate 18 16 20 Blood Pressure 166/101 H 138/73 114/68 Pulse Oximetry 96 92 08/27/20 07:41 08/27/20 07:46 08/27/20 07:51 Temperature Pulse Rate 76 74 72 Respiratory Rate 21 H 19 18 Blood Pressure 113/66 150/92 H 153/87 H Pulse Oximetry 93 96 95 08/27/20 08:06 08/27/20 08:28 08/27/20 08:53 Temperature 97.4 F 97.4 F Pulse Rate 61 61 72 Respiratory Rate 16 95 H Blood Pressure 165/81 H 140/82 H 187/83 H Pulse Oximetry 94 96 08/27/20 08:59 Temperature Pulse Rate 72 Respiratory Rate Blood Pressure 187/83 H Pulse Oximetry Body Mass Index 46.3 Labs Results: 08/15/20 15:38 08/19/20 07:49 Imaging Radiology Impressions: ITS Impressions Head CT 08/19/20 00:00 IMPRESSION: No acute intracranial abnormality. Medications Medications Current Medications Generic Name Dose Route Start Last Admin Trade Name Berhaneq PRN Reason Stop Dose Admin Alprazolam 0.25 mg 08/26/20 08:30 08/26/20 14:08 Alprazolam 0.25 Mg Tablet PO 0.25 mg BID@0830,1430 ERIN Administration Alprazolam 1.5 mg 08/26/20 21:00 08/26/20 22:59 Alprazolam 0.5 Mg Tablet PO Not Given BEDTIME ERIN Atorvastatin Calcium 20 mg 08/16/20 21:00 08/26/20 23:04 Atorvastatin Calcium 20 Mg Tablet PO 20 mg BEDTIME ERIN Administration Hydroxyzine HCl 50 mg 08/15/20 23:15 08/26/20 23:05 Hydroxyzine Hcl 50 Mg Tablet PO 50 mg BEDTIME ERIN Administration Hydroxyzine HCl 25 mg 08/16/20 16:10 08/26/20 23:12 Hydroxyzine Hcl 25 Mg Tablet PO 25 mg Q6H PRN Administration Anxiety Ibuprofen 600 mg 08/19/20 20:12 08/26/20 16:58 Ibuprofen 600 Mg Tablet PO 600 mg Q8H PRN Administration Pain, Moderate (Pain Scale 4-6 Levothyroxine Sodium 88 mcg 08/16/20 09:00 08/27/20 08:59 Levothyroxine Sodium 88 Mcg Tablet PO 88 mcg DAILY ERIN Administration Lidocaine 1 appl 08/25/20 13:08 08/25/20 13:55 Lidocaine 5 % Ointment 35 Gm TOPICAL 1 appl Q6H PRN Administration Pain, Moderate (Pain Scale 4-6 Protocol Magnesium Citrate 150 ml 08/17/20 18:31 08/17/20 22:53 Magnesium Citrate 300 Ml Solution PO 150 ml BID PRN Administration Constipation Mirtazapine 30 mg 08/15/20 21:00 08/26/20 23:05 Mirtazapine 30 Mg Tablet PO 30 mg BEDTIME ERIN Administration Nitroglycerin 0.4 mg 08/15/20 18:42 Nitroglycerin 0.4 Mg Tab.Subl SUBLINGUAL Q5M PRN Chest Pain Olanzapine 2.5 mg 08/19/20 17:26 08/21/20 00:51 Olanzapine 2.5 Mg Tablet PO 2.5 mg BID PRN Administration anxiety/restlessness Olanzapine 7.5 mg 08/24/20 21:00 08/26/20 23:04 Olanzapine 5 Mg Tablet PO 7.5 mg BEDTIME ERIN Administration Olanzapine 2.5 mg 08/25/20 06:00 08/27/20 06:07 Olanzapine 2.5 Mg Tablet PO 2.5 mg DAILY@0600 ERIN Administration Ondansetron HCl 4 mg 08/27/20 07:00 Ondansetron Hcl 4 Mg/2 Ml Vial IVPUSH ONCE PRN Nausea and Vomiting Propranolol HCl 20 mg 08/15/20 21:00 08/27/20 08:59 Propranolol Hcl 20 Mg Tablet PO 20 mg BID ERIN Administration Protocol Quetiapine Fumarate 25 mg 08/26/20 19:15 08/26/20 23:04 Quetiapine Fumarate 25 Mg Tablet PO 25 mg BEDTIME PRN Administration Insomnia Sodium Biphosphate/Sodium Phosphate 133 ml 08/17/20 18:31 Sodium Phosphate,[place]-Dibasic 133 Ml Enema [place] DAILY PRN Constipation Trolamine Salicylate 1 appl 08/19/20 13:52 08/20/20 09:33 Trolamine Salicylate 10 % Cream 85 Gm Tube TOPICAL 1 appl QID PRN Administration Pain, Moderate (Pain Scale 4-6 Protocol Allergies Allergies Allergy/AdvReac Type Severity Reaction Status Date / Time Iodinated Contrast Media Allergy Intermediate Hives Verified 08/15/20 12:27 Assessment & Plan Assessment & Plan (1) Severe anxiety: Status: Acute Code(s): F41.9 - Anxiety disorder, unspecified (2) Major depressive disorder, recurrent severe without psychotic features: Status: Acute Code(s): F33.2 - Major depressive disorder, recurrent severe without psychotic features Assessment and Plan: continue ECT alprazolam at bedtime and during the day replacing 2 mg of Klonopin at bedtime. Stop Zyprexa may be contributing to EPS or patient did do a test dose of quetiapine this afternoon and did seem improved start quetiapine increase as tolerated and needed Trintellix 5 mg in the morning case reviewed with Dr. brando Fuentes outpatient psychiatrist Greater than 50% of the session was spent on counseling and/or coordination of care
[2020-08-27] MEDS: QUEtiapine Fumarate 25 MG TABLET PO ×2 (13:50→22:42)
[2020-08-27] MEDS: ALPRAZolam 0.25 MG TABLET PO (13:52)
[2020-08-27] MEDS: ALPRAZolam 0.5 MG TABLET 1.5 MG PO (22:41)
[2020-08-27] MEDS: Mirtazapine 30 MG TABLET PO (22:41)
[2020-08-27] MEDS: Atorvastatin Calcium 20 MG TABLET PO (22:42)
[2020-08-27] MEDS: hydrOXYzine HCL 50 MG TABLET PO (22:42)
[2020-08-28 09:00] VITALS: BP 113/80; PULSE 70
[2020-08-28] MEDS: Propranolol HCL 20 MG TABLET PO ×2 (09:00→20:25)
[2020-08-28] MEDS: Levothyroxine Sodium 88 MCG TABLET PO (09:00)
[2020-08-28] MEDS: Vortioxetine Hydrobromide 5 MG TABLET PO (09:00)
[2020-08-28] MEDS: QUEtiapine Fumarate 25 MG TABLET PO ×3 (09:00→22:52)
[2020-08-28] MEDS: ALPRAZolam 0.25 MG TABLET PO ×2 (09:05→15:04)
[2020-08-28] MEDS: Mirtazapine 30 MG TABLET PO (20:24)
[2020-08-28] MEDS: Atorvastatin Calcium 20 MG TABLET PO (20:24)
[2020-08-28 20:25] VITALS: BP 147/66; PULSE 65
[2020-08-28] MEDS: hydrOXYzine HCL 50 MG TABLET PO (20:25)
[2020-08-28] MEDS: ALPRAZolam 0.5 MG TABLET 1.5 MG PO (20:25)
--- NOTE | 2020-08-28 20:25 | HO.PSYCHPN ---
Subjective Subjective Date of Service: 08/28/20 Reason For Visit: Depression Subjective Notes: Conditional Voluntary Interim History: Mireille remains quite agitated, ruminative and anxious. She has tolerated ECT thus far but not noticed any improvement. Medication Compliance: Yes Side effects from medications: No Attending Groups: Intermittent Review of Systems Acute medical concerns: No Medical Review of Systems: unchanged Mental Status Exam Mental Status Exam Narrative: denies active self-harm in this setting but feels quite fragile hopeless tearful ruminating on what happens if ECT not effective not psychotic no hallucinations or delusions does not respond easily to reassurance Patient Appearance: Appropriate Patient Orientation: Person, Place, Time and Situation Level of Consciousness: Awake Patient Behavior: Passive, Restless, Anxious and Fearful Mood Description: Constricted, Depressed, Anxious, Sad, Nervous and Apprehensive Affect Description: Depressed Patient Cognition Impaired: No Ability to Follow Directions: Poor Speech Pattern: Clear Hallucinations: None Delusions: Not Present Thought Process: Rumination and Slowed Thinking Thought Content: positive for Obsessional Thoughts, positive for Preoccupation, negative for Suicidal Ideation and positive for Homicidal Ideation Depressive Symptoms: Diff. Making Decisions, Increased Irritability, Hopelessness, Thoughts of /Suicide, Loss of Energy and Difficulty Concentrating Judgement: Poor Diagnostics Vital Signs (24Hr): Vital Signs - 24 hr 08/27/20 22:43 08/28/20 09:00 Pulse Rate 96 70 Blood Pressure 170/95 H 113/80 Body Mass Index 46.3 Labs Results: 08/15/20 15:38 08/19/20 07:49 Imaging Radiology Impressions: ITS Impressions Head CT 08/19/20 00:00 IMPRESSION: No acute intracranial abnormality. Medications Medications Current Medications Generic Name Dose Route Start Last Admin Trade Name Berhaneq PRN Reason Stop Dose Admin Alprazolam 0.25 mg 08/26/20 08:30 08/28/20 15:04 Alprazolam 0.25 Mg Tablet PO 0.25 mg BID@0830,1430 ERIN Administration Alprazolam 1.5 mg 08/26/20 21:00 08/27/20 22:41 Alprazolam 0.5 Mg Tablet PO 1.5 mg BEDTIME ERIN Administration Atorvastatin Calcium 20 mg 08/16/20 21:00 08/27/20 22:42 Atorvastatin Calcium 20 Mg Tablet PO 20 mg BEDTIME ERIN Administration Hydroxyzine HCl 50 mg 08/15/20 23:15 08/27/20 22:42 Hydroxyzine Hcl 50 Mg Tablet PO 50 mg BEDTIME ERIN Administration Hydroxyzine HCl 25 mg 08/16/20 16:10 08/26/20 23:12 Hydroxyzine Hcl 25 Mg Tablet PO 25 mg Q6H PRN Administration Anxiety Ibuprofen 600 mg 08/19/20 20:12 08/26/20 16:58 Ibuprofen 600 Mg Tablet PO 600 mg Q8H PRN Administration Pain, Moderate (Pain Scale 4-6 Levothyroxine Sodium 88 mcg 08/16/20 09:00 08/28/20 09:00 Levothyroxine Sodium 88 Mcg Tablet PO 88 mcg DAILY ERIN Administration Lidocaine 1 appl 08/25/20 13:08 08/25/20 13:55 Lidocaine 5 % Ointment 35 Gm TOPICAL 1 appl Q6H PRN Administration Pain, Moderate (Pain Scale 4-6 Protocol Magnesium Citrate 150 ml 08/17/20 18:31 08/17/20 22:53 Magnesium Citrate 300 Ml Solution PO 150 ml BID PRN Administration Constipation Mirtazapine 30 mg 08/15/20 21:00 08/27/20 22:41 Mirtazapine 30 Mg Tablet PO 30 mg BEDTIME ERIN Administration Nitroglycerin 0.4 mg 08/15/20 18:42 Nitroglycerin 0.4 Mg Tab.Subl SUBLINGUAL Q5M PRN Chest Pain Ondansetron HCl 4 mg 08/27/20 07:00 Ondansetron Hcl 4 Mg/2 Ml Vial IVPUSH ONCE PRN Nausea and Vomiting Propranolol HCl 20 mg 08/15/20 21:00 08/28/20 09:00 Propranolol Hcl 20 Mg Tablet PO 20 mg BID ERIN Administration Protocol Quetiapine Fumarate 25 mg 08/26/20 19:15 08/26/20 23:04 Quetiapine Fumarate 25 Mg Tablet PO 25 mg BEDTIME PRN Administration Insomnia Quetiapine Fumarate 25 mg 08/27/20 21:00 08/28/20 09:00 Quetiapine Fumarate 25 Mg Tablet PO 25 mg BID ERIN Administration Quetiapine Fumarate 25 mg 08/27/20 20:08 Quetiapine Fumarate 25 Mg Tablet PO Q6H PRN anxiety/restlessness Sodium Biphosphate/Sodium Phosphate 133 ml 08/17/20 18:31 Sodium Phosphate,[place]-Dibasic 133 Ml Enema [place] DAILY PRN Constipation Trolamine Salicylate 1 appl 08/19/20 13:52 08/20/20 09:33 Trolamine Salicylate 10 % Cream 85 Gm Tube TOPICAL 1 appl QID PRN Administration Pain, Moderate (Pain Scale 4-6 Protocol Vortioxetine 5 mg 08/28/20 09:00 08/28/20 09:00 Vortioxetine Hydrobromide 5 Mg Tablet PO 5 mg DAILY ERIN Administration Allergies Allergies Allergy/AdvReac Type Severity Reaction Status Date / Time Iodinated Contrast Media Allergy Intermediate Hives Verified 08/15/20 12:27 Assessment & Plan Assessment & Plan (1) Major depressive disorder, recurrent severe without psychotic features: Status: Acute Code(s): F33.2 - Major depressive disorder, recurrent severe without psychotic features Assessment and Plan: CT ECT Greater than 50% of the session was spent on counseling and/or coordination of care Patient educated on: diagnosis and ECT Informed Consent: further education needed Reason for contiued inpatient stay Substantial Risk for: rapid decompensation
[2020-08-29] MEDS: hydrOXYzine HCL 25 MG TABLET PO ×2 (03:48→16:47)
[2020-08-29 06:10] VITALS: BP 133/78; PULSE 79; RESP 18; TEMP 35.5; O2SAT 96
[2020-08-29] MEDS: QUEtiapine Fumarate 25 MG TABLET PO ×2 (08:23→21:55)
[2020-08-29] MEDS: Vortioxetine Hydrobromide 5 MG TABLET PO (08:23)
[2020-08-29 08:24] VITALS: BP 133/78; PULSE 79
[2020-08-29] MEDS: Propranolol HCL 20 MG TABLET PO ×2 (08:24→20:48)
[2020-08-29] MEDS: ALPRAZolam 0.25 MG TABLET PO ×2 (08:24→13:58)
[2020-08-29] MEDS: Levothyroxine Sodium 88 MCG TABLET PO (08:24)
--- NOTE | 2020-08-29 12:07 | HO.PSYCHPN ---
Subjective Subjective Date of Service: 08/29/20 Reason For Visit: Depression Subjective Notes: Conditional Voluntary Interim History: Mireille remains quite agitated, ruminative and anxious. She has tolerated ECT thus far but not noticed any improvement. She needs a lot of support from staff. Medication Compliance: Yes Side effects from medications: No Attending Groups: Intermittent Review of Systems Acute medical concerns: No Medical Review of Systems: unchanged Mental Status Exam Mental Status Exam Patient Appearance: Appropriate Patient Orientation: Person, Place, Time and Situation Level of Consciousness: Awake Patient Behavior: Passive, Restless, Anxious and Fearful Mood Description: Constricted, Depressed, Anxious, Sad, Nervous and Apprehensive Affect Description: Depressed Patient Cognition Impaired: No Ability to Follow Directions: Poor Speech Pattern: Clear Memory Description: Intact Hallucinations: None Delusions: Not Present Thought Content: negative for Suicidal Ideation and negative for Homicidal Ideation Depressive Symptoms: Increased Anxiety, Insomnia, Feelings of Worthlessness, Feelings of Guilt, Thoughts of /Suicide and Difficulty Concentrating Diagnostics Vital Signs (24Hr): Vital Signs - 24 hr 08/28/20 20:25 08/29/20 06:10 08/29/20 08:24 Temperature 95.9 F L Pulse Rate 65 79 79 Respiratory Rate 18 Blood Pressure 147/66 H 133/78 133/78 Pulse Oximetry 96 Body Mass Index 46.3 Labs Results: 08/15/20 15:38 08/19/20 07:49 Imaging Radiology Impressions: ITS Impressions Head CT 08/19/20 00:00 IMPRESSION: No acute intracranial abnormality. Medications Medications Current Medications Generic Name Dose Route Start Last Admin Trade Name Freq PRN Reason Stop Dose Admin Alprazolam 0.25 mg 08/26/20 08:30 08/29/20 08:24 Alprazolam 0.25 Mg Tablet PO 0.25 mg BID@0830,1430 ERIN Administration Alprazolam 1.5 mg 08/26/20 21:00 08/28/20 20:25 Alprazolam 0.5 Mg Tablet PO 1.5 mg BEDTIME ERIN Administration Atorvastatin Calcium 20 mg 08/16/20 21:00 08/28/20 20:24 Atorvastatin Calcium 20 Mg Tablet PO 20 mg BEDTIME ERIN Administration Hydroxyzine HCl 50 mg 08/15/20 23:15 08/28/20 20:25 Hydroxyzine Hcl 50 Mg Tablet PO 50 mg BEDTIME ERIN Administration Hydroxyzine HCl 25 mg 10/26/20 16:10 08/29/20 03:48 Hydroxyzine Hcl 25 Mg Tablet PO 25 mg Q6H PRN Administration Anxiety Ibuprofen 600 mg 08/19/20 20:12 08/26/20 16:58 Ibuprofen 600 Mg Tablet PO 600 mg Q8H PRN Administration Pain, Moderate (Pain Scale 4-6 Levothyroxine Sodium 88 mcg 08/16/20 09:00 08/29/20 08:24 Levothyroxine Sodium 88 Mcg Tablet PO 88 mcg DAILY ERIN Administration Lidocaine 1 appl 08/25/20 13:08 08/25/20 13:55 Lidocaine 5 % Ointment 35 Gm TOPICAL 1 appl Q6H PRN Administration Pain, Moderate (Pain Scale 4-6 Protocol Magnesium Citrate 150 ml 08/17/20 18:31 08/17/20 22:53 Magnesium Citrate 300 Ml Solution PO 150 ml BID PRN Administration Constipation Mirtazapine 30 mg 08/15/20 21:00 08/28/20 20:24 Mirtazapine 30 Mg Tablet PO 30 mg BEDTIME ERIN Administration Nitroglycerin 0.4 mg 08/15/20 18:42 Nitroglycerin 0.4 Mg Tab.Subl SUBLINGUAL Q5M PRN Chest Pain Ondansetron HCl 4 mg 08/27/20 07:00 Ondansetron Hcl 4 Mg/2 Ml Vial IVPUSH ONCE PRN Nausea and Vomiting Propranolol HCl 20 mg 08/15/20 21:00 08/29/20 08:24 Propranolol Hcl 20 Mg Tablet PO 20 mg BID ERIN Administration Protocol Quetiapine Fumarate 25 mg 08/26/20 19:15 08/28/20 20:25 Quetiapine Fumarate 25 Mg Tablet PO 25 mg BEDTIME PRN Administration Insomnia Quetiapine Fumarate 25 mg 08/27/20 21:00 08/29/20 08:23 Quetiapine Fumarate 25 Mg Tablet PO 25 mg BID ERIN Administration Quetiapine Fumarate 25 mg 08/27/20 20:08 Quetiapine Fumarate 25 Mg Tablet PO Q6H PRN anxiety/restlessness Sodium Biphosphate/Sodium Phosphate 133 ml 08/17/20 18:31 Sodium Phosphate,[place]-Dibasic 133 Ml Enema [place] DAILY PRN Constipation Trolamine Salicylate 1 appl 08/19/20 13:52 08/20/20 09:33 Trolamine Salicylate 10 % Cream 85 Gm Tube TOPICAL 1 appl QID PRN Administration Pain, Moderate (Pain Scale 4-6 Protocol Vortioxetine 5 mg 08/28/20 09:00 08/29/20 08:23 Vortioxetine Hydrobromide 5 Mg Tablet PO 5 mg DAILY ERIN Administration Allergies Allergies Allergy/AdvReac Type Severity Reaction Status Date / Time Iodinated Contrast Media Allergy Intermediate Hives Verified 08/15/20 12:27 Assessment & Plan Assessment & Plan (1) Major depressive disorder, recurrent severe without psychotic features: Status: Acute Code(s): F33.2 - Major depressive disorder, recurrent severe without psychotic features Assessment and Plan: CT ECT Greater than 50% of the session was spent on counseling and/or coordination of care Patient educated on: diagnosis, medication risk/benefits and ECT Informed Consent: further education needed Reason for contiued inpatient stay Substantial Risk for: rapid decompensation
[2020-08-29] MEDS: ALPRAZolam 0.5 MG TABLET 1.5 MG PO (20:47)
[2020-08-29 20:48] VITALS: BP 182/109; PULSE 105
[2020-08-29] MEDS: Atorvastatin Calcium 20 MG TABLET PO (21:55)
[2020-08-29] MEDS: Mirtazapine 30 MG TABLET PO (21:55)
[2020-08-29] MEDS: hydrOXYzine HCL 50 MG TABLET PO (21:55)
[2020-08-29 22:00] VITALS: BP 110/76; PULSE 78
[2020-08-30] VITALS (10 sets, daily range): BP systolic 123–173; BP diastolic 69–93; PULSE 60–83; RESP 16–20; TEMP 35.9–36.4; O2SAT 95–99; BMI 46.3
[2020-08-30] MEDS: QUEtiapine Fumarate 25 MG TABLET PO ×3 (09:53→21:26)
[2020-08-30] MEDS: Vortioxetine Hydrobromide 5 MG TABLET PO (09:53)
[2020-08-30] MEDS: Levothyroxine Sodium 88 MCG TABLET PO (09:53)
[2020-08-30] MEDS: Propranolol HCL 20 MG TABLET PO ×2 (09:54→21:27)
[2020-08-30] MEDS: ALPRAZolam 0.5 MG TABLET PO (11:04)
--- NOTE | 2020-08-30 13:59 | HO.ANESPROP2 ---
[facility] Past Medical History Medical History Constipation Endometriosis Hypercholesteremia Hypertension Hypothyroidism Major depressive disorder, recurrent severe without psychotic features Functional capacity: independent ambulation Surgical History Surgical History Hx of appendectomy Social History Social History Household Members: Spouse Housing: House Are you a primary career guidance counselor to a significant other at home: No Do you presently have visiting nurse or other home services: No Alcohol intake: never Smoking Status: Former smoker Years Smoked: 5 Smoked in Last 30 Days: No Use of substances other than those prescribed or required for medical reasons: No Currently Displaying Signs/Symptoms of Drug Intoxication Withdrawal: No Have you been hit, kicked, punched, or otherwise hurt by someone within the past year? If so, by whom?: No Do you feel safe in your current relationship?: Yes Is there a partner from a previous relationship who is making you feel unsafe now?: No Are you made to feel afraid or neglected: No Spiritual Healthcare Practices: NONE IDENTIFIED [facility] Pract[facility]: [facility] [place], [facility] Advance Directives: No Advance Directives Information Provided: No Advance Directives on File: No Do you have thoughts of harming others: None Do you have a plan to hurt others: No Plan Recently lost weight without trying: No service: No Sexual orientation: Straight/Heterosexual Meds Allergies Allergy/AdvReac Type Severity Reaction Status Date / Time Iodinated Contrast Media Allergy Intermediate Hives Verified 08/15/20 12:27 Home Medications Medication Instructions Recorded Confirmed Type atorvastatin 10 mg PO DAILY 08/15/20 08/15/20 History clonazepam 3 mg PO BEDTIME 08/15/20 08/15/20 History escitalopram oxalate [Lexapro] 5 mg PO BEDTIME 08/15/20 08/15/20 History hydroxyzine HCl 50 mg PO BEDTIME 08/15/20 08/15/20 History levothyroxine 88 mcg PO DAILY 08/15/20 08/15/20 History mirtazapine 30 mg PO BEDTIME 08/15/20 08/15/20 History nitroglycerin 0.4 mg SUBLINGUAL Q5M PRN 08/15/20 08/15/20 History propranolol 20 mg PO BID 08/15/20 08/15/20 History topiramate 75 mg PO BEDTIME 08/15/20 08/15/20 History ziprasidone HCl 20 mg PO DAILY@1700 08/15/20 08/15/20 History Exam Exam Date and Time: August 30, 2020 1359 Height,Weight and Vital Signs: Height 5 ft 2 in Weight 114.9 kg Last Vital Signs Temp 96.6 F L 08/30/20 05:30 Pulse 70 08/30/20 10:49 Resp 20 08/30/20 05:30 BP 157/83 H 08/30/20 10:49 Pulse Ox 95 08/30/20 05:30 Pertinent Lab Results Pertinent Lab Results: Laboratory Tests 08/15/20 08/15/20 08/15/20 11:56 11:57 15:38 WBC 6.8 RBC 5.37 Hgb 15.1 Hct 47.4 H MCV 88.3 MCH 28.1 MCHC 31.9 RDW 14.2 Plt Count 326 MPV 10.1 Immature Gran % (Auto) 0.4 Neut % (Auto) 72.0 Lymph % (Auto) 19.1 L Mcpherson % (Auto) 5.8 Eos % (Auto) 2.1 Baso % (Auto) 0.6 Lymph # (Auto) 1.3 Mcpherson # (Auto) 0.4 Eos # (Auto) 0.1 Baso # (Auto) 0.0 Abs Immat Gran (auto) 0.03 Absolute Neuts (auto) 4.9 Absolute Nucleated RBC 0.000 Nucleated RBC % (auto) 0.0 PT INR APTT Sodium Potassium Chloride Carbon Dioxide Anion Gap BUN Creatinine Estim Creat Clear Calc Estimated GFR Random Glucose Fasting Glucose Calcium Total Bilirubin Direct Bilirubin AST ALT Alkaline Phosphatase Total Protein Albumin Triglycerides Cholesterol LDL Cholesterol, Calc HDL Cholesterol Vitamin B12 Folate TSH Urine Color YELLOW Urine Appearance HAZY Urine pH 5.5 Ur Specific [place] >= 1.030 H Urine Protein NEG Urine Glucose (UA) NEG Urine Ketones 40 Urine Blood NEG Urine Nitrite NEG Ur Leukocyte Esterase NEG Salicylates Urine Opiates Screen Not Detected Acetaminophen Ur Barbiturates Screen Not Detected Ur Phencyclidine Scrn Not Detected Ur Amphetamines Screen Not Detected U Benzodiazepines Scrn POSITIVE H Urine Cocaine Screen Not Detected U Marijuana (THC) Screen Not Detected Ethyl Alcohol Coronavirus (PCR) 08/15/20 08/15/20 08/15/20 15:38 15:38 15:38 WBC RBC Hgb Hct MCV MCH MCHC RDW Plt Count MPV Immature Gran % (Auto) Neut % (Auto) Lymph % (Auto) [place]pherson % (Auto) Eos % (Auto) Baso % (Auto) Lymph # (Auto) [place]pher[place] # (Auto) Eos # (Auto) Baso # (Auto) Abs Immat Gran (auto) Absolute Neuts (auto) Absolute Nucleated RBC Nucleated RBC % (auto) PT INR APTT Sodium 141 Potassium 4.0 Chloride 106 Carbon Dioxide 24 Anion Gap 15 BUN 10 Creatinine 0.91 Estim Creat Clear Calc 67.5 Estimated GFR > 60 Random Glucose 125 H Fasting Glucose Calcium 9.7 Total Bilirubin 0.4 Direct Bilirubin 0.2 AST 18 ALT 17 Alkaline Phosphatase 99 Total Protein 7.0 Albumin 4.2 Triglycerides Cholesterol LDL Cholesterol, Calc HDL Cholesterol Vitamin B12 Folate TSH Urine Color Urine Appearance Urine pH Ur Specific [place] Urine Protein Urine Glucose (UA) Urine Ketones Urine Blood Urine Nitrite Ur Leukocyte Esterase Salicylates < 5.0 L Urine Opiates Screen Acetaminophen < 1 Ur Barbiturates Screen Ur Phencyclidine Scrn Ur Amphetamines Screen U Benzodiazepines Scrn Urine Cocaine Screen U Marijuana (THC) Screen Ethyl Alcohol < 10 Coronavirus (PCR) 08/15/20 08/17/20 08/19/20 15:38 09:11 07:49 WBC RBC Hgb Hct MCV MCH MCHC RDW Plt Count MPV Immature Gran % (Auto) Neut % (Auto) Lymph % (Auto) [place]pher[place] % (Auto) Eos % (Auto) Baso % (Auto) Lymph # (Auto) [place] # (Auto) Eos # (Auto) Baso # (Auto) Abs Immat Gran (auto) Absolute Neuts (auto) Absolute Nucleated RBC Nucleated RBC % (auto) PT 11.7 INR 1.0 APTT 34.8 Sodium 138 Potassium 4.2 Chloride 103 Carbon Dioxide 27 Anion Gap 12 BUN 12 Creatinine 0.92 Estim Creat Clear Calc 66.8 Estimated GFR > 60 Random Glucose Fasting Glucose 112 H Calcium 9.4 Total Bilirubin 0.5 Direct Bilirubin AST 26 D ALT 18 Alkaline Phosphatase 99 Total Protein 6.7 Albumin 4.1 Triglycerides 119 Cholesterol 151 LDL Cholesterol, Calc 76 HDL Cholesterol 52 Vitamin B12 Folate TSH 1.07 Urine Color Urine Appearance Urine pH Ur Specific [place] Urine Protein Urine Glucose (UA) Urine Ketones Urine Blood Urine Nitrite Ur Leukocyte Esterase Salicylates Urine Opiates Screen Acetaminophen Ur Barbiturates Screen Ur Phencyclidine Scrn Ur Amphetamines Screen U Benzodiazepines Scrn Urine Cocaine Screen U Marijuana (THC) Screen Ethyl Alcohol Coronavirus (PCR) NEGATIVE 08/19/20 07:49 WBC RBC Hgb Hct MCV MCH MCHC RDW Plt Count MPV Immature Gran % (Auto) Neut % (Auto) Lymph % (Auto) [place] % (Auto) Eos % (Auto) Baso % (Auto) Lymph # (Auto) [place] # (Auto) Eos # (Auto) Baso # (Auto) Abs Immat Gran (auto) Absolute Neuts (auto) Absolute Nucleated RBC Nucleated RBC % (auto) PT INR APTT Sodium Potassium Chloride Carbon Dioxide Anion Gap BUN Creatinine Estim Creat Clear Calc Estimated GFR Random Glucose Fasting Glucose Calcium Total Bilirubin Direct Bilirubin AST ALT Alkaline Phosphatase Total Protein Albumin Triglycerides Cholesterol LDL Cholesterol, Calc HDL Cholesterol Vitamin B12 364 Folate 12.4 TSH Urine Color Urine Appearance Urine pH Ur Specific [place] Urine Protein Urine Glucose (UA) Urine Ketones Urine Blood Urine Nitrite Ur Leukocyte Esterase Salicylates Urine Opiates Screen Acetaminophen Ur Barbiturates Screen Ur Phencyclidine Scrn Ur Amphetamines Screen U Benzodiazepines Scrn Urine Cocaine Screen U Marijuana (THC) Screen Ethyl Alcohol Coronavirus (PCR) Airway Mallampati Class: II TM Dist: >3cm Neck ROM: Full Heart: RRR Lungs: CTA BL Assessment and Plan Assessment Anesthesia Assessment: Anesthesia Plan Discussed and Chart Reviewed Final Anesthetic Review NPO: Yes (Sip of water) ASA Class: III Final Preanesthetic Review: Meds/Allgs Chart Reviewed and Consent Obtained/Reviewed Patient Risk: Intermediate Procedure Risk: Intermediate Anesthetic Plan Anesthetic Plan: GA Disposition: Standard PACU
--- NOTE | 2020-08-30 14:39 | HO.ECTPROC ---
ECT Procedure Note Diagnosis/Treatment Diagnosis: Major Depressive Disorder Previous ECT Date: 08/27/20 Current Treatment Number: 4 Treatment: Series Interval Clinical Notes: pt remains quite anxious dysphoric ECT Settings Device: THYMATRON DGx Electrode Placement: Bitemporal Program/Pulse Width: 0.50 Energy Percent: 100 Seizure Duration By EEG (in seconds): 51 Medications Administration General Anesthetic: Etomidate (16) Muscle Relaxant: Succinylcholine (80) and Rocuronium (5) Ancillary Medications Analgesics: Torodol - Pre ECT (15) Anti-emetics: Zofran - Pre ECT Miscillaneous Medications: Propofol (30mg) Airway Management Airway Management: Bag Mask Ventilation Treatment Recommendations No Changes Recommended: No change Pt Tolerated Procedure w/o Issue: Yes
--- NOTE | 2020-08-30 14:58 | HO.POSTANES ---
Post Anesthesia Evaluation Post Anesthesia Evaluation Vital Signs: Vital Signs Temp Pulse Resp BP Pulse Ox 08/30/20 14:42 74 20 152/86 H 96 08/30/20 14:37 76 20 142/85 H 97 08/30/20 14:32 97.4 F 70 18 123/74 97 08/30/20 13:47 97.0 F 65 18 173/93 H 99 08/30/20 10:49 83 135/80 08/30/20 09:54 77 146/81 H 08/30/20 05:30 96.6 F L 77 20 146/81 H 95 Anesthesia: General Mental Status: Awake Pain Control: Satisfactory Nausea/Vomiting: None Hydration: Adequate Anesthesia-Related Issues: No Anes. Related Issues
[2020-08-30] MEDS: Ibuprofen 600 MG TABLET PO (21:24)
[2020-08-30] MEDS: hydrOXYzine HCL 50 MG TABLET PO (21:25)
[2020-08-30] MEDS: Atorvastatin Calcium 20 MG TABLET PO (21:25)
[2020-08-30] MEDS: Mirtazapine 30 MG TABLET PO (21:26)
[2020-08-30] MEDS: ALPRAZolam 0.5 MG TABLET 1.5 MG PO (21:26)
--- NOTE | 2020-08-30 21:35 | P.PNPSI_ITS ---
Subjective Subjective Reason For Visit: Depression Interim History: Mireille remains quite agitated, ruminative and anxious. She has tolerated ECT thus far but not noticed any improvement. She needs a lot of support from staff. Mental Status Exam Mental Status Exam Narrative: denies active self-harm in this setting but feels quite fragile hopeless tearful ruminating on what happens if ECT not effective not psychotic no hallucinations or delusions does not respond easily to reassurance Patient Appearance: Appropriate Patient Orientation: Person, Place, Time and Situation Level of Consciousness: Awake Patient Behavior: Passive, Restless, Anxious and Fearful Mood Description: Constricted, Depressed, Anxious, Sad, Nervous and Apprehensive Affect Description: Depressed Patient Cognition Impaired: No Ability to Follow Directions: Poor Speech Pattern: Clear Memory Description: Intact Diagnostics Vital Signs (24Hr): Vital Signs - 24 hr 08/29/20 22:00 08/30/20 05:30 08/30/20 09:54 Temperature 96.6 F L Pulse Rate 78 77 77 Respiratory Rate 20 Blood Pressure 110/76 146/81 H 146/81 H Pulse Oximetry 95 08/30/20 10:49 08/30/20 13:47 08/30/20 14:32 Temperature 97.0 F 97.4 F Pulse Rate 83 65 70 Respiratory Rate 18 18 Blood Pressure 135/80 173/93 H 123/74 Pulse Oximetry 99 97 08/30/20 14:37 08/30/20 14:42 08/30/20 14:57 Temperature 97.4 F Pulse Rate 76 74 60 Respiratory Rate 20 20 18 Blood Pressure 142/85 H 152/86 H 140/83 H Pulse Oximetry 97 96 97 08/30/20 15:17 08/30/20 21:27 Temperature 97.6 F Pulse Rate 83 62 Respiratory Rate 16 Blood Pressure 135/80 144/77 H Pulse Oximetry 97 Body Mass Index 46.3 Labs Results: 08/15/20 15:38 08/19/20 07:49 Imaging Radiology Impressions: ITS Impressions Head CT 08/19/20 00:00 IMPRESSION: No acute intracranial abnormality. Medications Medications Current Medications Generic Name Dose Route Start Last Admin Trade Name Freq PRN Reason Stop Dose Admin Alprazolam 0.25 mg 08/26/20 08:30 08/30/20 10:46 Alprazolam 0.25 Mg Tablet PO Not Given BID@0830,1430 [facility] Alprazolam 1.5 mg 08/26/20 21:00 08/30/20 21:26 Alprazolam 0.5 Mg Tablet PO 1.5 mg BEDTIME ERIN Administration Atorvastatin Calcium 20 mg 08/16/20 21:00 08/30/20 21:25 Atorvastatin Calcium 20 Mg Tablet PO 20 mg BEDTIME ERIN Administration Hydroxyzine HCl 50 mg 08/15/20 23:15 08/30/20 21:25 Hydroxyzine Hcl 50 Mg Tablet PO 50 mg BEDTIME ERIN Administration Hydroxyzine HCl 25 mg 08/16/20 16:10 08/29/20 16:47 Hydroxyzine Hcl 25 Mg Tablet PO 25 mg Q6H PRN Administration Anxiety Ibuprofen 600 mg 08/19/20 20:12 08/30/20 21:24 Ibuprofen 600 Mg Tablet PO 600 mg Q8H PRN Administration Pain, Moderate (Pain Scale 4-6 Levothyroxine Sodium 88 mcg 08/16/20 09:00 08/30/20 09:53 Levothyroxine Sodium 88 Mcg Tablet PO 88 mcg DAILY ERIN Administration Lidocaine 1 appl 08/25/20 13:08 08/25/20 13:55 Lidocaine 5 % Ointment 35 Gm TOPICAL 1 appl Q6H PRN Administration Pain, Moderate (Pain Scale 4-6 Protocol Magnesium Citrate 150 ml 08/17/20 18:31 08/17/20 22:53 Magnesium Citrate 300 Ml Solution PO 150 ml BID PRN Administration Constipation Mirtazapine 30 mg 08/15/20 21:00 08/30/20 21:26 Mirtazapine 30 Mg Tablet PO 30 mg BEDTIME ERIN Administration Nitroglycerin 0.4 mg 08/15/20 18:42 Nitroglycerin 0.4 Mg Tab.Subl SUBLINGUAL Q5M PRN Chest Pain Propranolol HCl 20 mg 08/15/20 21:00 08/30/20 21:27 Propranolol Hcl 20 Mg Tablet PO 20 mg BID ERIN Administration Protocol Quetiapine Fumarate 25 mg 08/26/20 19:15 08/28/20 20:25 Quetiapine Fumarate 25 Mg Tablet PO 25 mg BEDTIME PRN Administration Insomnia Quetiapine Fumarate 25 mg 08/27/20 21:00 08/30/20 21:26 Quetiapine Fumarate 25 Mg Tablet PO 25 mg BID ERIN Administration Quetiapine Fumarate 25 mg 08/27/20 20:08 Quetiapine Fumarate 25 Mg Tablet PO Q6H PRN anxiety/restlessness Sodium Biphosphate/Sodium Phosphate 133 ml 08/17/20 18:31 Sodium Phosphate,[place]-Dibasic 133 Ml Enema [place] DAILY PRN Constipation Trolamine Salicylate 1 appl 08/19/20 13:52 08/20/20 09:33 Trolamine Salicylate 10 % Cream 85 Gm Tube TOPICAL 1 appl QID PRN Administration Pain, Moderate (Pain Scale 4-6 Protocol Vortioxetine 5 mg 08/28/20 09:00 08/30/20 09:53 Vortioxetine Hydrobromide 5 Mg Tablet PO 5 mg DAILY ERIN Administration Allergies Allergies Allergy/AdvReac Type Severity Reaction Status Date / Time Iodinated Contrast Media Allergy Intermediate Hives Verified 08/15/20 12:27 Assessment & Plan Assessment & Plan (1) Major depressive disorder, recurrent severe without psychotic features: Status: Acute Code(s): F33.2 - Major depressive disorder, recurrent severe without psychotic features Assessment and Plan: CT ECT inc seroquel as tolerated trintellix started Greater than 50% of the session was spent on counseling and/or coordination of care Patient educated on: diagnosis, medication risk/benefits and ECT Reason for contiued inpatient stay Substantial Risk for: harm to self
[2020-08-31 06:15] VITALS: BP 116/60; PULSE 67; RESP 18; TEMP 36; O2SAT 96
[2020-08-31] MEDS: Vortioxetine Hydrobromide 5 MG TABLET PO (08:52)
[2020-08-31] MEDS: QUEtiapine Fumarate 25 MG TABLET PO ×2 (08:52→09:34)
[2020-08-31] MEDS: Levothyroxine Sodium 88 MCG TABLET PO (08:52)
[2020-08-31 08:53] VITALS: BP 116/60; PULSE 67
[2020-08-31] MEDS: Propranolol HCL 20 MG TABLET PO ×2 (08:53→21:37)
[2020-08-31] MEDS: ALPRAZolam 0.25 MG TABLET PO (08:55)
[2020-08-31] MEDS: clonazePAM 0.5 MG TABLET PO (12:39)
--- NOTE | 2020-08-31 20:25 | HO.PSYCHPN ---
Subjective Subjective Reason For Visit: Depression Subjective Notes: Conditional Voluntary Interim History: patient come when seen in her room but when engaged with becomes severely anxious and agitated. Alert knows year month place date of and address names and her family but states she is feeling like she is in a dream has ongoing severe anxiety states she should be at home with her . Attempt to remind her that she had made 2 recent suicide attempts. Milieu appears difficult as does separation complains of heavy legs bilaterally no clear stiffness on exam patient limited by lack of coping skills does not attend group Medication Compliance: Yes Side effects from medications: Yes (unclear) Mental Status Exam Mental Status Exam Narrative: denies active self-harm in this setting but feels quite fragile hopeless tearful ruminating on what happens if ECT not effective not psychotic no hallucinations or delusions does not respond easily to reassurance Patient Appearance: Appropriate Patient Orientation: Person, Place, Time and Situation Level of Consciousness: Awake and Follows Commands Patient Behavior: Passive, Restless, Anxious and Fearful Mood Description: Constricted, Depressed, Anxious, Sad, Nervous and Apprehensive Affect Description: Depressed, Anxious, Nervous and Apprehensive Patient Cognition Impaired: No Ability to Follow Directions: Poor Speech Pattern: Clear and Perseverating Memory Description: Intact Hallucinations: None Delusions: Not Present Perceptual Disturbances: Derealization Thought Process: Distracted and Rumination Thought Content: positive for Obsessional Thoughts, positive for Circumstantial and positive for Preoccupation Depressive Symptoms: Increased Anxiety, Diff. Making Decisions and Difficulty Concentrating Judgement: Fair Diagnostics Vital Signs (24Hr): Vital Signs - 24 hr 08/30/20 21:27 08/31/20 06:15 08/31/20 08:53 Temperature 96.8 F Pulse Rate 62 67 67 Respiratory Rate 18 Blood Pressure 144/77 H 116/60 116/60 Pulse Oximetry 96 Body Mass Index 46.3 Labs Results: 08/15/20 15:38 08/19/20 07:49 Imaging Radiology Impressions: ITS Impressions Head CT 08/19/20 00:00 IMPRESSION: No acute intracranial abnormality. Medications Medications Current Medications Generic Name Dose Route Start Last Admin Trade Name Freq PRN Reason Stop Dose Admin Atorvastatin Calcium 20 mg 08/16/20 21:00 08/30/20 21:25 Atorvastatin Calcium 20 Mg Tablet PO 20 mg BEDTIME ERIN Administration Clonazepam 2 mg 08/31/20 21:00 Clonazepam 1 Mg Tablet PO BEDTIME ERIN Hydroxyzine HCl 50 mg 08/15/20 23:15 08/30/20 21:25 Hydroxyzine Hcl 50 Mg Tablet PO 50 mg BEDTIME ERIN Administration Hydroxyzine HCl 25 mg 08/16/20 16:10 08/29/20 16:47 Hydroxyzine Hcl 25 Mg Tablet PO 25 mg Q6H PRN Administration Anxiety Ibuprofen 600 mg 08/19/20 20:12 08/30/20 21:24 Ibuprofen 600 Mg Tablet PO 600 mg Q8H PRN Administration Pain, Moderate (Pain Scale 4-6 Levothyroxine Sodium 88 mcg 08/16/20 09:00 08/31/20 08:52 Levothyroxine Sodium 88 Mcg Tablet PO 88 mcg DAILY ERIN Administration Lidocaine 1 appl 08/25/20 13:08 08/25/20 13:55 Lidocaine 5 % Ointment 35 Gm TOPICAL 1 appl Q6H PRN Administration Pain, Moderate (Pain Scale 4-6 Protocol Magnesium Citrate 150 ml 08/17/20 18:31 08/17/20 22:53 Magnesium Citrate 300 Ml Solution PO 150 ml BID PRN Administration Constipation Mirtazapine 30 mg 08/15/20 21:00 08/30/20 21:26 Mirtazapine 30 Mg Tablet PO 30 mg BEDTIME ERIN Administration Nitroglycerin 0.4 mg 08/15/20 18:42 Nitroglycerin 0.4 Mg Tab.Subl SUBLINGUAL Q5M PRN Chest Pain Propranolol HCl 20 mg 08/15/20 21:00 08/31/20 08:53 Propranolol Hcl 20 Mg Tablet PO 20 mg BID ERIN Administration Protocol Quetiapine Fumarate 25 mg 08/26/20 19:15 08/28/20 20:25 Quetiapine Fumarate 25 Mg Tablet PO 25 mg BEDTIME PRN Administration Insomnia Quetiapine Fumarate 25 mg 08/27/20 20:08 08/31/20 09:34 Quetiapine Fumarate 25 Mg Tablet PO 25 mg Q6H PRN Administration anxiety/restlessness Quetiapine Fumarate 50 mg 08/31/20 21:00 Quetiapine Fumarate 50 Mg Tablet PO BEDTIME ERIN Quetiapine Fumarate 25 mg 08/31/20 09:00 08/31/20 08:52 Quetiapine Fumarate 25 Mg Tablet PO 25 mg DAILY ERIN Administration Sodium Biphosphate/Sodium Phosphate 133 ml 08/17/20 18:31 Sodium Phosphate,[place]-Dibasic 133 Ml Enema [place] DAILY PRN Constipation Trolamine Salicylate 1 appl 08/19/20 13:52 08/20/20 09:33 Trolamine Salicylate 10 % Cream 85 Gm Tube TOPICAL 1 appl QID PRN Administration Pain, Moderate (Pain Scale 4-6 Protocol Vortioxetine 5 mg 08/28/20 09:00 08/31/20 08:52 Vortioxetine Hydrobromide 5 Mg Tablet PO 5 mg DAILY ERIN Administration Allergies Allergies Allergy/AdvReac Type Severity Reaction Status Date / Time Iodinated Contrast Media Allergy Intermediate Hives Verified 08/15/20 12:27 Assessment & Plan Assessment & Plan (1) Major depressive disorder, recurrent severe without psychotic features: Status: Acute Code(s): F33.2 - Major depressive disorder, recurrent severe without psychotic features Assessment and Plan: patient with severe anxiety sense of derealization alert oriented states she feels confused at times. Complains of difficulty with legs feeling heavy no gross motor Ohri lateralizing findings question ECT side effect with the realization and confusion status post bitemporal ECT will hold tomorrow's ECT and try flumazenil and unilateral treatment patient with limited stress tolerance denying active self-harm will stop alprazolam and go back to clonazepam which the patient is perseverating about increase Seroquel as tolerated patient cautioned to maintain hydration will check vital signs t.i.d. Greater than 50% of the session was spent on counseling and/or coordination of care Patient educated on: diagnosis, medication risk/benefits, therapeutic strategies and medical condition Informed Consent: further education needed Reason for contiued inpatient stay Substantial Risk for: harm to self, inability to function and rapid decompensation
[2020-08-31 21:37] VITALS: BP 173/83; PULSE 71
[2020-08-31] MEDS: clonazePAM 1 MG TABLET 2 MG PO (21:37)
[2020-08-31] MEDS: Mirtazapine 30 MG TABLET PO (21:37)
[2020-08-31] MEDS: hydrOXYzine HCL 50 MG TABLET PO (21:44)
[2020-08-31] MEDS: Atorvastatin Calcium 20 MG TABLET PO (21:44)
[2020-08-31] MEDS: QUEtiapine Fumarate 50 MG TABLET PO (21:44)
[2020-09-01] VITALS (10 sets, daily range): BP systolic 118–149; BP diastolic 67–87; PULSE 66–78; RESP 18; TEMP 36.4; O2SAT 94
[2020-09-01] MEDS: Propranolol HCL 20 MG TABLET PO ×2 (09:00→21:28)
[2020-09-01] MEDS: QUEtiapine Fumarate 25 MG TABLET PO (09:00)
[2020-09-01] MEDS: Levothyroxine Sodium 88 MCG TABLET PO (09:00)
[2020-09-01] MEDS: Vortioxetine Hydrobromide 5 MG TABLET PO (09:00)
--- NOTE | 2020-09-01 10:11 | P.PNPSI_ITS ---
Subjective Subjective Reason For Visit: Depression Subjective Notes: Conditional Voluntary Interim History: patient continues to be a severely anxious ruminating difficulty accepting hospitalization complains of difficulty with sleep Medication Compliance: Yes Side effects from medications: No Attending Groups: No Mental Status Exam Mental Status Exam Narrative: denies active self-harm in this setting but feels quite fragile hopeless tearful ruminating on what happens if ECT not effective not psychotic no hallucinations or delusions does not respond easily to reassurance Patient Appearance: Appropriate Patient Orientation: Person, Place, Time and Situation Level of Consciousness: Awake and Follows Commands Patient Behavior: Passive, Restless, Anxious and Fearful Mood Description: Constricted, Depressed, Anxious, Sad, Nervous and Apprehensive Affect Description: Depressed, Anxious, Nervous and Apprehensive Patient Cognition Impaired: No Ability to Follow Directions: Poor Speech Pattern: Clear and Perseverating Memory Description: Intact Hallucinations: None Delusions: Not Present Perceptual Disturbances: Derealization Thought Process: Distracted and Rumination Thought Content: positive for Obsessional Thoughts, positive for Circumstantial and positive for Preoccupation Depressive Symptoms: Increased Anxiety, Diff. Making Decisions and Difficulty Concentrating Judgement: Fair Diagnostics Vital Signs (24Hr): Vital Signs - 24 hr 08/31/20 21:37 09/01/20 05:40 09/01/20 06:02 Temperature 97.6 F 97.6 F Pulse Rate 71 66 66 Respiratory Rate 18 18 Blood Pressure 173/83 H 145/83 H 145/83 H Pulse Oximetry 94 94 09/01/20 09:00 Temperature Pulse Rate 66 Respiratory Rate Blood Pressure 145/83 H Pulse Oximetry Body Mass Index 46.3 Labs Results: 08/15/20 15:38 08/19/20 07:49 Imaging Radiology Impressions: ITS Impressions Head CT 08/19/20 00:00 IMPRESSION: No acute intracranial abnormality. Medications Medications Current Medications Generic Name Dose Route Start Last Admin Trade Name Freq PRN Reason Stop Dose Admin Atorvastatin Calcium 20 mg 08/16/20 21:00 08/31/20 21:44 Atorvastatin Calcium 20 Mg Tablet PO 20 mg BEDTIME ERIN Administration Clonazepam 2 mg 08/31/20 21:00 08/31/20 21:37 Clonazepam 1 Mg Tablet PO 2 mg BEDTIME ERIN Administration Hydroxyzine HCl 50 mg 08/15/20 23:15 08/31/20 21:44 Hydroxyzine Hcl 50 Mg Tablet PO 50 mg BEDTIME ERIN Administration Hydroxyzine HCl 25 mg 08/16/20 16:10 08/29/20 16:47 Hydroxyzine Hcl 25 Mg Tablet PO 25 mg Q6H PRN Administration Anxiety Ibuprofen 600 mg 08/19/20 20:12 08/30/20 21:24 Ibuprofen 600 Mg Tablet PO 600 mg Q8H PRN Administration Pain, Moderate (Pain Scale 4-6 Levothyroxine Sodium 88 mcg 08/16/20 09:00 09/01/20 09:00 Levothyroxine Sodium 88 Mcg Tablet PO 88 mcg DAILY ERIN Administration Lidocaine 1 appl 08/25/20 13:08 08/25/20 13:55 Lidocaine 5 % Ointment 35 Gm TOPICAL 1 appl Q6H PRN Administration Pain, Moderate (Pain Scale 4-6 Protocol Magnesium Citrate 150 ml 08/17/20 18:31 08/17/20 22:53 Magnesium Citrate 300 Ml Solution PO 150 ml BID PRN Administration Constipation Mirtazapine 30 mg 08/15/20 21:00 08/31/20 21:37 Mirtazapine 30 Mg Tablet PO 30 mg BEDTIME ERIN Administration Nitroglycerin 0.4 mg 08/15/20 18:42 Nitroglycerin 0.4 Mg Tab.Subl SUBLINGUAL Q5M PRN Chest Pain Propranolol HCl 20 mg 08/15/20 21:00 09/01/20 09:00 Propranolol Hcl 20 Mg Tablet PO 20 mg BID ERIN Administration Protocol Quetiapine Fumarate 25 mg 08/26/20 19:15 08/28/20 20:25 Quetiapine Fumarate 25 Mg Tablet PO 25 mg BEDTIME PRN Administration Insomnia Quetiapine Fumarate 25 mg 08/27/20 20:08 08/31/20 09:34 Quetiapine Fumarate 25 Mg Tablet PO 25 mg Q6H PRN Administration anxiety/restlessness Quetiapine Fumarate 50 mg 08/31/20 21:00 08/31/20 21:44 Quetiapine Fumarate 50 Mg Tablet PO 50 mg BEDTIME ERIN Administration Quetiapine Fumarate 25 mg 08/31/20 09:00 09/01/20 09:00 Quetiapine Fumarate 25 Mg Tablet PO 25 mg DAILY ERIN Administration Sodium Biphosphate/Sodium Phosphate 133 ml 08/17/20 18:31 Sodium Phosphate,[place]-Dibasic 133 Ml Enema [place] DAILY PRN Constipation Trolamine Salicylate 1 appl 08/19/20 13:52 08/20/20 09:33 Trolamine Salicylate 10 % Cream 85 Gm Tube TOPICAL 1 appl QID PRN Administration Pain, Moderate (Pain Scale 4-6 Protocol Vortioxetine 5 mg 08/28/20 09:00 09/01/20 09:00 Vortioxetine Hydrobromide 5 Mg Tablet PO 5 mg DAILY ERIN Administration Allergies Allergies Allergy/AdvReac Type Severity Reaction Status Date / Time Iodinated Contrast Media Allergy Intermediate Hives Verified 08/15/20 12:27 Assessment & Plan Assessment & Plan (1) Major depressive disorder, recurrent severe without psychotic features: Status: Acute Code(s): F33.2 - Major depressive disorder, recurrent severe without psychotic features Assessment and Plan: patient with severe anxiety sense of derealization alert oriented states she feels confused at times. Complains of difficulty with legs feeling heavy no gross motor Ohri lateralizing findings question ECT side effect with the realization and confusion status post bitemporal ECT will hold tomorrow's ECT and try flumazenil and unilateral treatment patient with limited stress tolerance denying active self-harm will stop alprazolam and go back to clonazepam which the patient is perseverating about increase Seroquel as tolerated patient cautioned to maintain hydration will check vital signs t.i.d. Greater than 50% of the session was spent on counseling and/or coordination of care Patient educated on: diagnosis, medication risk/benefits and ECT Reason for contiued inpatient stay Substantial Risk for: harm to self
[2020-09-01] MEDS: clonazePAM 1 MG TABLET 2 MG PO (21:27)
[2020-09-01] MEDS: QUEtiapine Fumarate 50 MG TABLET PO (21:28)
[2020-09-01] MEDS: hydrOXYzine HCL 50 MG TABLET PO (21:28)
[2020-09-01] MEDS: Mirtazapine 30 MG TABLET PO (21:28)
[2020-09-01] MEDS: Atorvastatin Calcium 20 MG TABLET PO (21:28)
[2020-09-02] VITALS (8 sets, daily range): BP systolic 122–151; BP diastolic 66–88; PULSE 66–88; RESP 16; TEMP 36.2; O2SAT 95; BMI 36.9
[2020-09-02] MEDS: Propranolol HCL 20 MG TABLET PO ×2 (08:46→21:42)
[2020-09-02] MEDS: Levothyroxine Sodium 88 MCG TABLET PO (08:46)
[2020-09-02] MEDS: Vortioxetine Hydrobromide 5 MG TABLET PO (08:46)
[2020-09-02] MEDS: QUEtiapine Fumarate 25 MG TABLET PO ×2 (08:47→11:36)
[2020-09-02] MEDS: Atorvastatin Calcium 20 MG TABLET PO (21:41)
[2020-09-02] MEDS: clonazePAM 1 MG TABLET 2 MG PO (21:41)
[2020-09-02] MEDS: hydrOXYzine HCL 50 MG TABLET PO (21:41)
[2020-09-02] MEDS: QUEtiapine Fumarate 50 MG TABLET PO (21:41)
[2020-09-02] MEDS: Mirtazapine 30 MG TABLET PO (21:42)
[2020-09-03] VITALS (12 sets, daily range): BP systolic 106–152; BP diastolic 54–88; PULSE 61–96; RESP 12–20; TEMP 36–36.6; O2SAT 92–97; BMI 36.9
[2020-09-03] MEDS: QUEtiapine Fumarate 25 MG TABLET PO ×3 (05:50→16:55)
--- NOTE | 2020-09-03 06:06 | HO.ECTPROC ---
ECT Procedure Note Diagnosis/Treatment Diagnosis: Major Depressive Disorder Previous ECT Date: 09/03/20 Current Treatment Number: 5 Treatment: Series Interval Clinical Notes: Perseverated re no sleep. Frequently stated she wants to go home. Irritable ECT Settings Device: THYMATRON DGx Electrode Placement: Right Unilateral Program/Pulse Width: 0.50 Energy Percent: 100 Seizure Duration By EEG (in seconds): 72 By Motor Observation (in seconds): 59 Medications Administration General Anesthetic: Etomidate (16) Muscle Relaxant: Succinylcholine (80) Ancillary Medications Analgesics: Torodol - Pre ECT (15) Anti-emetics: Zofran - Pre ECT (4) Miscillaneous Medications: Flumazenil (0.5 pre-ECT but not too early) and Other (Lorazepam 1 mg post-ECT) Treatment Recommendations No Changes Recommended: No change Pt Tolerated Procedure w/o Issue: Yes
--- NOTE | 2020-09-03 07:15 | P.CONAN_ITS ---
[facility] Past Medical History Medical History Constipation Endometriosis Hypercholesteremia Hypertension Hypothyroidism Major depressive disorder, recurrent severe without psychotic features Functional capacity: independent ambulation Surgical History Surgical History Hx of appendectomy Social History Social History Household Members: Spouse Housing: House Are you a primary animal care attendant to a significant other at home: No Do you presently have visiting nurse or other home services: No Alcohol intake: never Smoking Status: Former smoker Years Smoked: 5 Smoked in Last 30 Days: No Use of substances other than those prescribed or required for medical reasons: No Currently Displaying Signs/Symptoms of Drug Intoxication Withdrawal: No Have you been hit, kicked, punched, or otherwise hurt by someone within the past year? If so, by whom?: No Do you feel safe in your current relationship?: Yes Is there a partner from a previous relationship who is making you feel unsafe now?: No Are you made to feel afraid or neglected: No Spiritual Healthcare Practices: NONE IDENTIFIED [facility] Healthcare Practices: [employer] of [place], Zoroastrianism Advance Directives: No Advance Directives Information Provided: No Advance Directives on File: No Do you have thoughts of harming others: None Do you have a plan to hurt others: No Plan Recently lost weight without trying: No service: No Sexual orientation: Straight/Heterosexual Meds Allergies Allergy/AdvReac Type Severity Reaction Status Date / Time Iodinated Contrast Media Allergy Intermediate Hives Verified 09/03/20 06:29 Home Medications Medication Instructions Recorded Confirmed Type atorvastatin 10 mg PO DAILY 08/15/20 08/15/20 History clonazepam 3 mg PO BEDTIME 08/15/20 08/15/20 History escitalopram oxalate [Lexapro] 5 mg PO BEDTIME 08/15/20 08/15/20 History hydroxyzine HCl 50 mg PO BEDTIME 08/15/20 08/15/20 History levothyroxine 88 mcg PO DAILY 08/15/20 08/15/20 History mirtazapine 30 mg PO BEDTIME 08/15/20 08/15/20 History nitroglycerin 0.4 mg SUBLINGUAL Q5M PRN 08/15/20 08/15/20 History propranolol 20 mg PO BID 08/15/20 08/15/20 History topiramate 75 mg PO BEDTIME 08/15/20 08/15/20 History ziprasidone HCl 20 mg PO DAILY@1700 08/15/20 08/15/20 History Exam Exam Date and Time: September 03, 2020 07 Height,Weight and Vital Signs: Height 5 ft 2 in Weight 91.626 kg Last Vital Signs Temp 97.8 F 09/03/20 06:10 Pulse 80 09/03/20 06:10 Resp 16 09/03/20 06:10 BP 148/88 H 09/03/20 06:10 Pulse Ox 97 09/03/20 06:10 Pertinent Lab Results Pertinent Lab Results: Laboratory Tests 08/15/20 08/15/20 08/15/20 11:56 11:57 15:38 WBC 6.8 RBC 5.37 Hgb 15.1 Hct 47.4 H MCV 88.3 MCH 28.1 MCHC 31.9 RDW 14.2 Plt Count 326 MPV 10.1 Immature Gran % (Auto) 0.4 Neut % (Auto) 72.0 Lymph % (Auto) 19.1 L [place] % (Auto) 5.8 Eos % (Auto) 2.1 Baso % (Auto) 0.6 Lymph # (Auto) 1.3 [place] # (Auto) 0.4 Eos # (Auto) 0.1 Baso # (Auto) 0.0 Abs Immat Gran (auto) 0.03 Absolute Neuts (auto) 4.9 Absolute Nucleated RBC 0.000 Nucleated RBC % (auto) 0.0 PT INR APTT Sodium Potassium Chloride Carbon Dioxide Anion Gap BUN Creatinine Estim Creat Clear Calc Estimated GFR Random Glucose Fasting Glucose Calcium Total Bilirubin Direct Bilirubin AST ALT Alkaline Phosphatase Total Protein Albumin Triglycerides Cholesterol LDL Cholesterol, Calc HDL Cholesterol Vitamin B12 Folate TSH Urine Color YELLOW Urine Appearance HAZY Urine pH 5.5 Ur Specific [place] >= 1.030 H Urine Protein NEG Urine Glucose (UA) NEG Urine Ketones 40 Urine Blood NEG Urine Nitrite NEG Ur Leukocyte Esterase NEG Salicylates Urine Opiates Screen Not Detected Acetaminophen Ur Barbiturates Screen Not Detected Ur Phencyclidine Scrn Not Detected Ur Amphetamines Screen Not Detected U Benzodiazepines Scrn POSITIVE H Urine Cocaine Screen Not Detected U Marijuana (THC) Screen Not Detected Ethyl Alcohol Coronavirus (PCR) 08/15/20 08/15/2020 15:38 15:38 15:38 WBC RBC Hgb Hct MCV MCH MCHC RDW Plt Count MPV Immature Gran % (Auto) Neut % (Auto) Lymph % (Auto) [place] % (Auto) Eos % (Auto) Baso % (Auto) Lymph # (Auto) [place] # (Auto) Eos # (Auto) Baso # (Auto) Abs Immat Gran (auto) Absolute Neuts (auto) Absolute Nucleated RBC Nucleated RBC % (auto) PT INR APTT Sodium 141 Potassium 4.0 Chloride 106 Carbon Dioxide 24 Anion Gap 15 BUN 10 Creatinine 0.91 Estim Creat Clear Calc 67.5 Estimated GFR > 60 Random Glucose 125 H Fasting Glucose Calcium 9.7 Total Bilirubin 0.4 Direct Bilirubin 0.2 AST 18 ALT 17 Alkaline Phosphatase 99 Total Protein 7.0 Albumin 4.2 Triglycerides Cholesterol LDL Cholesterol, Calc HDL Cholesterol Vitamin B12 Folate TSH Urine Color Urine Appearance Urine pH Ur Specific [place] Urine Protein Urine Glucose (UA) Urine Ketones Urine Blood Urine Nitrite Ur Leukocyte Esterase Salicylates < 5.0 L Urine Opiates Screen Acetaminophen < 1 Ur Barbiturates Screen Ur Phencyclidine Scrn Ur Amphetamines Screen U Benzodiazepines Scrn Urine Cocaine Screen U Marijuana (THC) Screen Ethyl Alcohol < 10 Coronavirus (PCR) 08/15/20 08/17/20 08/19/20 15:38 09:11 07:49 WBC RBC Hgb Hct MCV MCH MCHC RDW Plt Count MPV Immature Gran % (Auto) Neut % (Auto) Lymph % (Auto) [place] % (Auto) Eos % (Auto) Baso % (Auto) Lymph # (Auto) [place] # (Auto) Eos # (Auto) Baso # (Auto) Abs Immat Gran (auto) Absolute Neuts (auto) Absolute Nucleated RBC Nucleated RBC % (auto) PT 11.7 INR 1.0 APTT 34.8 Sodium 138 Potassium 4.2 Chloride 103 Carbon Dioxide 27 Anion Gap 12 BUN 12 Creatinine 0.92 Estim Creat Clear Calc 66.8 Estimated GFR > 60 Random Glucose Fasting Glucose 112 H Calcium 9.4 Total Bilirubin 0.5 Direct Bilirubin AST 26 D ALT 18 Alkaline Phosphatase 99 Total Protein 6.7 Albumin 4.1 Triglycerides 119 Cholesterol 151 LDL Cholesterol, Calc 76 HDL Cholesterol 52 Vitamin B12 Folate TSH 1.07 Urine Color Urine Appearance Urine pH Ur Specific [place] Urine Protein Urine Glucose (UA) Urine Ketones Urine Blood Urine Nitrite Ur Leukocyte Esterase Salicylates Urine Opiates Screen Acetaminophen Ur Barbiturates Screen Ur Phencyclidine Scrn Ur Amphetamines Screen U Benzodiazepines Scrn Urine Cocaine Screen U Marijuana (THC) Screen Ethyl Alcohol Coronavirus (PCR) NEGATIVE 08/19/20 07:49 WBC RBC Hgb Hct MCV MCH MCHC RDW Plt Count MPV Immature Gran % (Auto) Neut % (Auto) Lymph % (Auto) [place] % (Auto) Eos % (Auto) Baso % (Auto) Lymph # (Auto) [place] # (Auto) Eos # (Auto) Baso # (Auto) Abs Immat Gran (auto) Absolute Neuts (auto) Absolute Nucleated RBC Nucleated RBC % (auto) PT INR APTT Sodium Potassium Chloride Carbon Dioxide Anion Gap BUN Creatinine Estim Creat Clear Calc Estimated GFR Random Glucose Fasting Glucose Calcium Total Bilirubin Direct Bilirubin AST ALT Alkaline Phosphatase Total Protein Albumin Triglycerides Cholesterol LDL Cholesterol, Calc HDL Cholesterol Vitamin B12 364 Folate 12.4 TSH Urine Color Urine Appearance Urine pH Ur Specific [place] Urine Protein Urine Glucose (UA) Urine Ketones Urine Blood Urine Nitrite Ur Leukocyte Esterase Salicylates Urine Opiates Screen Acetaminophen Ur Barbiturates Screen Ur Phencyclidine Scrn Ur Amphetamines Screen U Benzodiazepines Scrn Urine Cocaine Screen U Marijuana (THC) Screen Ethyl Alcohol Coronavirus (PCR) Airway Mallampati Class: II TM Dist: >3cm Neck ROM: Full Assessment and Plan Assessment Anesthesia Assessment: Anesthesia Plan Discussed and Chart Reviewed Final Anesthetic Review NPO: Yes ASA Class: II Final Preanesthetic Review: No Changes in Pt Med Stat, Meds/Allgs Chart Reviewed, Consent Obtained/Reviewed and Anes Risks/Benef Reviewed Patient Risk: Low Procedure Risk: Low Assessment/Block/Sedation in SS: Assess/Block/Sedation-SS Anesthetic Plan Anesthetic Plan: GA Disposition: Standard PACU
[2020-09-03] MEDS: Propranolol HCL 20 MG TABLET PO ×2 (09:02→21:35)
[2020-09-03] MEDS: Levothyroxine Sodium 88 MCG TABLET PO (09:03)
[2020-09-03] MEDS: Vortioxetine Hydrobromide 5 MG TABLET PO (09:04)
[2020-09-03] MEDS: clonazePAM 1 MG TABLET 2 MG PO (21:33)
[2020-09-03] MEDS: QUEtiapine Fumarate 50 MG TABLET PO (21:34)
[2020-09-03] MEDS: Mirtazapine 30 MG TABLET PO (21:34)
[2020-09-03] MEDS: Atorvastatin Calcium 20 MG TABLET PO (21:34)
[2020-09-03] MEDS: hydrOXYzine HCL 50 MG TABLET PO (21:34)
--- NOTE | 2020-09-03 22:21 | P.PNPSI_ITS ---
Subjective Subjective Reason For Visit: Depression Subjective Notes: Conditional Voluntary Interim History: patient continues to ruminate seems somewhat calmer tolerated ECT unilaterally today Medication Compliance: Yes Side effects from medications: No Mental Status Exam Mental Status Exam Narrative: denies active self-harm in this setting but feels quite fragile hopeless tearful ruminating on what happens if ECT not effective not psychotic no hallucinations or delusions does not respond easily to reassurance Patient Appearance: Appropriate Patient Orientation: Person, Place, Time and Situation Level of Consciousness: Awake and Follows Commands Patient Behavior: Passive, Restless, Anxious and Fearful Mood Description: Constricted, Depressed, Anxious, Sad, Nervous and Apprehensive Affect Description: Depressed, Anxious, Nervous and Apprehensive Patient Cognition Impaired: No Ability to Follow Directions: Poor Speech Pattern: Clear and Perseverating Memory Description: Intact Hallucinations: None Delusions: Not Present Perceptual Disturbances: Derealization Thought Process: Distracted and Rumination Thought Content: positive for Obsessional Thoughts, positive for Circumstantial and positive for Preoccupation Depressive Symptoms: Increased Anxiety, Diff. Making Decisions and Difficulty Concentrating Judgement: Fair Diagnostics Vital Signs (24Hr): Vital Signs - 24 hr 09/03/20 06:00 09/03/20 06:10 09/03/20 07:17 Temperature 96.8 F 97.8 F 97.8 F Pulse Rate 83 80 61 Respiratory Rate 18 16 12 Blood Pressure 152/85 H 148/88 H 107/54 L Pulse Oximetry 96 97 95 09/03/20 07:22 09/03/20 07:27 09/03/20 07:32 Temperature Pulse Rate 73 85 73 Respiratory Rate 17 17 18 Blood Pressure 106/59 L 136/77 146/80 H Pulse Oximetry 97 96 94 09/03/20 07:37 09/03/20 07:52 09/03/20 08:20 Temperature 97.6 F Pulse Rate 69 96 62 Respiratory Rate 20 18 16 Blood Pressure 144/78 H 142/80 H 121/78 Pulse Oximetry 92 94 94 09/03/20 09:02 09/03/20 18:36 09/03/20 21:35 Temperature 97 F Pulse Rate 83 85 85 Respiratory Rate Blood Pressure 152/85 H 128/62 128/85 Pulse Oximetry Body Mass Index 36.9 Labs Results: 08/15/20 15:38 08/19/20 07:49 Imaging Radiology Impressions: ITS Impressions Head CT 08/19/20 00:00 IMPRESSION: No acute intracranial abnormality. Medications Medications Current Medications Generic Name Dose Route Start Last Admin Trade Name Freq PRN Reason Stop Dose Admin Atorvastatin Calcium 20 mg 08/16/20 21:00 09/03/20 21:34 Atorvastatin Calcium 20 Mg Tablet PO 20 mg BEDTIME ERIN Administration Clonazepam 2 mg 08/31/20 21:00 09/03/20 21:33 Clonazepam 1 Mg Tablet PO 2 mg BEDTIME ERIN Administration Hydroxyzine HCl 50 mg 08/15/20 23:15 09/03/20 21:34 Hydroxyzine Hcl 50 Mg Tablet PO 50 mg BEDTIME ERIN Administration Hydroxyzine HCl 25 mg 08/16/20 16:10 08/29/20 16:47 Hydroxyzine Hcl 25 Mg Tablet PO 25 mg Q6H PRN Administration Anxiety Ibuprofen 600 mg 08/19/20 20:12 08/30/20 21:24 Ibuprofen 600 Mg Tablet PO 600 mg Q8H PRN Administration Pain, Moderate (Pain Scale 4-6 Levothyroxine Sodium 88 mcg 08/16/20 09:00 09/03/20 09:03 Levothyroxine Sodium 88 Mcg Tablet PO 88 mcg DAILY ERIN Administration Lidocaine 1 appl 08/25/20 13:08 08/25/20 13:55 Lidocaine 5 % Ointment 35 Gm TOPICAL 1 appl Q6H PRN Administration Pain, Moderate (Pain Scale 4-6 Protocol Magnesium Citrate 150 ml 08/17/20 18:31 08/17/20 22:53 Magnesium Citrate 300 Ml Solution PO 150 ml BID PRN Administration Constipation Mirtazapine 30 mg 08/15/20 21:00 09/03/20 21:34 Mirtazapine 30 Mg Tablet PO 30 mg BEDTIME ERIN Administration Nitroglycerin 0.4 mg 08/15/20 18:42 Nitroglycerin 0.4 Mg Tab.Subl SUBLINGUAL Q5M PRN Chest Pain Propranolol HCl 20 mg 08/15/20 21:00 09/03/20 21:35 Propranolol Hcl 20 Mg Tablet PO 20 mg BID ERIN Administration Protocol Quetiapine Fumarate 25 mg 08/26/20 19:15 08/28/20 20:25 Quetiapine Fumarate 25 Mg Tablet PO 25 mg BEDTIME PRN Administration Insomnia Quetiapine Fumarate 25 mg 08/27/20 20:08 09/03/20 16:54 Quetiapine Fumarate 25 Mg Tablet PO 25 mg Q6H PRN Administration anxiety/restlessness Quetiapine Fumarate 25 mg 09/03/20 06:00 09/03/20 05:50 Quetiapine Fumarate 25 Mg Tablet PO 25 mg DAILY@0600 ERIN Administration Quetiapine Fumarate 25 mg 09/03/20 13:00 09/03/20 16:55 Quetiapine Fumarate 25 Mg Tablet PO 25 mg DAILY@1300 ERIN Administration Quetiapine Fumarate 75 mg 09/04/20 21:00 Quetiapine Fumarate 25 Mg Tablet PO BEDTIME ERIN Sodium Biphosphate/Sodium Phosphate 133 ml 08/17/20 18:31 Sodium Phosphate,[place]-Dibasic 133 Ml Enema [place] DAILY PRN Constipation Trolamine Salicylate 1 appl 08/19/20 13:52 08/20/20 09:33 Trolamine Salicylate 10 % Cream 85 Gm Tube TOPICAL 1 appl QID PRN Administration Pain, Moderate (Pain Scale 4-6 Protocol Vortioxetine 10 mg 09/04/20 09:00 Vortioxetine Hydrobromide 5 Mg Tablet PO DAILY ERIN Allergies Allergies Allergy/AdvReac Type Severity Reaction Status Date / Time Iodinated Contrast Media Allergy Intermediate Hives Verified 09/03/20 06:29 Assessment & Plan Assessment & Plan (1) Major depressive disorder, recurrent severe without psychotic features: Status: Acute Code(s): F33.2 - Major depressive disorder, recurrent severe without psychotic features Assessment and Plan: continue ECT increase Seroquel at bedtime Greater than 50% of the session was spent on counseling and/or coordination of care
[2020-09-04 06:25] VITALS: BP 101/60; PULSE 65; RESP 16; TEMP 36.3
[2020-09-04 09:39] VITALS: BP 101/60; PULSE 65
[2020-09-04] MEDS: QUEtiapine Fumarate 25 MG TABLET PO ×2 (09:39→14:30)
[2020-09-04] MEDS: Propranolol HCL 20 MG TABLET PO ×2 (09:39→22:47)
[2020-09-04] MEDS: Vortioxetine Hydrobromide 5 MG TABLET 10 MG PO (09:40)
[2020-09-04] MEDS: Levothyroxine Sodium 88 MCG TABLET PO (09:41)
--- NOTE | 2020-09-04 11:40 | HO.PSYCHPN ---
Subjective Subjective Reason For Visit: Depression Interim History: patient continues depressed, anxious and ruminating; seems to be tolerating ECT . Review of Systems Review of Systems no changes Reports dizziness (denies dizzines ) Mental Status Exam Mental Status Exam Narrative: denies active self-harm in this setting but feels sad, quite fragile hopeless tearful ruminating on what happens if ECT not effective not psychotic no hallucinations or delusions does not respond easily to reassurance Patient Appearance: Appropriate Patient Orientation: Person, Place, Time and Situation Level of Consciousness: Awake and Follows Commands Patient Behavior: Passive, Restless, Anxious and Fearful Mood Description: Constricted, Depressed, Anxious, Sad, Nervous and Apprehensive Affect Description: Depressed, Anxious, Nervous and Apprehensive Patient Cognition Impaired: No Ability to Follow Directions: Poor Speech Pattern: Clear and Perseverating Memory Description: Intact Diagnostics Vital Signs (24Hr): Vital Signs - 24 hr 09/03/20 18:36 09/03/20 21:35 09/04/20 06:25 Temperature 97 F 97.4 F Pulse Rate 85 85 65 Respiratory Rate 16 Blood Pressure 128/62 128/85 101/60 09/04/20 09:39 Temperature Pulse Rate 65 Respiratory Rate Blood Pressure 101/60 Body Mass Index 36.9 Labs Results: 08/15/20 15:38 08/19/20 07:49 Imaging Radiology Impressions: ITS Impressions Head CT 08/19/20 00:00 IMPRESSION: No acute intracranial abnormality. Medications Medications Current Medications Generic Name Dose Route Start Last Admin Trade Name Freq PRN Reason Stop Dose Admin Atorvastatin Calcium 20 mg 08/16/20 21:00 09/03/20 21:34 Atorvastatin Calcium 20 Mg Tablet PO 20 mg BEDTIME ERIN Administration Clonazepam 2 mg 08/31/20 21:00 09/03/20 21:33 Clonazepam 1 Mg Tablet PO 2 mg BEDTIME ERIN Administration Hydroxyzine HCl 50 mg 08/15/20 23:15 09/03/20 21:34 Hydroxyzine Hcl 50 Mg Tablet PO 50 mg BEDTIME ERIN Administration Hydroxyzine HCl 25 mg 08/16/20 16:10 08/29/20 16:47 Hydroxyzine Hcl 25 Mg Tablet PO 25 mg Q6H PRN Administration Anxiety Ibuprofen 600 mg 08/19/20 20:12 08/30/20 21:24 Ibuprofen 600 Mg Tablet PO 600 mg Q8H PRN Administration Pain, Moderate (Pain Scale 4-6 Levothyroxine Sodium 88 mcg 08/16/20 09:00 09/04/20 09:41 Levothyroxine Sodium 88 Mcg Tablet PO 88 mcg DAILY ERIN Administration Lidocaine 1 appl 08/25/20 13:08 08/25/20 13:55 Lidocaine 5 % Ointment 35 Gm TOPICAL 1 appl Q6H PRN Administration Pain, Moderate (Pain Scale 4-6 Protocol Magnesium Citrate 150 ml 08/17/20 18:31 08/17/20 22:53 Magnesium Citrate 300 Ml Solution PO 150 ml BID PRN Administration Constipation Mirtazapine 30 mg 08/15/20 21:00 09/03/20 21:34 Mirtazapine 30 Mg Tablet PO 30 mg BEDTIME ERIN Administration Nitroglycerin 0.4 mg 08/15/20 18:42 Nitroglycerin 0.4 Mg Tab.Subl SUBLINGUAL Q5M PRN Chest Pain Propranolol HCl 20 mg 08/15/20 21:00 09/04/20 09:39 Propranolol Hcl 20 Mg Tablet PO 20 mg BID ERIN Administration Protocol Quetiapine Fumarate 25 mg 08/26/20 19:15 08/28/20 20:25 Quetiapine Fumarate 25 Mg Tablet PO 25 mg BEDTIME PRN Administration Insomnia Quetiapine Fumarate 25 mg 08/27/20 20:08 09/03/20 16:54 Quetiapine Fumarate 25 Mg Tablet PO 25 mg Q6H PRN Administration anxiety/restlessness Quetiapine Fumarate 25 mg 09/03/20 06:00 09/04/20 09:39 Quetiapine Fumarate 25 Mg Tablet PO 25 mg DAILY@0600 ERIN Administration Quetiapine Fumarate 25 mg 09/03/20 13:00 09/03/20 16:55 Quetiapine Fumarate 25 Mg Tablet PO 25 mg DAILY@1300 ERIN Administration Quetiapine Fumarate 75 mg 09/04/20 21:00 Quetiapine Fumarate 25 Mg Tablet PO BEDTIME ERIN Sodium Biphosphate/Sodium Phosphate 133 ml 08/17/20 18:31 Sodium Phosphate,[place]-Dibasic 133 Ml Enema [place] DAILY PRN Constipation Trolamine Salicylate 1 appl 08/19/20 13:52 08/20/20 09:33 Trolamine Salicylate 10 % Cream 85 Gm Tube TOPICAL 1 appl QID PRN Administration Pain, Moderate (Pain Scale 4-6 Protocol Vortioxetine 10 mg 09/04/20 09:00 09/04/20 09:40 Vortioxetine Hydrobromide 5 Mg Tablet PO 10 mg DAILY ERIN Administration Allergies Allergies Allergy/AdvReac Type Severity Reaction Status Date / Time Iodinated Contrast Media Allergy Intermediate Hives Verified 09/03/20 06:29 Assessment & Plan Assessment & Plan (1) Major depressive disorder, recurrent severe without psychotic features: Status: Acute Code(s): F33.2 - Major depressive disorder, recurrent severe without psychotic features Assessment and Plan: continue ECT continue Seroquel at bedtime Greater than 50% of the session was spent on counseling and/or coordination of care
[2020-09-04] MEDS: clonazePAM 1 MG TABLET 2 MG PO (22:45)
[2020-09-04] MEDS: QUEtiapine Fumarate 25 MG TABLET 75 MG PO (22:46)
[2020-09-04] MEDS: Mirtazapine 30 MG TABLET PO (22:46)
[2020-09-04] MEDS: Atorvastatin Calcium 20 MG TABLET PO (22:46)
[2020-09-04] MEDS: hydrOXYzine HCL 50 MG TABLET PO (22:46)
[2020-09-04 22:47] VITALS: BP 145/85; PULSE 89
[2020-09-04 22:51] VITALS: TEMP 36.2
[2020-09-05 06:07] VITALS: BP 122/65; PULSE 60; RESP 16; TEMP 35.8; O2SAT 95
[2020-09-05] MEDS: Vortioxetine Hydrobromide 5 MG TABLET 10 MG PO (08:45)
[2020-09-05 08:46] VITALS: BP 122/65; PULSE 60
[2020-09-05] MEDS: Propranolol HCL 20 MG TABLET PO ×2 (08:46→23:06)
[2020-09-05] MEDS: QUEtiapine Fumarate 25 MG TABLET PO ×2 (08:46→13:10)
[2020-09-05] MEDS: Levothyroxine Sodium 88 MCG TABLET PO (08:47)
--- NOTE | 2020-09-05 12:03 | P.PNPSI_ITS ---
Subjective Subjective Date of Service: 09/05/20 Reason For Visit: Depression Interim History: pt still depressed, stating she wants to leave and go hoe; sad, easily frustrated and some agitation when ruminating about going home Medication Compliance: Yes Side effects from medications: No Review of Systems Review of Systems no change; pt denies dizziness Reports dizziness (denies dizzines ) Reports dizziness (denies dizzines ) Mental Status Exam Mental Status Exam Narrative: denies active self-harm in this setting but feels sad, quite fragile hopeless tearful ruminating on what happens if ECT not effective not psychotic no hallucinations or delusions does not respond easily to reassurance Patient Appearance: Appropriate Patient Orientation: Person, Place, Time and Situation Level of Consciousness: Awake and Follows Commands Patient Behavior: Passive, Restless, Anxious and Fearful Mood Description: Constricted, Depressed, Anxious, Sad, Nervous and Apprehensive Affect Description: Depressed, Anxious, Nervous and Apprehensive Patient Cognition Impaired: No Ability to Follow Directions: Poor Speech Pattern: Clear and Perseverating Memory Description: Intact Depressive Symptoms: Increased Anxiety, Increased Irritability and Hopelessness Judgement: Poor Diagnostics Vital Signs (24Hr): Vital Signs - 24 hr 09/04/20 22:47 09/04/20 22:51 09/05/20 06:07 Temperature 97.1 F 96.4 F L Pulse Rate 89 60 Respiratory Rate 16 Blood Pressure 145/85 H 122/65 Pulse Oximetry 95 09/05/20 08:46 Temperature Pulse Rate 60 Respiratory Rate Blood Pressure 122/65 Pulse Oximetry Body Mass Index 36.9 Labs Results: 08/15/20 15:38 08/19/20 07:49 Imaging Radiology Impressions: ITS Impressions Head CT 08/19/20 00:00 IMPRESSION: No acute intracranial abnormality. Medications Medications Current Medications Generic Name Dose Route Start Last Admin Trade Name Freq PRN Reason Stop Dose Admin Atorvastatin Calcium 20 mg 08/16/20 21:00 09/04/20 22:46 Atorvastatin Calcium 20 Mg Tablet PO 20 mg BEDTIME ERIN Administration Clonazepam 2 mg 08/31/20 21:00 09/04/20 22:45 Clonazepam 1 Mg Tablet PO 2 mg BEDTIME ERIN Administration Hydroxyzine HCl 50 mg 08/15/20 23:15 09/04/20 22:46 Hydroxyzine Hcl 50 Mg Tablet PO 50 mg BEDTIME ERIN Administration Hydroxyzine HCl 25 mg 08/16/20 16:10 08/29/20 16:47 Hydroxyzine Hcl 25 Mg Tablet PO 25 mg Q6H PRN Administration Anxiety Ibuprofen 600 mg 08/19/20 20:12 08/30/20 21:24 Ibuprofen 600 Mg Tablet PO 600 mg Q8H PRN Administration Pain, Moderate (Pain Scale 4-6 Levothyroxine Sodium 88 mcg 08/16/20 09:00 09/05/20 08:47 Levothyroxine Sodium 88 Mcg Tablet PO 88 mcg DAILY ERIN Administration Lidocaine 1 appl 08/25/20 13:08 08/25/20 13:55 Lidocaine 5 % Ointment 35 Gm TOPICAL 1 appl Q6H PRN Administration Pain, Moderate (Pain Scale 4-6 Protocol Magnesium Citrate 150 ml 08/17/20 18:31 08/17/20 22:53 Magnesium Citrate 300 Ml Solution PO 150 ml BID PRN Administration Constipation Mirtazapine 30 mg 08/15/20 21:00 09/04/20 22:46 Mirtazapine 30 Mg Tablet PO 30 mg BEDTIME ERIN Administration Nitroglycerin 0.4 mg 08/15/20 18:42 Nitroglycerin 0.4 Mg Tab.Subl SUBLINGUAL Q5M PRN Chest Pain Propranolol HCl 20 mg 08/15/20 21:00 09/05/20 08:46 Propranolol Hcl 20 Mg Tablet PO 20 mg BID ERIN Administration Protocol Quetiapine Fumarate 25 mg 08/26/20 19:15 08/28/20 20:25 Quetiapine Fumarate 25 Mg Tablet PO 25 mg BEDTIME PRN Administration Insomnia Quetiapine Fumarate 25 mg 08/27/20 20:08 09/03/20 16:54 Quetiapine Fumarate 25 Mg Tablet PO 25 mg Q6H PRN Administration anxiety/restlessness Quetiapine Fumarate 25 mg 09/03/20 06:00 09/05/20 08:46 Quetiapine Fumarate 25 Mg Tablet PO 25 mg DAILY@0600 ERIN Administration Quetiapine Fumarate 75 mg 09/04/20 21:00 09/04/20 22:46 Quetiapine Fumarate 25 Mg Tablet PO 75 mg BEDTIME ERIN Administration Quetiapine Fumarate 25 mg 09/04/20 13:45 09/04/20 14:30 Quetiapine Fumarate 25 Mg Tablet PO 25 mg DAILY@1300 ERIN Administration Sodium Biphosphate/Sodium Phosphate 133 ml 10/27/20 18:31 Sodium Phosphate,[place]-Dibasic 133 Ml Enema [place] DAILY PRN Constipation Trolamine Salicylate 1 appl 08/19/20 13:52 08/20/20 09:33 Trolamine Salicylate 10 % Cream 85 Gm Tube TOPICAL 1 appl QID PRN Administration Pain, Moderate (Pain Scale 4-6 Protocol Vortioxetine 10 mg 09/04/20 09:00 09/05/20 08:45 Vortioxetine Hydrobromide 5 Mg Tablet PO 10 mg DAILY ERIN Administration Allergies Allergies Allergy/AdvReac Type Severity Reaction Status Date / Time Iodinated Contrast Media Allergy Intermediate Hives Verified 09/03/20 06:29 Assessment & Plan Assessment & Plan (1) Major depressive disorder, recurrent severe without psychotic features: Status: Acute Code(s): F33.2 - Major depressive disorder, recurrent severe without psychotic features Assessment and Plan: continue ECT continue Seroquel at bedtime Greater than 50% of the session was spent on counseling and/or coordination of care Reason for contiued inpatient stay Substantial Risk for: inability to function and med/psych decompensation
[2020-09-05 23:06] VITALS: BP 142/83; PULSE 78
[2020-09-05] MEDS: hydrOXYzine HCL 50 MG TABLET PO (23:06)
[2020-09-05] MEDS: Atorvastatin Calcium 20 MG TABLET PO (23:06)
[2020-09-05] MEDS: Mirtazapine 30 MG TABLET PO (23:06)
[2020-09-05] MEDS: QUEtiapine Fumarate 25 MG TABLET 75 MG PO (23:06)
[2020-09-05 23:08] VITALS: TEMP 36.3
[2020-09-06] VITALS (14 sets, daily range): BP systolic 123–152; BP diastolic 66–90; PULSE 60–75; RESP 16–20; TEMP 36.1–36.6; O2SAT 93–98; BMI 36.9
[2020-09-06] MEDS: QUEtiapine Fumarate 25 MG TABLET PO ×3 (05:33→17:03)
--- NOTE | 2020-09-06 06:08 | MHC.SHP ---
Pre-Procedural Eval Section A The patient is an INPATIENT: Yes Changes since office visit: No Cold of Flu in the past 2 weeks, No New Medical Problems, No Changes in Medication and No Patient answered all questions The History & Physical has been completed within 30 days and I have reviewed it.: Yes Section B Chief Complaint: Depression Allergies: Allergies Allergy/AdvReac Type Severity Reaction Status Date / Time Iodinated Contrast Media Allergy Intermediate Hives Verified 09/03/20 06:29 Plan Diagnosis/Plan: Unchanged Patient has been examined and remains a candidate for the planned procedure
--- NOTE | 2020-09-06 06:08 | HO.ECTPROC ---
ECT Procedure Note Diagnosis/Treatment Diagnosis: Major Depressive Disorder Current Treatment Number: 6 Treatment: Series Interval Clinical Notes: Improving. Less anxious/perseverative ECT Settings Device: THYMATRON DGx Electrode Placement: Right Unilateral Program/Pulse Width: 0.50 Energy Percent: 100 Seizure Duration By EEG (in seconds): 67 By Motor Observation (in seconds): 52 Medications Administration General Anesthetic: Etomidate (16) Muscle Relaxant: Succinylcholine (80) Ancillary Medications Analgesics: Torodol - Pre ECT (15) Anti-emetics: Zofran - Pre ECT (4) Miscillaneous Medications: Flumazenil (0.5 not too early) and Other (Lotazepam 1 mg post ) Airway Management Airway Management: Bag Mask Ventilation Treatment Recommendations Electrode Placement: Right Unilateral Program/Pulse Width: 0.50 Energy Percent: 80 Notes: Decrease to 80% Pt Tolerated Procedure w/o Issue: Yes
--- NOTE | 2020-09-06 08:11 | HO.ANESPROP2 ---
[facility] Past Medical History Medical History Constipation Endometriosis Hypercholesteremia Hypertension Hypothyroidism Major depressive disorder, recurrent severe without psychotic features Functional capacity: independent ambulation Surgical History Surgical History Hx of appendectomy Social History Social History Household Members: Spouse Housing: House Are you a primary med care manager to a significant other at home: No Do you presently have visiting nurse or other home services: No Alcohol intake: never Smoking Status: Former smoker Years Smoked: 5 Smoked in Last 30 Days: No Use of substances other than those prescribed or required for medical reasons: No Currently Displaying Signs/Symptoms of Drug Intoxication Withdrawal: No Have you been hit, kicked, punched, or otherwise hurt by someone within the past year? If so, by whom?: No Do you feel safe in your current relationship?: Yes Is there a partner from a previous relationship who is making you feel unsafe now?: No Are you made to feel afraid or neglected: No Spiritual Healthcare Practices: NONE IDENTIFIED Evangelical Healthcare Practices: [facility], Religious Advance Directives: No Advance Directives Information Provided: No Advance Directives on File: No Do you have thoughts of harming others: None Do you have a plan to hurt others: No Plan Recently lost weight without trying: No service: No Sexual orientation: Straight/Heterosexual Meds Allergies Allergy/AdvReac Type Severity Reaction Status Date / Time Iodinated Contrast Media Allergy Intermediate Hives Verified 09/06/20 06:42 Home Medications Medication Instructions Recorded Confirmed Type atorvastatin 10 mg PO DAILY 08/15/20 08/15/20 History clonazepam 3 mg PO BEDTIME 08/15/20 08/15/20 History escitalopram oxalate [Lexapro] 5 mg PO BEDTIME 08/15/20 08/15/20 History hydroxyzine HCl 50 mg PO BEDTIME 08/15/20 08/15/20 History levothyroxine 88 mcg PO DAILY 08/15/20 08/15/20 History mirtazapine 30 mg PO BEDTIME 08/15/20 08/15/20 History nitroglycerin 0.4 mg SUBLINGUAL Q5M PRN 08/15/20 08/15/20 History propranolol 20 mg PO BID 08/15/20 08/15/20 History topiramate 75 mg PO BEDTIME 08/15/20 08/15/20 History ziprasidone HCl 20 mg PO DAILY@1700 08/15/20 08/15/20 History Exam Exam Date and Time: September 06, 2020 0811 Height,Weight and Vital Signs: Height 5 ft 2 in Weight 91.626 kg Last Vital Signs Temp 98 F 09/06/20 07:31 Pulse 63 09/06/20 08:00 Resp 20 09/06/20 08:00 BP 135/81 09/06/20 08:00 Pulse Ox 98 09/06/20 08:00 Pertinent Lab Results Pertinent Lab Results: Laboratory Tests 08/15/20 08/15/20 08/15/20 11:56 11:57 15:38 WBC 6.8 RBC 5.37 Hgb 15.1 Hct 47.4 H MCV 88.3 MCH 28.1 MCHC 31.9 RDW 14.2 Plt Count 326 MPV 10.1 Immature Gran % (Auto) 0.4 Neut % (Auto) 72.0 Lymph % (Auto) 19.1 L [place] % (Auto) 5.8 Eos % (Auto) 2.1 Baso % (Auto) 0.6 Lymph # (Auto) 1.3 [place] # (Auto) 0.4 Eos # (Auto) 0.1 Baso # (Auto) 0.0 Abs Immat Gran (auto) 0.03 Absolute Neuts (auto) 4.9 Absolute Nucleated RBC 0.000 Nucleated RBC % (auto) 0.0 PT INR APTT Sodium Potassium Chloride Carbon Dioxide Anion Gap BUN Creatinine Estim Creat Clear Calc Estimated GFR Random Glucose Fasting Glucose Calcium Total Bilirubin Direct Bilirubin AST ALT Alkaline Phosphatase Total Protein Albumin Triglycerides Cholesterol LDL Cholesterol, Calc HDL Cholesterol Vitamin B12 Folate TSH Urine Color YELLOW Urine Appearance HAZY Urine pH 5.5 Ur Specific [place] >= 1.030 H Urine Protein NEG Urine Glucose (UA) NEG Urine Ketones 40 Urine Blood NEG Urine Nitrite NEG Ur Leukocyte Esterase NEG Salicylates Urine Opiates Screen Not Detected Acetaminophen Ur Barbiturates Screen Not Detected Ur Phencyclidine Scrn Not Detected Ur Amphetamines Screen Not Detected U Benzodiazepines Scrn POSITIVE H Urine Cocaine Screen Not Detected U Marijuana (THC) Screen Not Detected Ethyl Alcohol Coronavirus (PCR) 08/15/20 08/15/20 08/15/20 15:38 15:38 15:38 WBC RBC Hgb Hct MCV MCH MCHC RDW Plt Count MPV Immature Gran % (Auto) Neut % (Auto) Lymph % (Auto) [place] % (Auto) Eos % (Auto) Baso % (Auto) Lymph # (Auto) [place] # (Auto) Eos # (Auto) Baso # (Auto) Abs Immat Gran (auto) Absolute Neuts (auto) Absolute Nucleated RBC Nucleated RBC % (auto) PT INR APTT Sodium 141 Potassium 4.0 Chloride 106 Carbon Dioxide 24 Anion Gap 15 BUN 10 Creatinine 0.91 Estim Creat Clear Calc 67.5 Estimated GFR > 60 Random Glucose 125 H Fasting Glucose Calcium 9.7 Total Bilirubin 0.4 Direct Bilirubin 0.2 AST 18 ALT 17 Alkaline Phosphatase 99 Total Protein 7.0 Albumin 4.2 Triglycerides Cholesterol LDL Cholesterol, Calc HDL Cholesterol Vitamin B12 Folate TSH Urine Color Urine Appearance Urine pH Ur Specific [place] Urine Protein Urine Glucose (UA) Urine Ketones Urine Blood Urine Nitrite Ur Leukocyte Esterase Salicylates < 5.0 L Urine Opiates Screen Acetaminophen < 1 Ur Barbiturates Screen Ur Phencyclidine Scrn Ur Amphetamines Screen U Benzodiazepines Scrn Urine Cocaine Screen U Marijuana (THC) Screen Ethyl Alcohol < 10 Coronavirus (PCR) 08/15/20 08/17/20 08/19/20 15:38 09:11 07:49 WBC RBC Hgb Hct MCV MCH MCHC RDW Plt Count MPV Immature Gran % (Auto) Neut % (Auto) Lymph % (Auto) [place] % (Auto) Eos % (Auto) Baso % (Auto) Lymph # (Auto) [place] # (Auto) Eos # (Auto) Baso # (Auto) Abs Immat Gran (auto) Absolute Neuts (auto) Absolute Nucleated RBC Nucleated RBC % (auto) PT 11.7 INR 1.0 APTT 34.8 Sodium 138 Potassium 4.2 Chloride 103 Carbon Dioxide 27 Anion Gap 12 BUN 12 Creatinine 0.92 Estim Creat Clear Calc 66.8 Estimated GFR > 60 Random Glucose Fasting Glucose 112 H Calcium 9.4 Total Bilirubin 0.5 Direct Bilirubin AST 26 D ALT 18 Alkaline Phosphatase 99 Total Protein 6.7 Albumin 4.1 Triglycerides 119 Cholesterol 151 LDL Cholesterol, Calc 76 HDL Cholesterol 52 Vitamin B12 Folate TSH 1.07 Urine Color Urine Appearance Urine pH Ur Specific [place] Urine Protein Urine Glucose (UA) Urine Ketones Urine Blood Urine Nitrite Ur Leukocyte Esterase Salicylates Urine Opiates Screen Acetaminophen Ur Barbiturates Screen Ur Phencyclidine Scrn Ur Amphetamines Screen U Benzodiazepines Scrn Urine Cocaine Screen U Marijuana (THC) Screen Ethyl Alcohol Coronavirus (PCR) NEGATIVE 08/19/20 07:49 WBC RBC Hgb Hct MCV MCH MCHC RDW Plt Count MPV Immature Gran % (Auto) Neut % (Auto) Lymph % (Auto) [place] % (Auto) Eos % (Auto) Baso % (Auto) Lymph # (Auto) [place] # (Auto) Eos # (Auto) Baso # (Auto) Abs Immat Gran (auto) Absolute Neuts (auto) Absolute Nucleated RBC Nucleated RBC % (auto) PT INR APTT Sodium Potassium Chloride Carbon Dioxide Anion Gap BUN Creatinine Estim Creat Clear Calc Estimated GFR Random Glucose Fasting Glucose Calcium Total Bilirubin Direct Bilirubin AST ALT Alkaline Phosphatase Total Protein Albumin Triglycerides Cholesterol LDL Cholesterol, Calc HDL Cholesterol Vitamin B12 364 Folate 12.4 TSH Urine Color Urine Appearance Urine pH Ur Specific [place] Urine Protein Urine Glucose (UA) Urine Ketones Urine Blood Urine Nitrite Ur Leukocyte Esterase Salicylates Urine Opiates Screen Acetaminophen Ur Barbiturates Screen Ur Phencyclidine Scrn Ur Amphetamines Screen U Benzodiazepines Scrn Urine Cocaine Screen U Marijuana (THC) Screen Ethyl Alcohol Coronavirus (PCR) Airway Mallampati Class: III TM Dist: >3cm Neck ROM: Full
--- NOTE | 2020-09-06 08:13 | HO.POSTANES ---
Post Anesthesia Evaluation Post Anesthesia Evaluation Vital Signs: Vital Signs Temp Pulse Resp BP Pulse Ox 09/06/20 08:00 63 20 135/81 98 09/06/20 07:45 64 20 143/90 H 95 09/06/20 07:40 64 20 145/75 H 94 09/06/20 07:35 68 16 152/66 H 93 09/06/20 07:31 98 F 70 16 131/73 09/06/20 06:17 96.9 F 70 16 128/84 95 09/06/20 05:47 98 F 72 16 137/83 96 09/05/20 23:08 97.4 F 09/05/20 23:06 78 142/83 H Anesthesia: General Mental Status: Awake Pain Control: Satisfactory Nausea/Vomiting: Mild Hydration: Adequate Anesthesia-Related Issues: No Anes. Related Issues
[2020-09-06] MEDS: Propranolol HCL 20 MG TABLET PO ×2 (08:58→22:31)
[2020-09-06] MEDS: Levothyroxine Sodium 88 MCG TABLET PO (08:59)
[2020-09-06] MEDS: Vortioxetine Hydrobromide 5 MG TABLET 10 MG PO (08:59)
[2020-09-06] MEDS: QUEtiapine Fumarate 25 MG TABLET 75 MG PO (22:31)
[2020-09-06] MEDS: Atorvastatin Calcium 20 MG TABLET PO (22:32)
[2020-09-06] MEDS: clonazePAM 1 MG TABLET 2 MG PO (22:32)
[2020-09-06] MEDS: hydrOXYzine HCL 50 MG TABLET PO (22:33)
[2020-09-06] MEDS: Mirtazapine 30 MG TABLET PO (22:33)
[2020-09-07 06:00] VITALS: BP 131/60; PULSE 70; TEMP 36.9
[2020-09-07] MEDS: QUEtiapine Fumarate 25 MG TABLET PO ×3 (06:20→15:01)
[2020-09-07 06:31] VITALS: BP 131/60; PULSE 70
[2020-09-07] MEDS: Propranolol HCL 20 MG TABLET PO ×2 (06:31→21:59)
[2020-09-07] MEDS: Vortioxetine Hydrobromide 5 MG TABLET 10 MG PO (08:31)
[2020-09-07] MEDS: Levothyroxine Sodium 88 MCG TABLET PO (08:31)
[2020-09-07 21:26] VITALS: BP 156/80; PULSE 58; TEMP 37.1
[2020-09-07 21:59] VITALS: BP 156/80; PULSE 58
[2020-09-07] MEDS: hydrOXYzine HCL 50 MG TABLET PO (21:59)
[2020-09-07] MEDS: clonazePAM 1 MG TABLET 2 MG PO (21:59)
[2020-09-07] MEDS: QUEtiapine Fumarate 25 MG TABLET 75 MG PO (21:59)
[2020-09-07] MEDS: Atorvastatin Calcium 20 MG TABLET PO (22:00)
[2020-09-07] MEDS: Mirtazapine 30 MG TABLET PO (22:00)
--- NOTE | 2020-09-07 22:05 | HO.PSYCHPN ---
Subjective Subjective Reason For Visit: Depression Subjective Notes: Conditional Voluntary Interim History: PATIENT HAD ECT YESTERDAY STATE YESTERDAY SEEMS SOMEWHAT CONFUSED TODAY DID NOT REMEMBER ALICIA MARTINEZ KNOWS THE YEAR AND THE MONTH THE DATE HOME ADDRESS CONTINUES TO STATE I DO NOT KNOW I AM WHO HERE PART OF THAT APPEARS TO BE RESISTANCE TO BEING IN THE HOSPITAL AND NEEDING TREATMENT OTHER PART SEEM TO BE SOME FUZZINESS REGARDING SOME MEMORIES JUST BEFORE HOSPITALIZATION SHE IS CALMER LESS AGITATED Medication Compliance: Yes Review of Systems Reports dizziness (denies dizzines ) Reports dizziness (denies dizzines ) Mental Status Exam Mental Status Exam Narrative: SEEMS IMPROVED LESS AGITATED FUTURE FOCUSED DENIES SELF-HARM SOME DIFFICULTY WITH EPISODIC MEMORY OF RECENT EVENTS DENIES ANY THOUGHTS OF SELF-HARM Patient Appearance: Appropriate Patient Orientation: Person, Place, Time and Situation Level of Consciousness: Awake and Follows Commands Patient Behavior: Passive, Restless, Anxious and Fearful Mood Description: Constricted, Depressed, Anxious, Sad, Nervous and Apprehensive Affect Description: Depressed, Anxious, Nervous and Apprehensive Patient Cognition Impaired: No Ability to Follow Directions: Poor Speech Pattern: Clear Memory Description: Intact Diagnostics Vital Signs (24Hr): Vital Signs - 24 hr 09/06/20 22:31 09/07/20 06:00 09/07/20 06:31 Temperature 98.5 F Pulse Rate 75 70 70 Blood Pressure 149/83 H 131/60 131/60 09/07/20 21:26 09/07/20 21:59 Temperature 98.7 F Pulse Rate 58 58 Blood Pressure 156/80 H 156/80 H Body Mass Index 36.9 Labs Results: 08/15/20 15:38 08/19/20 07:49 Imaging Radiology Impressions: ITS Impressions Head CT 08/19/20 00:00 IMPRESSION: No acute intracranial abnormality. Medications Medications Current Medications Generic Name Dose Route Start Last Admin Trade Name Freq PRN Reason Stop Dose Admin Atorvastatin Calcium 20 mg 08/16/20 21:00 09/07/20 22:00 Atorvastatin Calcium 20 Mg Tablet PO 20 mg BEDTIME ERIN Administration Clonazepam 2 mg 08/31/20 21:00 09/07/20 21:59 Clonazepam 1 Mg Tablet PO 2 mg BEDTIME ERIN Administration Hydroxyzine HCl 50 mg 08/15/20 23:15 09/07/20 21:59 Hydroxyzine Hcl 50 Mg Tablet PO 50 mg BEDTIME ERIN Administration Hydroxyzine HCl 25 mg 08/16/20 16:10 08/29/20 16:47 Hydroxyzine Hcl 25 Mg Tablet PO 25 mg Q6H PRN Administration Anxiety Lactated Ringer's 1,000 mls @ 100 mls/hr 09/06/20 08:15 09/07/20 08:30 Lr IVCONT Not Given .Q10H ERIN Ibuprofen 600 mg 08/19/20 20:12 08/30/20 21:24 Ibuprofen 600 Mg Tablet PO 600 mg Q8H PRN Administration Pain, Moderate (Pain Scale 4-6 Levothyroxine Sodium 88 mcg 08/16/20 09:00 09/07/20 08:31 Levothyroxine Sodium 88 Mcg Tablet PO 88 mcg DAILY ERIN Administration Lidocaine 1 appl 08/25/20 13:08 08/25/20 13:55 Lidocaine 5 % Ointment 35 Gm TOPICAL 1 appl Q6H PRN Administration Pain, Moderate (Pain Scale 4-6 Protocol Magnesium Citrate 150 ml 08/17/20 18:31 08/17/20 22:53 Magnesium Citrate 300 Ml Solution PO 150 ml BID PRN Administration Constipation Mirtazapine 30 mg 08/15/20 21:00 09/07/20 22:00 Mirtazapine 30 Mg Tablet PO 30 mg BEDTIME ERIN Administration Nitroglycerin 0.4 mg 08/15/20 18:42 Nitroglycerin 0.4 Mg Tab.Subl SUBLINGUAL Q5M PRN Chest Pain Propranolol HCl 20 mg 08/15/20 21:00 09/07/20 21:59 Propranolol Hcl 20 Mg Tablet PO 20 mg BID ERIN Administration Protocol Quetiapine Fumarate 25 mg 08/26/20 19:15 08/28/20 20:25 Quetiapine Fumarate 25 Mg Tablet PO 25 mg BEDTIME PRN Administration Insomnia Quetiapine Fumarate 25 mg 08/27/20 20:08 09/06/20 17:03 Quetiapine Fumarate 25 Mg Tablet PO 25 mg Q6H PRN Administration anxiety/restlessness Quetiapine Fumarate 25 mg 09/03/20 06:00 09/07/20 14:40 Quetiapine Fumarate 25 Mg Tablet PO 25 mg DAILY@0600 ERIN Administration Quetiapine Fumarate 75 mg 09/04/20 21:00 09/07/20 21:59 Quetiapine Fumarate 25 Mg Tablet PO 75 mg BEDTIME ERIN Administration Quetiapine Fumarate 25 mg 09/04/20 13:45 09/07/20 15:01 Quetiapine Fumarate 25 Mg Tablet PO 25 mg DAILY@1300 ERIN Administration Sodium Biphosphate/Sodium Phosphate 133 ml 08/17/20 18:31 Sodium Phosphate,[place]-Dibasic 133 Ml Enema [place] DAILY PRN Constipation Trolamine Salicylate 1 appl 08/19/20 13:52 08/20/20 09:33 Trolamine Salicylate 10 % Cream 85 Gm Tube TOPICAL 1 appl QID PRN Administration Pain, Moderate (Pain Scale 4-6 Protocol Vortioxetine 10 mg 09/04/20 09:00 09/07/20 08:31 Vortioxetine Hydrobromide 5 Mg Tablet PO 10 mg DAILY ERIN Administration Allergies Allergies Allergy/AdvReac Type Severity Reaction Status Date / Time Iodinated Contrast Media Allergy Intermediate Hives Verified 09/06/20 06:42 Assessment & Plan Assessment & Plan (1) Major depressive disorder, recurrent severe without psychotic features: Status: Acute Code(s): F33.2 - Major depressive disorder, recurrent severe without psychotic features Assessment and Plan: HOLD TOMORROW'S ECT CONSIDER DISCHARGE AND TRANSITION TO OUTPATIENT TREATMENT CASE REVIEWED WITH PATIENT'S continue Seroquel at bedtime Greater than 50% of the session was spent on counseling and/or coordination of care Patient educated on: diagnosis, medication risk/benefits and ECT Informed Consent: further education needed Reason for contiued inpatient stay Substantial Risk for: harm to self and rapid decompensation
[2020-09-08 06:10] VITALS: BP 111/59; PULSE 61; RESP 16; TEMP 36.7
[2020-09-08] MEDS: Lactated Ringers 1,000 ML 100 ML IVCONT (08:24)
[2020-09-08 08:42] VITALS: BP 111/59; PULSE 61
[2020-09-08] MEDS: Vortioxetine Hydrobromide 5 MG TABLET 10 MG PO (08:42)
[2020-09-08] MEDS: QUEtiapine Fumarate 25 MG TABLET PO ×2 (08:42→12:47)
[2020-09-08] MEDS: Levothyroxine Sodium 88 MCG TABLET PO (08:42)
[2020-09-08] MEDS: Propranolol HCL 20 MG TABLET PO ×2 (08:42→21:58)
[2020-09-08 09:00] VITALS: BP 111/59; PULSE 61; TEMP 36.7
--- NOTE | 2020-09-08 20:15 | P.PNPSI_ITS ---
Subjective Subjective Reason For Visit: Depression Interim History: patient or come much less depressed less anxious case reviewed with patient's seems stable for discharge tomorrow if continues stable Review of Systems Reports dizziness (denies dizzines ) Reports dizziness (denies dizzines ) Mental Status Exam Mental Status Exam Narrative: SEEMS IMPROVED LESS AGITATED FUTURE FOCUSED DENIES SELF-HARM SOME DIFFICULTY WITH EPISODIC MEMORY OF RECENT EVENTS DENIES ANY THOUGHTS OF SELF- HARM feels comfortable with thoughts of discharge Patient Appearance: Appropriate Patient Orientation: Person, Place, Time and Situation Level of Consciousness: Awake and Follows Commands Patient Behavior: Passive, Restless, Anxious and Fearful Mood Description: Constricted, Depressed, Anxious, Sad, Nervous and Apprehensive Affect Description: Depressed, Anxious, Nervous and Apprehensive Patient Cognition Impaired: No Ability to Follow Directions: Poor Speech Pattern: Clear Memory Description: Intact Diagnostics Vital Signs (24Hr): Vital Signs - 24 hr 09/07/20 21:26 09/07/20 21:59 09/08/20 06:10 Temperature 98.7 F 98.0 F Pulse Rate 58 58 61 Respiratory Rate 16 Blood Pressure 156/80 H 156/80 H 111/59 L 09/08/20 08:42 09/08/20 09:00 Temperature 98.0 F Pulse Rate 61 61 Respiratory Rate Blood Pressure 111/59 L 111/59 L Body Mass Index 36.9 Labs Results: 08/15/20 15:38 08/19/20 07:49 Imaging Radiology Impressions: ITS Impressions Head CT 08/19/20 00:00 IMPRESSION: No acute intracranial abnormality. Medications Medications Current Medications Generic Name Dose Route Start Last Admin Trade Name Freq PRN Reason Stop Dose Admin Atorvastatin Calcium 20 mg 08/16/20 21:00 09/07/20 22:00 Atorvastatin Calcium 20 Mg Tablet PO 20 mg BEDTIME ERIN Administration Clonazepam 2 mg 08/31/20 21:00 09/07/20 21:59 Clonazepam 1 Mg Tablet PO 2 mg BEDTIME ERIN Administration Hydroxyzine HCl 50 mg 08/15/20 23:15 09/07/20 21:59 Hydroxyzine Hcl 50 Mg Tablet PO 50 mg BEDTIME ERIN Administration Hydroxyzine HCl 25 mg 08/16/20 16:10 08/29/20 16:47 Hydroxyzine Hcl 25 Mg Tablet PO 25 mg Q6H PRN Administration Anxiety Ibuprofen 600 mg 08/19/20 20:12 08/30/20 21:24 Ibuprofen 600 Mg Tablet PO 600 mg Q8H PRN Administration Pain, Moderate (Pain Scale 4-6 Levothyroxine Sodium 88 mcg 08/16/20 09:00 09/08/20 08:42 Levothyroxine Sodium 88 Mcg Tablet PO 88 mcg DAILY ERIN Administration Lidocaine 1 appl 08/25/20 13:08 08/25/20 13:55 Lidocaine 5 % Ointment 35 Gm TOPICAL 1 appl Q6H PRN Administration Pain, Moderate (Pain Scale 4-6 Protocol Magnesium Citrate 150 ml 08/17/20 18:31 08/17/20 22:53 Magnesium Citrate 300 Ml Solution PO 150 ml BID PRN Administration Constipation Mirtazapine 30 mg 08/15/20 21:00 09/07/20 22:00 Mirtazapine 30 Mg Tablet PO 30 mg BEDTIME ERIN Administration Nitroglycerin 0.4 mg 08/15/20 18:42 Nitroglycerin 0.4 Mg Tab.Subl SUBLINGUAL Q5M PRN Chest Pain Propranolol HCl 20 mg 08/15/20 21:00 09/08/20 08:42 Propranolol Hcl 20 Mg Tablet PO 20 mg BID ERIN Administration Protocol Quetiapine Fumarate 25 mg 08/26/20 19:15 08/28/20 20:25 Quetiapine Fumarate 25 Mg Tablet PO 25 mg BEDTIME PRN Administration Insomnia Quetiapine Fumarate 25 mg 08/27/20 20:08 09/06/20 17:03 Quetiapine Fumarate 25 Mg Tablet PO 25 mg Q6H PRN Administration anxiety/restlessness Quetiapine Fumarate 25 mg 09/03/20 06:00 09/08/20 08:42 Quetiapine Fumarate 25 Mg Tablet PO 25 mg DAILY@0600 ERIN Administration Quetiapine Fumarate 75 mg 09/04/20 21:00 09/07/20 21:59 Quetiapine Fumarate 25 Mg Tablet PO 75 mg BEDTIME ERIN Administration Quetiapine Fumarate 25 mg 09/04/20 13:45 09/08/20 12:47 Quetiapine Fumarate 25 Mg Tablet PO 25 mg DAILY@1300 ERIN Administration Sodium Biphosphate/Sodium Phosphate 133 ml 08/17/20 18:31 Sodium Phosphate,[place]-Dibasic 133 Ml Enema [place] DAILY PRN Constipation Trolamine Salicylate 1 appl 08/19/20 13:52 08/20/20 09:33 Trolamine Salicylate 10 % Cream 85 Gm Tube TOPICAL 1 appl QID PRN Administration Pain, Moderate (Pain Scale 4-6 Protocol Vortioxetine 10 mg 09/04/20 09:00 09/08/20 08:42 Vortioxetine Hydrobromide 5 Mg Tablet PO 10 mg DAILY ERIN Administration Allergies Allergies Allergy/AdvReac Type Severity Reaction Status Date / Time Iodinated Contrast Media Allergy Intermediate Hives Verified 09/06/20 06:42 Assessment & Plan Assessment & Plan (1) Major depressive disorder, recurrent severe without psychotic features: Status: Acute Code(s): F33.2 - Major depressive disorder, recurrent severe without psychotic features Assessment and Plan: discharge tomorrow if stable case reviewed with patient's Greater than 50% of the session was spent on counseling and/or coordination of care Patient educated on: medication risk/benefits and ECT Informed Consent: further education needed Reason for contiued inpatient stay Substantial Risk for: rapid decompensation
[2020-09-08] MEDS: QUEtiapine Fumarate 25 MG TABLET 75 MG PO (21:52)
[2020-09-08] MEDS: Atorvastatin Calcium 20 MG TABLET PO (21:52)
[2020-09-08] MEDS: clonazePAM 1 MG TABLET 2 MG PO (21:53)
[2020-09-08] MEDS: Mirtazapine 30 MG TABLET PO (21:53)
[2020-09-08] MEDS: hydrOXYzine HCL 50 MG TABLET PO (21:54)
[2020-09-08 21:58] VITALS: BP 148/88; PULSE 80
[2020-09-09 06:10] VITALS: BP 112/64; PULSE 57; RESP 18; TEMP 35.8; O2SAT 95
[2020-09-09 08:15] VITALS: BP 112/64; PULSE 57
[2020-09-09] MEDS: Propranolol HCL 20 MG TABLET PO (08:15)
[2020-09-09] MEDS: Vortioxetine Hydrobromide 5 MG TABLET 10 MG PO (08:17)
[2020-09-09] MEDS: Levothyroxine Sodium 88 MCG TABLET PO (08:17)
[2020-09-09] MEDS: QUEtiapine Fumarate 25 MG TABLET PO (13:33)
--- NOTE | 2020-09-09 23:41 | P.DS_ITS ---
DS: Providers Provider Date of admission: 08/17/20 15:36 Primary care physician: Hilda Weston MD DS: Diagnosis Discharge Diagnosis (1) Major depressive disorder, recurrent severe without psychotic features: Status: Acute Problem details: severe depression with anxiety status post recent suicide attempt much improved DS: Medications Discharge Medications Home Medications: Home Medications Medication Instructions Recorded Confirmed atorvastatin 10 mg PO DAILY 08/15/20 08/15/20 hydroxyzine HCl 50 mg PO BEDTIME 08/15/20 08/15/20 levothyroxine 88 mcg PO DAILY 08/15/20 08/15/20 mirtazapine 30 mg PO BEDTIME 08/15/20 08/15/20 nitroglycerin 0.4 mg SUBLINGUAL Q5M PRN 08/15/20 08/15/20 propranolol 20 mg PO BID 08/15/20 08/15/20 Previous Rx's Medication Instructions Recorded clonazepam 2 mg PO BEDTIME #0 tab 09/09/20 quetiapine 25 mg PO BID@0800,1300 30 Days #90 09/09/20 tab quetiapine 100 mg PO BEDTIME 30 Days #30 tab 09/09/20 vortioxetine 10 mg PO DAILY 30 Days #30 tab 09/09/20 Discharge Plan Discharge Patient Disposition: Home, Self-Care Referrals: Dr. Fuentes (psychiatrist) [Other] - 09/23/20 1:30 pm (Telehealth appointment) Asha Interiano (therapist) [Other] - 09/14/20 3:00 pm (In-person appointment. You can choose if you would like to wear a mask.) Hilda Weston MD [Primary Care Provider] - 09/15/20 5:30 pm (OMAR COLEY WILL BE COVERING FOR DR. HILDA WESTON. IN OFFICE) Discharge Medications: New quetiapine 25 mg Tablet 25 mg PO BID@0800,1300 30 Days Qty: 90 RF: 0 vortioxetine 10 mg tablet 10 mg PO DAILY 30 Days Qty: 30 RF: 0 quetiapine 100 mg tablet 100 mg PO BEDTIME 30 Days Qty: 30 RF: 0 Continued atorvastatin 20 mg Tablet 10 mg PO DAILY RF: 0 hydroxyzine HCl 50 mg Tablet 50 mg PO BEDTIME RF: 0 mirtazapine 30 mg Tablet 30 mg PO BEDTIME RF: 0 nitroglycerin 0.4 mg Tablet, Sublingual 0.4 mg SUBLINGUAL Q5M PRN (Reason: Chest Pain) RF: 0 propranolol 20 mg Tablet 20 mg PO BID RF: 0 levothyroxine 88 mcg Capsule 88 mcg PO DAILY RF: 0 Changed clonazepam 1 mg Tablet 2 mg PO BEDTIME Qty: 0 RF: 0 Discontinued topiramate 25 mg Tablet 75 mg PO BEDTIME RF: 0 ziprasidone HCl 20 mg Capsule 20 mg PO DAILY@1700 RF: 0 escitalopram oxalate [Lexapro] 5 mg Tablet 5 mg PO BEDTIME RF: 0 Discharge Orders: Discharge Order (Routine); Ordered 09/09/20 Ordered By: Deondre Briceño Diet: advance to usual diet Activity on Discharge: no driving Patient Instructions: Quetiapine (By mouth), Vortioxetine (By mouth), Electroconvulsive Therapy (DC), Help Prevent Suicide (DC), Help Prevent Suicide in Older Adults (DC) Stand Alone Forms: Community Support Discharge Date/Time: 09/09/20 13:45 Activity Restrictions/Additional Instructions: no driving during the course of ECT please maintain your hydration with medication and be careful getting up from a seated or lying down position medication can lower blood pressure Visit Report Forms: Patient Portal Discharge page Care Plan Goals: to stabilize your mood decrease your level of anxiety be able to maintain your safety take care of your daily needs Health Concerns: severe depression and anxiety with self-harming thoughts you are denying any active thoughts of self-harm at this time treatment resistant depression Plan of Treatment: electroconvulsive therapy your next treatment is scheduled for SundayAug AND SEP 20 Mental Status Exam Mental Status Exam Narrative: SEEMS IMPROVED LESS AGITATED FUTURE FOCUSED DENIES SELF-HARM SOME DIFFICULTY WITH EPISODIC MEMORY OF RECENT EVENTS DENIES ANY THOUGHTS OF SELF- HARM feels comfortable with discharge knows year month day date president home mattress date of family's names pharmacy Patient Appearance: Appropriate Patient Orientation: Person, Place, Time and Situation Level of Consciousness: Awake and Follows Commands Patient Behavior: Passive, Restless, Anxious and Fearful Mood Description: Constricted, Depressed, Anxious, Sad, Nervous and Apprehensive Affect Description: Depressed, Anxious, Nervous and Apprehensive Patient Cognition Impaired: No Ability to Follow Directions: Poor Speech Pattern: Clear Memory Description: Episodic Impaired (some mild impairmrnt with ect ) and Recent Impaired Data Data Completed and Pending Completed studies during hospitalization [Text1]: CBC unremarkable Chem profile including liver functions thyroid studies unremarkable except for fasting blood sugar 111 Imaging Diagnostic Imaging Impressions Head CT 08/19/20 00:00 IMPRESSION: No acute intracranial abnormality. Cardiology Testing EKG normal sinus rhythm QTC 456 incomplete right bundle branch block DS: Summary Hospital Course Hospital Course: HPI Chief Complaint: Depression Sources of Information: patient interviewed, chart reviewed and crisis/core team assessment reviewed HPI Narrative: the patient is a 64-year-old female with a history of recurrent depression. The patient is referred through the emergency room status post suicide attempt her with a Klonopin overdose. The patient was brought to the emergency room by her who rescue the patient from the overdose attempt. Patient's reportedly states he is no longer able to keep her safe at home. Patient has been increasingly despondent has had problems with concentration attention difficulty D she states with her eyes and feeling that she cannot live like this any longer. She has had her eyes examined there has been no difficulty. Patient is anxious tends to ruminate has reportedly lost 40 lb since March. She has been increasingly hopeless helpless despondent with intrusive suicidal thoughts. She has had a number of reported medication changes including tapering off of Cymbalta clonazepam was recently increased to 3 mg bedtime she was restarted on Lexapro 5 mg daily has been on mirtazapine 30 mg daily. She is also on Topamax 75 mg Geodon 20 mg hydroxyzine 50 mg at bedtime atorvastatin 10 mg daily levothyroxine 88 micro g daily propranolol 20 b.i.d. nitroglycerin 0.4 mg sublingual p.r.n.. The patient has not had trials of lithium Lamictal Abilify Rexulti. The patient in the emergency room was reportedly wanting to go home she had been referred to this teletypewriter installer by Dr. Fuentes her outpatient psychiatrist for evaluation of ECT or TMS. Patient has been increasingly decompensating since March. Her psychiatrist is Dr. Hannah Fuentes telephone [phone] to patient denies any history of caro denies any history of hallucinations or delusional material S/P suicide attempt x 2 at home hanging and took OD klonapin was brought in by her . 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 Kristopher Fuentes the patient has a history of prior psychiatric hospitalizations last at [facility] 2 and half years ago. History of suicidality but until wrist recently no history of past suicide attempt. First depressive episode age 51 the patient has a history of hospitalization at [facility] in 2017 another hospitalization 2018 she is mode had multiple medication trials. the patient was admitted on a conditional voluntary on 08/17/2020. Case reviewed extensively with her and also with Dr. Mario Alberto Fuentes her outpatient psychiatrist. the patient was quite anxious agitated distraught on admission. These much reassurance. On 1 hand knew she needed to be in inpatient setting for safety on the other hand up could not stand being away from home. she was quite obsessional fixed and thought with limited flexibility. She denied active self-harm but was terrified of thought of any change in her medication particularly with her sleep medication which had been up to 3 mg of clonazepam. With the patient had been referred for E electroconvulsive therapy at she had failed multiple medication trials. She also had conversion symptoms which she had had in the past when depressed related to not seeing I was told this had been worked up previously Eventually decision was made to start ECT patient's and psychiatrists were strongly on board the patient eventually did give informed consent but remain quite anxious about the treatment. Lexapro was discontinued and Trintellix started mirtazapine was continued. him Geodon 20 mg was discontinued as this did not seem at all helpful in stabilizing the patient's condition as an outpatient. First Zyprexa was tried this was not helpful afterward Seroquel started which was eventually quite helpful for sleep anxiety and depression. Eventually decision was made to do ECT with the use of flumazenil also clonazepam could be continued as the patient was ruminating regarding sleep in anxiety bed tapering down on clonazepam. Propranolol was continued the patient had a total of 6 unilateral ECT treatments. On 2 occasions because of ECT confusion and anxiety only 2 treatments a week were given and this seemed to be tolerated much better . patient's last treatment 6. Was September 06 treated right unilateral at 0.5 program seizure of 66 seconds treated with etomidate and succinylcholine flumazenil given pretreatment adequate seizure was obtained in spite of the patient being on clonazepam. Decision was made to discharge patient give her a few days without ECT T and the patient had appeared to have significantly stabilized she was much less anxious less depressed of thoughts of self-harm at time discharge. Plan was discussed to transition to some form of maintenance treatment. Status at Discharge Cognitive/behavioral status at discharge: patient come future oriented states she can maintain her safety when home Functional status at discharge: independent ambulation Overall status at discharge: patient is progressing back to baseline Time Spent with Patient Time attestation: Total time spent providing and/or coordinating discharge services: Time spent: Greater than 30 minutes Specific discharge activities: reviewed diagnosis medication coping strategies safety issues at home
== END 2020-09-09 13:45 | disposition home or self-care (01) | DRG 885 ==
LOC: HO.ED 08-17 15:42 → HO.PM5 08-17 15:44
PROVIDERS: Nurse Practitioner Family; Physician Assistant; Admitting Provider Psychiatry & Neurology Psychiatry; Emergency Provider Emergency Medicine; PCP Family Medicine; Referring Provider Psychiatry & Neurology Psychiatry; Visit Provider Psychiatry & Neurology Psychiatry
PROC: GZB4ZZZ Other Electroconvulsive Therapy (ICD-10-PCS; CPT 90870; principal; 2020-08-23 14:00)
PROC: (CPT 90870; principal; 2020-08-30 14:00)
DX: F33.2 Major depressive disorder, recurrent severe without psychotic features (principal); R45.851 Suicidal ideations; E03.9 Hypothyroidism, unspecified; I10 Essential (primary) hypertension; F41.9 Anxiety disorder, unspecified; E78.5 Hyperlipidemia, unspecified; Z20.828 Contact with and (suspected) exposure to other viral communicable diseases; Z79.890 Hormone replacement therapy; Z79.899 Other long term (current) drug therapy
CPT/HCPCS: 36415; 70450; 80053; 80061; 80076; 80307; 80320; 81003; 82248; 82607; 82746; 84443; 85025; 85610; 85730; 87635; 90870; 93005; 99222; 99232; 99239; 99282; 99285; G0480; J0330; J1885; J2060; J2405

== ENCOUNTER 2020-09-13 06:06 | Day surgery (SDC) | payer MEDICARE, OTHER, SELFPAY ==
[2020-09-13 06:26] VITALS: BP 129/75; PULSE 63; RESP 18; TEMP 36.3; O2SAT 96; BMI 38.0
[2020-09-13] MEDS: Lactated Ringers 1,000 ML 50 ML IVCONT (07:05)
--- NOTE | 2020-09-13 07:09 | HO.ECTPROC ---
ECT Procedure Note Diagnosis/Treatment Diagnosis: Major Depressive Disorder Previous ECT Date: 09/06/20 Current Treatment Number: 1 Treatment: Maintenance Interval Clinical Notes: c/o anxiety. I dont want to be here ECT Settings Device: THYMATRON DGx Electrode Placement: Right Unilateral Program/Pulse Width: 0.50 Energy Percent: 80 Seizure Duration By EEG (in seconds): 67 By Motor Observation (in seconds): 54 Medications Administration General Anesthetic: Etomidate (16) Muscle Relaxant: Succinylcholine (80) Ancillary Medications Analgesics: Torodol - Pre ECT (15) Anti-emetics: Zofran - Pre ECT (4) Miscillaneous Medications: Propofol (30), Flumazenil (0.5 not too early) and Other (lorazepam 1 mg post) Airway Management Airway Management: Bag Mask Ventilation Treatment Recommendations Electrode Placement: Right Unilateral Program/Pulse Width: 0.25 Notes: Change to 0.25 Pt Tolerated Procedure w/o Issue: Yes
--- NOTE | 2020-09-13 07:09 | MHC.SHP ---
Pre-Procedural Eval Section A The patient is an INPATIENT: No Changes since office visit: No Cold of Flu in the past 2 weeks, No New Medical Problems, No Changes in Medication and No Patient answered all questions The History & Physical has been completed within 30 days and I have reviewed it.: Yes Section B Chief Complaint: severe depression Allergies: Allergies Allergy/AdvReac Type Severity Reaction Status Date / Time Iodinated Contrast Media Allergy Intermediate Hives Verified 09/06/20 06:42 Plan Diagnosis/Plan: Unchanged Patient has been examined and remains a candidate for the planned procedure
--- NOTE | 2020-09-13 07:22 | P.CONAN_ITS ---
[facility] Past Medical History Medical History Constipation Endometriosis Hypercholesteremia Hypertension Hypothyroidism Major depressive disorder, recurrent severe without psychotic features Surgical History Surgical History Hx of appendectomy Social History Social History Household Members: Spouse Housing: House Alcohol intake: never Smoking Status: Former smoker Years Smoked: 5 Advance Directives: No Advance Directives Information Provided: Yes service: No Sexual orientation: Straight/Heterosexual Meds Allergies Allergy/AdvReac Type Severity Reaction Status Date / Time Iodinated Contrast Media Allergy Intermediate Hives Verified 09/06/20 06:42 Home Medications Medication Instructions Recorded Confirmed Type atorvastatin 10 mg PO DAILY 08/15/20 08/15/20 History hydroxyzine HCl 50 mg PO BEDTIME 08/15/20 08/15/20 History levothyroxine 88 mcg PO DAILY 08/15/20 08/15/20 History mirtazapine 30 mg PO BEDTIME 08/15/20 08/15/20 History nitroglycerin 0.4 mg SUBLINGUAL Q5M PRN 08/15/20 08/15/20 History propranolol 20 mg PO BID 08/15/20 08/15/20 History Exam Exam Date and Time: September 13, 2020 0722 Height,Weight and Vital Signs: Height 5 ft 1 in Weight 91.172 kg Last Vital Signs Temp 97.4 F 09/13/20 06:26 Pulse 63 09/13/20 06:26 Resp 18 09/13/20 06:26 BP 129/75 09/13/20 06:26 Pulse Ox 96 09/13/20 06:26 Assessment and Plan Assessment Anesthesia Assessment: Anesthesia Plan Discussed and Chart Reviewed Final Anesthetic Review NPO: Yes ASA Class: III Final Preanesthetic Review: No Changes in Pt Med Stat, Meds/Allgs Chart Reviewed, Consent Obtained/Reviewed and Anes Risks/Benef Reviewed Patient Risk: Intermediate Procedure Risk: Low Anesthetic Plan Anesthetic Plan: GA Disposition: Standard PACU
[2020-09-13 07:43] VITALS: BP 113/74; PULSE 69; RESP 12; TEMP 36.8; O2SAT 96
[2020-09-13 07:48] VITALS: BP 132/78; PULSE 65; RESP 16; O2SAT 97
[2020-09-13 07:53] VITALS: BP 136/82; PULSE 70; RESP 16; O2SAT 96
[2020-09-13 07:58] VITALS: BP 130/74; PULSE 64; RESP 14; O2SAT 94
[2020-09-13 08:26] VITALS: BP 144/74; PULSE 58; RESP 16; TEMP 36.1; O2SAT 95
== END 2020-09-13 09:01 | disposition home or self-care (01) ==
PROVIDERS: PCP Family Medicine; Visit Provider Psychiatry & Neurology Psychiatry
PROC: (CPT 90870; principal; 2020-09-13 07:00)
DX: F33.2 Major depressive disorder, recurrent severe without psychotic features (principal)
CPT/HCPCS: 90870; J0330; J1885; J2060; J2405